=== PATIENT | female | born 1950 | race Caucasian/White ===

== ENCOUNTER 2017-11-10 19:17 | Emergency (ER) | payer MEDICARE, SELFPAY ==
[2017-11-10 19:19] VITALS: BP 214/107; PULSE 72; RESP 20; TEMP 36.5; O2SAT 98
--- NOTE | 2017-11-10 20:05 | CT_ITS ---
STUDY: CT ABDOMEN AND PELVIS WITHOUT CONTRAST REASON FOR EXAM: Female, 67 years old. Abdominal pain, nausea and elevated blood pressure. History of GERD, hypertension, kidney stones, bladder cancer, hernia surgery, cholecystectomy, hysterectomy, bladder resection with urostomy. RADIATION DOSAGE (If Supplied By Facility): CTDIvol = ( 10.58 ) mGy, DLP = ( 705.58 ) mGycm TECHNIQUE: Transaxial images were obtained from the dome of the diaphragm to the symphysis pubis without oral contrast, and without intravenous contrast. Sagittal and coronal images were reconstructed. Individualized dose optimization techniques were used for this CT. COMPARISON: Prior abdomen and pelvic CT exam of March 29, 2017 FINDINGS: The visualized lung bases are unremarkable. The visualized portions of the heart are within normal limits. Normal liver. Absence of the gallbladder. Nondistended common bile duct with no visualized filling defects. Normal spleen. Normal pancreas. Stable 2.2 cm nodule of the left adrenal gland. Normal right adrenal gland. 2 mm nonobstructing stone in the lower pole of the right kidney without hydronephrosis or ureteral stones. The right ureter can be followed to the urinary conduit. Normal size of the left kidney. Negative for hydronephrosis, renal or ureteral stones. The left ureter can be followed to the anterior urinary conduit. Partly food filled stomach. Distended food filled small bowel to the level of herniation of small bowel at the site of the catheter placement into the right abdominal wall. This catheter extends inferiorly and drains a urinary conduit. There is also a small hernia closer to the midline that contains only a small portion of one wall of a dilated loop of small bowel. The transition point of the obstruction appears to be the entrance into the hernia of the right abdominal wall. Minimal diverticulosis of the colon. Unremarkable ileal colic anastomosis. Mild plaque of the aorta. Normal inferior vena cava. Normal retroperitoneum. Status post hysterectomy with no pelvic mass or free fluid of the pelvis. Degenerative changes of the lumbar spine. Demineralized osseous structures. CT/Abdomen/Pelvis without Cont IMPRESSION: High-grade small bowel obstruction secondary to a herniation of small bowel at the site of the urostomy, right mid abdominal wall. Also, there is a second smaller herniation near the midline at approximately the same level which contains only a small portion of the anterior wall of a dilated loop of small bowel. This does not appear to be the point of obstruction but might be acting as a tether point contributing to the obstruction at the urostomy. There is some general wall thickening and stranding in the adjacent soft tissues associated with the most distal obstructed bowel loops. No additional acute findings or changes. Negative for hydronephrosis. The ureters are nonobstructed to the urinary conduit which has been created from the right colon. The conduit appears to be adequately drained by the urostomy. Status post cholecystectomy. Status post hysterectomy. Diverticulosis. Atherosclerosis. Stable nodule of the left adrenal gland. N.B. : The above information has been verbally conveyed by Lor Fernandez MD to Dr. Jigna Coronado, Referring Physician, on 11/10/2017 21:13:02 (ET). Electronically Signed: Lor Fernandez MD at 21:12 EST , Service support , N.B. : The above information has been verbally conveyed by Lor Fernandez MD to Dr. Jigna Coronado, Referring Physician, on 11/10/2017 21:13:02 (ET).
[2017-11-10] MEDS: 0.9% Normal Saline 1,000 ML 150 ML IV (20:14)
[2017-11-10 20:15] LABS: Absolute Lymphocyte Count 2.67 X10^3/ul (0.83-4.51); Absolute Neutrophil Count 4.7 X10^3/uL (2.0-7.7); Basophil# 0.02 X10^3/uL; Basophil% 0.2 % (0-1); Eosinophil# 0.12 X10^3/uL; Eosinophils% 1.5 % (0-5); Hematocrit 41.9 % (37-47); Hemoglobin 13.7 g/dl (12.0-15.0); Lymphocyte # 2.67 X10^3/ul (4.0); Lymphocyte % 32.8 % (19-41); Mean Corp Hgb Conc 32.7 g/gl (32-36); Mean Corpuscular Volume 88.8 fL (81-99); Mean Platelet Vol. 9.3 fl (6.2-12.0); Monocyte# 0.59 X10^3/uL; Monocyte% 7.2 % (0-10); Neutrophil # 4.73 X10^3/uL (2.7-7.7); Neutrophil % 58.2 % (47-70); Platelet Count 228 K/mm3 (150-450); RBC Distribution Width CV 13.6 % (11.6-14.6); RBC Distribution Width SD 44.4 fl (35.1-43.9); Red Blood Count 4.72 M/mm3 (4.2-5.4); White Blood Count 8.1 K/mm3 (4.4-11.0)
[2017-11-10] MEDS: Ondansetron 4 MG/2 ML Vial IV ×2 (20:15→21:36)
[2017-11-10 20:16] LABS: POSITIVE COUNT NO; POSITIVE DIFFERENTIAL NO; POSITIVE MORPHOLOGY NO
[2017-11-10 20:25] LABS: AST(SGOT) 16 U/L (15-37); Alanine Aminotransfer ALT/SGPT 18 U/L (13-56); Albumin, Serum 3.9 g/dL (3.2-5.0); Alkaline Phosphatase 102 U/L (45-117); Anion Gap 9 (5-15); BUN 16 mg/dL (7-18); BUN/Creat Ratio 17.2 RATIO (10-20); Bilirubin, Direct 0.11 mg/dL (0.00-0.30); Calcium,Total 9.3 mg/dL (8.5-10.1); Chloride 111 mmol/L (98-107); Creatinine, Serum 0.93 mg/dL (0.55-1.02); EST Glomerular Filtration Rate 64 mL/min (>60); Est Glom Filt Rate - Afr Amer 78 mL/min (>60); Estimated Creatinine Clearance 49.22 ml/min; Globulin 3.6 g/dL (2.2-4.2); Glucose 96 mg/dL (70-110); Lactic Acid 0.7 mmol/L (0.4-2.0); Lipase 108 U/L (73-393); Protein, Total 7.5 g/dL (6.4-8.2); Sodium Level 144 mmol/L (136-145)
[2017-11-10 21:17] VITALS: BP 184/92; PULSE 77; RESP 22; O2SAT 97
--- NOTE | 2017-11-10 21:59 | ED.VISSUMM ---
- ER Visit Summary Date of Service: 11/10/17 Chief Complaint: Abdominal pain and nausea History of Present Illness: The patient is a 67 F who reports onset of abdominal pain and nausea earlier this evening. She points to the epigastric region. Past history is significant for bladder cancer. She has had a urostomy, hysterectomy, multiple hernia repair surgeries. Patient states she has a known abdominal hernia that they have been watching. She was told he would not open her back up for surgery unless it was an emergency. Physical Examination: Blood pressure on arrival is 214/107, temperature 97.7, heart rate 72, respiratory rate 20, pulse ox 98% on room air. Patient's lying in bed appears uncomfortable. Heart is regular rate and rhythm. Lung sounds are clear. Abdomen is soft with tenderness in the epigastric region. She has hypoactive bowel sounds. Urostomy is in place in the right lower abdomen. This area is nontender to palpation. Test Results: CBC and chemistry studies are normal. LFTs and lipase are normal. Lactate is normal at 0.7. CT the flank reveals high-grade small bowel obstruction secondary to herniation of small bowel at the site of the urostomy. This is located in the right mid abdominal wall. There is a secondary hernia just medial to this that may be a tether point. Emergency Department Course and Treatment: Patient was medically with morphine, Zofran, and IV fluids. On repeat evaluation patient was significantly improved. When I went back in to talk about test results, patient reports her pain is starting to return. Blood pressure is significantly improved with pain control. I spoke with Dr. Mcfarland, on-call for surgery. He advises that parastomal hernias need to be repaired with moving the stoma and repair of the hernia. We do not have a specialist here to do that. I spoke with the transfer line at [facility] with the patient had her previous surgeries. Patient has been accepted by Dr. Jones and will be seen in the emergency room. Treatment Plan: [] Disposition: Transfer Impression: Parastomal hernia causing small bowel obstruction This note was generated with [employer] dictation software. It may contain incorrect words, spelling, and punctuation that were not noted in review of the chart prior to signing ED Disposition - Plan for ED Patient: Chief Complaint: Abd Pain Referrals: Antonio Mackey MD [Primary Care Provider] -
--- NOTE | 2017-11-10 22:04 | ED.DCSUM_ITS ---
- ER Visit Summary Date of Service: 11/10/17 Chief Complaint: Abdominal pain and nausea History of Present Illness: The patient is a 67 F who reports onset of abdominal pain and nausea earlier this evening. She points to the epigastric region. Past history is significant for bladder cancer. She has had a urostomy , hysterectomy, multiple hernia repair surgeries. Patient states she has a known abdominal hernia that they have been watching. She was told he would not open her back up for surgery unless it was an emergency. Physical Examination: Blood pressure on arrival is 214/107, temperature 97.7, heart rate 72, respiratory rate 20, pulse ox 98% on room air. Patient's lying in bed appears uncomfortable. Heart is regular rate and rhythm. Lung sounds are clear. Abdomen is soft with tenderness in the epigastric region. She has hypoactive bowel sounds. Urostomy is in place in the right lower abdomen. This area is nontender to palpation. Test Results: CBC and chemistry studies are normal. LFTs and lipase are normal. Lactate is normal at 0.7. CT the flank reveals high-grade small bowel obstruction secondary to herniation of small bowel at the site of the urostomy. This is located in the right mid abdominal wall. There is a secondary hernia just medial to this that may be a tether point. Emergency Department Course and Treatment: Patient was medically with morphine, Zofran, and IV fluids. On repeat evaluation patient was significantly improved. When I went back in to talk about test results, patient reports her pain is starting to return. Blood pressure is significantly improved with pain control. I spoke with Dr. Mcfarland, on-call for surgery. He advises that parastomal hernias need to be repaired with moving the stoma and repair of the hernia. We do not have a specialist here to do that. I spoke with the transfer line at [facility] with the patient had her previous surgeries. Patient has been accepted by Dr. Jones and will be seen in the emergency room. Treatment Plan: [] Disposition: Transfer Impression: Parastomal hernia causing small bowel obstruction This note was generated with [employer] dictation software. It may contain incorrect words, spelling, and punctuation that were not noted in review of the chart prior to signing ED Disposition - Plan for ED Patient: Chief Complaint: Abd Pain Referrals: Antonio Mackey MD [Primary Care Provider] -
[2017-11-10 22:05] VITALS: BP 149/104; PULSE 80; RESP 13; O2SAT 95
--- NOTE | 2017-11-10 22:35 | ED.RN ---
REPORT TO [facility]. PT SKIN P/W/D, RESP EVEN AND UNLABORED, PT A&O X 3, NO DISTRESS NOTED. PT OUT OF ED WITH [facility] FOR TRANSPORT TO [facility].
== END 2017-11-10 22:37 | disposition short-term general hospital (02) ==
PROVIDERS: Emergency Provider Emergency Medicine; Family Provider Family Medicine; PCP Family Medicine
DX: K43.3 Parastomal hernia with obstruction, without gangrene (principal); Z85.51 Personal history of malignant neoplasm of bladder; Z90.710 Acquired absence of both cervix and uterus; Z90.49 Acquired absence of other specified parts of digestive tract; Z87.19 Personal history of other diseases of the digestive system; Z93.6 Other artificial openings of urinary tract status; K21.9 Gastro-esophageal reflux disease without esophagitis; I10 Essential (primary) hypertension; E78.00 Pure hypercholesterolemia, unspecified; Z87.442 Personal history of urinary calculi; Z72.0 Tobacco use
CPT/HCPCS: 74176; 80048; 80076; 83605; 83690; 85025; 96361; 96374; 96375; 96376; 99285; J7030; A4216; J2405

== ENCOUNTER → 2017-12-06 14:33 | Outpatient (CLI) | payer MEDICARE, SELFPAY ==
--- NOTE | 2017-12-06 14:36 | RAD_ITS ---
STUDY: X-RAY - RIGHT KNEE REASON FOR EXAM: Female, 67 years old. Right-sided knee pain after injury one week ago. TECHNIQUE: 3 view(s) of the knee. COMPARISON: None. FINDINGS: Normal visualized distal femur. Normal visualized proximal tibia and fibula. Normal proximal tibiofibular articulation. There is no demonstrated fracture. Normal medial femorotibial compartment. Normal lateral femorotibial compartment. There is mild degenerative arthrosis of the patellofemoral articulation. There is a soft tissue prominence in the suprapatellar region suggesting a small volume joint effusion. The soft tissue structures are unremarkable. RAD/Knee 3 Views IMPRESSION: 1. No radiographic evidence for acute or healing fracture. 2. Small joint effusion. Electronically Signed: Caitlyn Cobian MD at 17:13 EST , Service support ,
== END ==
PROVIDERS: Family Provider Family Medicine; PCP Family Medicine; Visit Provider Family Medicine
DX: S89.91XA Unspecified injury of right lower leg, initial encounter (principal); X58.XXXA Exposure to other specified factors, initial encounter
CPT/HCPCS: 73562

== ENCOUNTER 2018-01-11 09:41 | Outpatient (RCR) | payer MEDICARE, SELFPAY ==
[2018-01-11 10:01] VITALS: BP 149/89; PULSE 61; RESP 16; TEMP 36.2; BMI 28.0
--- NOTE | 2018-01-11 23:01 | HP.PCM_ITS ---
(1) Abdominal wall ulcer Status: Chronic Current Visit: Yes Code(s): L98.499 - Non-pressure chronic ulcer of skin of other sites with unspecified severity (2) History of bladder cancer Status: Chronic Current Visit: No Code(s): Z85.51 - Personal history of malignant neoplasm of bladder (3) Suprapubic catheter Status: Chronic Current Visit: Yes Code(s): Z93.59 - Other cystostomy status History of Present Illness Date of Service: 01/11/18 Chief Complaint: Betsy (Abdominal ) Stoma Ulcer History of Wound: Ms. Crawford is a 67yo with a Chronic history of Abdominal wall /Stoma site ulcer. She also has a history of Bladder Ca (20 years ago )s/p Surgery and a permanent Suprapubic Catheter. She ahd been seen here in the past for her chronic Stoma site ulcer. Shee has had no significant change in stoma ulcer over the years however, patient states that twice daily dressing with Aquacel has kept it stable. She is here for her biannual check up and refill on supplies. She ahs no concerns at this time. Past Medical History Past Medical History: Chronic Problems Suprapubic catheter (Chronic) Abdominal wall ulcer (Chronic) History of tobacco use (Chronic) History of bladder cancer (Chronic) History of kidney stones (Chronic) GERD (gastroesophageal reflux disease) (Chronic) Chronic low back pain (Chronic) Surgical History: cholecystectomy, herniorrhaphy, - - Removal of bladder with reconstruction. The surgery was 20 years ago. Allergies/Adverse Reactions: Allergies Iodinated Contrast- Oral and IV Dye [Iodinated Contrast Media - IV Dye] Allergy (Verified 01/11/18 10:10) Other Penicillins Allergy (Verified 01/11/18 10:10) Rash Sulfa (Sulfonamide Antibiotics) Allergy (Verified 01/11/18 10:10) Rash amlodipine Adverse Reaction (Verified 01/11/18 10:19) Other ciprofloxacin [From Cipro] Adverse Reaction (Verified 01/11/18 10:10) Other ciprofloxacin HCl [From Cipro] Adverse Reaction (Verified 01/11/18 10:10) Other hydromorphone HCl [From Dilaudid] Adverse Reaction (Verified 01/11/18 10:10) Other nitrofurantoin [From Macrobid] Adverse Reaction (Verified 01/11/18 10:10) Other nitrofurantoin macrocrystalline [From Macrobid] Adverse Reaction (Verified 01/11 10:10) Other pramipexole Adverse Reaction (Verified 01/11/18 10:19) Other sucralfate Adverse Reaction (Verified 01/11/18 10:19) Other Home Medications: Ambulatory Orders Medication Instructions Recorded Gabapentin [Neurontin] 300 mg PO BID 07/19/13 Omeprazole [Prilosec] 40 mg PO DAILY 07/19/13 Cholecalciferol (Vitamin D3) 100,000 unit PO QWEEK 02/09/17 [Vitamin D] Cyclobenzaprine [Flexeril] 10 mg PO QHS 02/09/17 Lisinopril [Zestril] 10 mg PO DAILY 02/09/17 Potassium Citrate [Urocit-K] 10 meq PO TID 02/09/17 Calcium Carbonate/Vitamin D3 1 each PO DAILY 01/11/18 [Calcium 600-Vit D3 200 Tablet] Hydrocodone/Acetaminophen [[facility] 1 each PO BID 01/11/18 5-325 Tablet] Smoking Status: Current every day smoker Review of Systems Constitutional: Denies: Anorexia, Malaise, Weakness Eyes: Denies: Blurred vision, Eyelid Inflammation HEENT: Denies: Difficulty Hearing, Difficulty Swallowing, Head Aches Cardiovascular: Denies: Chest Pain, Chest Tightness, Syncope Respiratory: Denies: Cough, Hemoptysis, Shortness of breath at rest Gastrointestinal: Denies: Abdominal Pain, Hematemesis, Vomiting Skin: Denies: Dryness, Jaundice Neurological: Denies: Difficulty swallowing, Seizures - Physical Exam Vital Signs Temp Pulse Resp BP 97.1 F L 61 16 149/89 H 01/11/18 10:01 01/11/18 10:01 01/11/18 10:01 01/11/18 10:01 General: Alert, Oriented x3, Cooperative, No apparent distress HEENT: Atraumatic, Normocephalic Oral: Moist Mucosa Neck: Supple Lungs: Normal air movement Cardiovascular: Regular rate, Regular Rhythm Abdomen: Soft, Non Tender Extremities: No cyanosis Skin: Ulcer/ Wound Wound Measurements and Assessment WC - Nurse 1 - General Ulcer Measurement Start: 01/11/18 10:01 Freq: Status: Active Protocol: Activity Type Activity Date Activity User E-Sign Co-Sign Detail Recorded Client Recorded Date Recorded By Document 01/11/18 10:01 [facility] [id number] 01/11/18 10:07 [facility] 01/11/18 10:01 W[facility] Nurse 1 [Ulcer Assessment] #2- SUPRAPUBIC CATH SITE -Combined with other wound No -Current Size (cm) - Length 1.5 -Current Size (cm) - Width 1.6 -Current Size (cm) - Depth 0.1 -Total Square Cm 2.40 -Date of Last Picture (Recall this 01/11/18 field) -Photo Taken Yes -Epithelialization None Present -Tunneling No -Undermining/Tunneling No -Circular Undermining No -Exudate Amt None Present (0 %) -Wound Margin Distinct, Outline Attached -Granulation Amt Large (67-100%) -Granulation Quality Red -Slough/Fibrin No -Necrosis Amt None Present (0 %) -Structure Exposed None/Limited to Skin Breakdown -Texture (Betsy-wound Skin Appearance) Scarring -Moisture (Betsy-wound Skin Appearance Assessed ) -Color (Betsy-wound Skin Appearance) Assessed -Temperature (Betsy-wound Skin No Abnormality Appearance) (Pt Warm) -Tenderness on Palpation (Betsy-wound No Skin Appearance) -Ulcer Cleansing Rinsed/ Irrigated with Saline -Foul Odor after Cleansing No -Anesthetic Used 4% Lidocaine Solution Musculoskeletal: No Muscle Wasting Neurological: Cranial nerves II-XII grossly intact Psych/Mental Status: Normal Affect Debridement Note No debridement was completed today Assessment/Plan Active Problems Suprapubic catheter (Chronic) Abdominal wall ulcer (Chronic) Assessment: Chronic ulcer of stoma. Remote history of bladder cancer. Nicotine dependence. Plan: Ms. Crawford is here for follow up of her chronic however stable betsy Stoma Ulcer. She hs been dressing twice daily with Aquacel and denies any concerns at this time. She deneis increased foul smell or discharge. Continue Aquacel twice daily to the area. Maintain good hygeine and continue increased protein intake. Follow up in 6 months.
== END 2018-02-06 23:59 ==
LOC: WC 09:41
PROVIDERS: Family Provider Family Medicine; PCP Family Medicine; Visit Provider Internal Medicine
DX: K28.7 Chronic gastrojejunal ulcer without hemorrhage or perforation (principal); Z93.59 Other cystostomy status; Z85.51 Personal history of malignant neoplasm of bladder; K21.9 Gastro-esophageal reflux disease without esophagitis; G89.29 Other chronic pain; M54.9 Dorsalgia, unspecified; Z79.899 Other long term (current) drug therapy; F17.200 Nicotine dependence, unspecified, uncomplicated
CPT/HCPCS: 99213; G0463

== ENCOUNTER → 2018-03-02 09:39 | Outpatient (CLI) | payer MEDICARE, SELFPAY ==
[2018-03-02 09:45] LABS: Mucous, Urine 0 SEEN /hpf (<or=2+); Squamous Epithelial Cells - UA 0 SEEN /hpf (5-10)
[2018-03-02 12:35] LABS: ALB/GLOB Ratio 0.9 RATIO (0.9-2.4); AST(SGOT) 18 U/L (15-37); Alanine Aminotransfer ALT/SGPT 18 U/L (13-56); Albumin, Serum 3.7 g/dL (3.2-5.0); Alkaline Phosphatase 106 U/L (45-117); Anion Gap 6 (5-15); BUN 24 mg/dL (7-18); BUN/Creat Ratio 23.8 RATIO (10-20); Calcium,Total 8.9 mg/dL (8.5-10.1); Chloride 107 mmol/L (98-107); Cholesterol 230 mg/dL (200); Creatinine, Serum 1.01 mg/dL (0.55-1.02); EST Glomerular Filtration Rate 58 mL/min (>60); Est Glom Filt Rate - Afr Amer 70 mL/min (>60); Globulin 3.9 g/dL (2.2-4.2); Glucose 94 mg/dL (74-106); High Density Lipoprotein 55 mg/dL; Potassium 4.6 mmol/L (3.5-5.1); Protein, Total 7.6 g/dL (6.4-8.2); Sodium Level 138 mmol/L (136-145); Triglycerides 124 mg/dL; Very Low Density Lipoprotein 25 mg/dL (5-40)
[2018-03-02 12:41] LABS: Color, Urine Yellow (Yellow); Glucose, Dipstick Normal (Normal); Ketone-Dipstick Negative (Negative); Leukocyte Esterase-Dipstick 100 /ul (Negative); Nitrite-Dipstick Positive (Negative); Occult Blood-Urine 25 /ul (Negative); Protein-Dipstick 30 mg/dl (Negative); Urine Bilirubin Dipstick Negative (Negative); Urine Clarity Cloudy (Clear); Urine Urobilinogen Normal (Normal)
[2018-03-02 12:51] LABS: Bacteria 2+ /hpf (None Seen); Red Blood Cells-Urine 0-5 SEEN /hpf (0-5); White Blood Cells 0-5 SEEN /hpf (0-5)
[2018-03-02 13:02] LABS: Absolute Lymphocyte Count 1.76 X10^3/ul (0.83-4.51); Absolute Neutrophil Count 5.8 X10^3/uL (2.0-7.7); Basophil# 0.02 X10^3/uL; Basophil% 0.2 % (0-1); Eosinophil# 0.13 X10^3/uL; Eosinophils% 1.6 % (0-5); Hematocrit 42.8 % (37-47); Hemoglobin 13.8 g/dl (12.0-15.0); Lymphocyte # 1.76 X10^3/ul (4.0); Lymphocyte % 21.2 % (19-41); Mean Corp Hgb Conc 32.2 g/gl (32-36); Mean Corpuscular Hgb 29.5 pg (27.0-32.0); Mean Corpuscular Volume 91.5 fL (81-99); Mean Platelet Vol. 9.7 fl (6.2-12.0); Monocyte# 0.61 X10^3/uL; Monocyte% 7.4 % (0-10); Neutrophil # 5.76 X10^3/uL (2.7-7.7); Neutrophil % 69.5 % (47-70); Platelet Count 258 K/mm3 (150-450); RBC Distribution Width CV 14.5 % (11.6-14.6); RBC Distribution Width SD 47.5 fl (35.1-43.9); Red Blood Count 4.68 M/mm3 (4.2-5.4); White Blood Count 8.3 K/mm3 (4.4-11.0)
[2018-03-02 13:05] LABS: POSITIVE COUNT NO; POSITIVE DIFFERENTIAL NO; POSITIVE MORPHOLOGY NO
[2018-03-03 11:17] LABS: Vitamin D,25 Hydroxy 15.6 ng/mL (29.95-100.01)
[2018-03-03 14:38] LABS: PTHIN 72.7 pg/mL (18.4-80.1)
== END ==
PROVIDERS: Family Provider Family Medicine; PCP Family Medicine; Visit Provider Family Medicine
DX: I10 Essential (primary) hypertension (principal); E78.5 Hyperlipidemia, unspecified; E55.9 Vitamin D deficiency, unspecified; M62.81 Muscle weakness (generalized)
CPT/HCPCS: 36415; 80053; 80061; 81001; 82306; 83970; 84100; 85025

== ENCOUNTER 2018-03-04 08:33 | Emergency (ER) | payer MEDICARE, SELFPAY ==
[2018-03-04 08:33] VITALS: BP 152/82; PULSE 60; RESP 24; TEMP 37; O2SAT 97; BMI 28.8
--- NOTE | 2018-03-04 08:47 | RAD_ITS ---
STUDY: X-RAY - RIGHT ELBOW REASON FOR EXAM: Female, 68 years old. Pain for several days. No known injury. TECHNIQUE: 5 view(s) of the elbow with flexion and extension. COMPARISON: None. FINDINGS: Normal visualized humerus, radius and ulna. Normal radiocapitellar and ulnotrochlear articulations. The soft tissue structures are unremarkable. RAD/Elbow min 3 Views IMPRESSION: Normal x-ray examination of the elbow. Electronically Signed: Alex Lui MD at 9:40 EDT Tel , Service support ,
[2018-03-04] MEDS: morphine 8 MG/ML Syringe 6 MG IM (08:59)
[2018-03-04] MEDS: predniSONE 20 MG Tablet 40 MG PO (09:19)
--- NOTE | 2018-03-04 09:56 | ED.VISSUMM ---
- ER Visit Summary Date of Service: 03/04/18 Chief Complaint: [Right elbow pain] History of Present Illness: The patient is a 68 F [presents the emergency department with pain in her right elbow that started 3 days ago. Patient denies any trauma. Patient is right-hand dominant. Patient denies any fever or recent illness. Patient states that she was sick in January with upper respiratory infection. Patient does not have a history of gout or pseudogout. Patient denies weakness in the extremity. The pain is very positional patient has pain with extension at the elbow. Patient noticed some swelling to the area of the elbow. But no erythema.] Physical Examination: [HEENT-PERRLA, EOMI. Cranial nerves II through XII grossly intact. TMs clear. Mucous membranes moist. No adenopathy. Cardiovascular-regular rate and rhythm without murmur or ectopy Lungs-clear to auscultation, chest wall stable without crepitus or subcu emphysema Abdomen-normoactive bowel sounds, soft, nontender, no rebound or rigidity, no peritoneal signs. Extremities-intact ?4, normal range of motion, normal pulses, atraumatic]. Right elbow-patient has a small joint effusion at the right elbow posteriorly noted there is no evidence for bursitis. Patient has pain with extension of the elbow. No significant edema of the forearm or upper arm. No ropes or cords palpated. Patient has normal pulses. There is no cellulitis or erythema noted. Test Results: [X-rays of the right elbow were normal] Emergency Department Course and Treatment: [Patient was medicated with morphine and prednisone.] Treatment Plan: [I suspect etiology of her symptoms likely gout therefore will start on prednisone and patient has Waldo at home for pain. I will place patient in a sling. Patient has follow-up appointment with her primary care physician in 4 days.] Disposition: [Discharged home in stable condition. Patient advised to return if worsening pain, fever, redness, increased swelling, or condition should worsen in any way.] Impression: [Right elbow pain-suspect gout] This note was generated with [employer] software. It may contain incorrect words, spelling, and punctuation that were not noted in review of the chart prior to signing ED Disposition - Plan for ED Patient: Chief Complaint: Upper Extremity Injury Referrals: Antonio Mackey MD [Primary Care Provider] -
--- NOTE | 2018-03-04 10:01 | ED.DEP ---
ED Disposition - Plan for ED Patient: Chief Complaint: Upper Extremity Injury Instructions: ED Arthritis Gout Prescriptions: Prednisone [Deltasone] 20 mg PO BID #10 tab Referrals: Antonio Mackey MD [Primary Care Provider] - 3-5 Days
[2018-03-04 10:07] VITALS: BP 129/74; PULSE 81; RESP 20; O2SAT 97
--- NOTE | 2018-03-04 10:07 | ED.RN ---
THIS NURSE REVIEWED D/C INSTRUCTIONS WITH PT. PT VERBALIZED UNDERSTANDING OF INSTRUCTIONS. PT DENIES FURTHER NEEDS OR QUESTIONS AT THIS TIME. PT HAS RIDE COMING TO GET HER.
== END 2018-03-04 10:09 | disposition home or self-care (01) ==
LOC: ED 08:57
PROVIDERS: Emergency Provider Emergency Medicine; Family Provider Family Medicine; PCP Family Medicine
DX: M25.521 Pain in right elbow (principal); I10 Essential (primary) hypertension; Z79.899 Other long term (current) drug therapy; Z72.0 Tobacco use
CPT/HCPCS: 73080; 96372; 99285

== ENCOUNTER → 2018-03-10 13:56 | Outpatient (CLI) | payer MEDICARE, SELFPAY ==
[2018-03-10 15:54] LABS: Uric Acid 4.8 mg/dL (2.6-6.0)
== END ==
PROVIDERS: Family Provider Family Medicine; PCP Family Medicine; Visit Provider Family Medicine
DX: M10.9 Gout, unspecified (principal)
CPT/HCPCS: 36415; 84550

== ENCOUNTER 2018-04-02 22:28 | Inpatient (IN) | payer MEDICARE, SELFPAY ==
[2018-04-02 22:29] VITALS: BP 172/74; PULSE 67; RESP 18; TEMP 36.7; BMI 29.9
--- NOTE | 2018-04-02 22:41 | CT_ITS ---
STUDY: CT ABDOMEN AND PELVIS WITHOUT CONTRAST REASON FOR EXAM: Female, 68 years old. Right flank pain RADIATION DOSAGE (If Supplied By Facility): CTDIvol = ( 9.04 ) mGy, DLP = ( 501.29 ) mGycm TECHNIQUE: Transaxial images were obtained from the dome of the diaphragm to the symphysis pubis without oral contrast, and without intravenous contrast. Sagittal and coronal images were reconstructed. Individualized dose optimization techniques were used for this CT. COMPARISON: November 10, 2017 FINDINGS: The lung bases are clear. There is evidence of cystectomy with a right lower quadrant urostomy. A Sol's catheter is within a segment of small bowel in the right inguinal hernia with a catheter placed through the right lower quadrant urostomy. There is extensive right-sided perirenal fluid collection in a nonobstructing 3.4 mm in right calyceal calculus The left kidney is normal. A right lower quadrant parastomal herniation of small bowel is noted. The liver is normal with no dilated intrahepatic biliary radicles. Previous cholecystectomy. The spleen, pancreas and right adrenal are normal. There is a 2.5 cm left adrenal mass with a Hounsfield unit of -7. It is probably a benign adenoma. The stomach is normal. There is no bowel distention, acute appendicitis or diverticulitis. No abnormally constricting large bowel lesions. There is no ascites, free intraperitoneal air or any evidence of epiploic appendagitis. The vascular structures in the retroperitoneum are normal The bones and joints seen are normal with no osteolytic or osteoblastic changes There is no retrocrural, retroperitoneal or mesenteric adenopathy. There is no mesenteric mistiness There is a large right inguinal hernia with loops of bowel in the hernial sac. . CT/Abdomen/Pelvis without Cont IMPRESSION: Previous cystectomy with a right lower quadrant urostomy for drainage. A right-sided hydroureteronephrosis with no evidence of an obstructing ureteric calculus. There is extensive perirenal streakiness and fluid collection. A tiny 3.4 mm nonobstructing right calyceal calculus. A 2.5 cm left adrenal adenoma. A large right-sided inguinal hernia with loops of small bowel in the hernial sac. The balloon portion of a Sol's catheter is within small bowel in the hernial sac. A right lower quadrant parastomal hernia with loops of small bowel within the hernial sac but no subsequent intestinal obstruction. No acute appendicitis or diverticulitis Electronically Signed: Kristopher Shaw, at 0:14 EDT Tel , Service support ,
[2018-04-02 23:15] VITALS: BP 178/80; PULSE 66; RESP 18; O2SAT 94
[2018-04-02] MEDS: 0.9% Normal Saline 1,000 ML 125 ML IV (23:24)
[2018-04-02] MEDS: Ondansetron 4 MG/2 ML Vial IV (23:24)
[2018-04-02] MEDS: Morphine 4 MG/ML Syringe IV (23:24)
[2018-04-02 23:46] LABS: Absolute Lymphocyte Count 1.64 X10^3/ul (0.83-4.51); Absolute Neutrophil Count 13.5 X10^3/uL (2.0-7.7); Basophil# 0.02 X10^3/uL; Basophil% 0.1 % (0-1); Eosinophils% 0.6 % (0-5); Hematocrit 39.4 % (37-47); Hemoglobin 12.7 g/dl (12.0-15.0); Lymphocyte # 1.64 X10^3/ul (4.0); Lymphocyte % 10.1 % (19-41); Mean Corp Hgb Conc 32.2 g/gl (32-36); Mean Corpuscular Hgb 29.2 pg (27.0-32.0); Mean Corpuscular Volume 90.6 fL (81-99); Mean Platelet Vol. 9.4 fl (6.2-12.0); Monocyte# 0.92 X10^3/uL; Monocyte% 5.7 % (0-10); Neutrophil # 13.54 X10^3/uL (2.7-7.7); Neutrophil % 83.4 % (47-70); Platelet Count 240 K/mm3 (150-450); RBC Distribution Width SD 46.7 fl (35.1-43.9); Red Blood Count 4.35 M/mm3 (4.2-5.4); White Blood Count 16.2 K/mm3 (4.4-11.0)
[2018-04-02 23:52] LABS: POSITIVE COUNT NO; POSITIVE DIFFERENTIAL NO; POSITIVE MORPHOLOGY NO
[2018-04-03] VITALS (22 sets, daily range): BP systolic 126–180; BP diastolic 60–103; PULSE 64–84; RESP 15–25; TEMP 36.4–39.2; O2SAT 88–99; BMI 28.7
[2018-04-03] LABS: Anion Gap 5 (5-15); BUN 34 mg/dL (7-18); BUN/Creat Ratio 28.3 RATIO (10-20); Calcium,Total 8.8 mg/dL (8.5-10.1); Chloride 110 mmol/L (98-107); EST Glomerular Filtration Rate 48 mL/min (>60); Est Glom Filt Rate - Afr Amer 58 mL/min (>60); Estimated Creatinine Clearance 37.63 ml/min; Glucose 126 mg/dL (74-106); Potassium 4.4 mmol/L (3.5-5.1); Sodium Level 139 mmol/L (136-145)
[2018-04-03 00:07] LABS: Lactic Acid 0.4 mmol/L (0.4-2.0)
[2018-04-03 00:14] LABS: Mucous, Urine 0 SEEN /hpf (<or=2+); Squamous Epithelial Cells - UA 0 SEEN /hpf (5-10)
[2018-04-03] MEDS: Morphine 4 MG/ML Syringe IV ×2 (00:15→02:43)
[2018-04-03 00:24] LABS: Color, Urine Yellow (Yellow); Glucose, Dipstick Normal (Normal); Ketone-Dipstick 15 mg/dl (Negative); Leukocyte Esterase-Dipstick 25 /ul (Negative); Nitrite-Dipstick Positive (Negative); Occult Blood-Urine 25 /ul (Negative); Protein-Dipstick 30 mg/dl (Negative); Specific Gravity, Urine 1.015 (1.002-1.030); Urine Bilirubin Dipstick Negative (Negative); Urine Clarity Sl. Cloudy (Clear); Urine Urobilinogen Normal (Normal)
[2018-04-03 00:37] LABS: Bacteria 1+ /hpf (None Seen); Red Blood Cells-Urine 0-5 SEEN /hpf (0-5); White Blood Cells 25-50 SEEN /hpf (0-5)
[2018-04-03] MEDS: Ceftriaxone 1 GM/50 ML BAG IV ×2 (00:55→23:19)
--- NOTE | 2018-04-03 00:55 | ED.DCSUM_ITS ---
- ER Visit Summary Date of Service: 04/03/18 Chief Complaint: [Abdominal pain] History of Present Illness: The patient is a 68 F [presents to the emergency department with complaint of abdominal discomfort that started 2 hours ago rather suddenly. Currently rates her pain a 9 out of 10. Patient called EMS who medicated her with fentanyl. Patient complains of nausea but no vomiting. Patient has had some sweats. She denies any fever. Patient does have a history of bladder cancer with resection of her bladder. Patient also has a history of hypertension. Patient has had prior urinary tract infections which she states of come on quickly in the past.] Physical Examination: [HEENT-PERRLA, EOMI. Cranial nerves II through XII grossly intact. TMs clear. Mucous membranes moist. No adenopathy. Cardiovascular-regular rate and rhythm without murmur or ectopy Lungs-clear to auscultation, chest wall stable without crepitus or subcu emphysema Abdomen-normoactive bowel sounds, soft. Patient has tenderness over the right lower quadrant and lower abdomen diffusely. Patient has a suprapubic catheter in place. Patient has some CVA tenderness on the right. Extremities-intact ?4, normal range of motion, normal pulses, atraumatic] Test Results: [CBC with differential obtained showed a white count of 16.2, hemoglobin 12.7, hematocrit 39, placed 240. Chemistries unremarkable. Urinalysis was positive for nitrites and 25 leukocyte esterase, 25-50 WBCs, and +[address] flank obtained showed previous cystectomy and a 2.5 cm left adrenal adenoma. Patient also had right hydro-ureter and hydronephrosis with perirenal stranding and fluid collection. Emergency Department Course and Treatment: [Urine culture was sent and patient was started on Rocephin 1 g IV. Patient was medicated with morphine and Zofran ?2] Treatment Plan: [Patient continues to complain of significant pain and case was discussed with Dr. Hermelindo Perrin who is the patient's urologist. I was asked to admit to hospitalist with consult to him.] Disposition: [Admit] Impression: [Right flank pain-intractable UTI] This note was generated with [employer] dictation software. It may contain incorrect words, spelling, and punctuation that were not noted in review of the chart prior to signing ED Disposition - Plan for ED Patient: Chief Complaint: Flank Pain Referrals: Antonio Mackey MD [Primary Care Provider] -
--- NOTE | 2018-04-03 02:26 | PCM.HP.STD ---
Problem List (1) Pyelonephritis Status: Acute (2) Abdominal wall ulcer Status: Chronic (3) Chronic low back pain Status: Chronic (4) GERD (gastroesophageal reflux disease) Status: Chronic (5) History of bladder cancer Status: Chronic (6) History of kidney stones Status: Chronic (7) History of tobacco use Status: Chronic (8) Suprapubic catheter Status: Chronic History of Present Illness Date of Admission: 04/03/18 Chief Complaint: Pyelonephritis The patient is a 68 year old female w/ h/o bladder cancer s/o surgery and permanent suprapubic cath, abdominal stoma, and HTN admitted for pyelonephritis. She developed sudden right sided flank pain around 8PM. Pain was dull aching and severe. Pain was constant. Nothing appeared to make it better or worse. Pain was not associated with any other symptoms. No radiation of pain. She is nausea but no vomiting. No fever. No chill. Past Medical History Past Medical History (Chronic Problems): Chronic Problems Suprapubic catheter (Chronic) Abdominal wall ulcer (Chronic) History of tobacco use (Chronic) History of bladder cancer (Chronic) History of kidney stones (Chronic) GERD (gastroesophageal reflux disease) (Chronic) Chronic low back pain (Chronic) Allergies Iodinated Contrast- Oral and IV Dye [Iodinated Contrast Media - IV Dye] Allergy (Verified 04/03/18 01:28) started having [place] Penicillins Allergy (Verified 04/02/18 22:39) Rash Sulfa (Sulfonamide Antibiotics) Allergy (Verified 04/02/18 22:39) Rash amlodipine Adverse Reaction (Verified 04/03/18 01:28) nausea, htn, headaches ciprofloxacin [From Cipro] Adverse Reaction (Verified 04/03/18 01:28) stomach problems ciprofloxacin HCl [From Cipro] Adverse Reaction (Verified 04/03/18 01:28) stomach problems hydromorphone HCl [From Dilaudid] Adverse Reaction (Verified 04/03/18 01:28) headache nitrofurantoin [From Macrobid] Adverse Reaction (Verified 04/03/18 01:28) doesn't work nitrofurantoin macrocrystalline [From Macrobid] Adverse Reaction (Verified 04/03/18 01:28) doesn't work pramipexole Adverse Reaction (Verified 04/03/18 01:28) stomach problems sucralfate Adverse Reaction (Verified 04/03/18 01:28) can't swallow Home Medications: Ambulatory Orders Medication Instructions Recorded Calcium Carbonate/Vitamin D3 1 each PO DAILY 04/02/18 [Calcium 600-Vit D3 200 Tablet] Cholecalciferol (Vitamin D3) 100,000 unit PO FR 04/02/18 [Vitamin D] Cyclobenzaprine [Flexeril] 10 mg PO QHS 04/02/18 Gabapentin [Neurontin] 300 mg PO BID 04/02/18 Hydrocodone/Acetaminophen [[place] 1 each PO BID 04/02/18 5-325 Tablet] Lisinopril [Prinivil] 10 mg PO QHS 04/02/18 Omeprazole [Prilosec] 40 mg PO DAILY 04/02/18 Potassium Citrate [Potassium 10 mg PO BID 04/02/18 Citrate ER] Surgical History: cholecystectomy, herniorrhaphy, - - Removal of bladder with reconstruction. The surgery was 20 years ago. 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 Denies: Abdominal Pain, Vomiting Genitourinary: Denies: Dysuria Musculoskeletal: Reports: - - Flank pain. Denies: Joint Pain, Joint Tenderness Skin: Denies: Rash, Wounds Neurological: Denies: Numbness, Tingling, Focal weakness Psychiatric: Denies: Anxiety, Depression, Homicidal Ideations, Suicidal Ideations Hematologic/ Lymphatic: Denies: Easy Bruising, Easy Bleeding VTE Information - Inpt Only VTE Present on Admission: No VTE Mechan Device Prophylaxis: SCD's VTE Pharm Prophylaxis ordered?: Yes Patient Problems: Active and Suspected Problems Pyelonephritis (Acute) - Physical Exam General: Alert, Oriented x3, Cooperative HEENT: Atraumatic, PERRLA, EOMI, Normocephalic Neck: Supple, No JVD, Negative Carotid Bruits Lungs: Clear to auscultation, Normal air movement Cardiovascular: Regular rate, No murmurs Abdomen: Bowel Sounds Present, Soft, Non Tender Extremities: No edema, Capillary Refill Less than 3 Seconds Skin: No rashes, No breakdown Musculoskeletal: No Tenderness to Palpation of Joints or Extremities Neurological: Cranial nerves II-XII grossly intact Psych/Mental Status: Normal Affect, Appropriate Vital Signs Temp Pulse Resp BP Pulse Ox 97.5 F L 64 20 H 170/78 H 93 04/03/18 01:44 04/03/18 01:44 04/03/18 01:44 04/03/18 01:44 04/03/18 01:44 Oxygen Delivery Method Room Air Weight: 73.6 kg Body Mass Index (BMI) 28.7 Assessment/Plan All Active Problems Pyelonephritis (Acute) 68 year old female w/ h/o bladder cancer s/o surgery and permanent suprapubic cath, abdominal stoma, and HTN admitted for pyelonephritis. 1) Pyelonephritis: CT disclosed a right-sided hydroureteronephrosis with no evidence of an obstructing ureteric calculus. There is extensive perirenal streakiness and fluid collection. Will start ceftriaxone and tobramycin. Consulted urology. May need nephrostomy tube. Cultures pending. 2) Right sided hydroureteronephrosis: CT disclosed a tiny 3.4 mm nonobstructing right calyceal calculus. Consulted urology. May need nephrostomy tube. Monitor. 3) Abdominal pain: Probably secondary to extensive perirenal streakiness and fluid collection. Morphine for pain control. Monitor. 4) Prophylaxis: SCD / heparin.
--- NOTE | 2018-04-03 02:33 | NURSING ---
PT REPORTED SHE DID NOT WANT STUCK SEVERAL TIMES TO GIVE BLOOD. RISK MGR OBTAINED 1 CULTURE WITH AM LABS. EMOTIONAL SUPPORT GIVEN TO PATIENT.
--- NOTE | 2018-04-03 02:37 | HP.PCM_ITS ---
Problem List (1) Pyelonephritis Status: Acute (2) Abdominal wall ulcer Status: Chronic (3) Chronic low back pain Status: Chronic (4) GERD (gastroesophageal reflux disease) Status: Chronic (5) History of bladder cancer Status: Chronic (6) History of kidney stones Status: Chronic (7) History of tobacco use Status: Chronic (8) Suprapubic catheter Status: Chronic History of Present Illness Date of Admission: 04/03/18 Chief Complaint: Pyelonephritis The patient is a 68 year old female w/ h/o bladder cancer s/o surgery and permanent suprapubic cath, abdominal stoma, and HTN admitted for pyelonephritis. She developed sudden right sided flank pain around 8PM. Pain was dull aching and severe. Pain was constant. Nothing appeared to make it better or worse. Pain was not associated with any other symptoms. No radiation of pain. She is nausea but no vomiting. No fever. No chill. Past Medical History Past Medical History (Chronic Problems): Chronic Problems Suprapubic catheter (Chronic) Abdominal wall ulcer (Chronic) History of tobacco use (Chronic) History of bladder cancer (Chronic) History of kidney stones (Chronic) GERD (gastroesophageal reflux disease) (Chronic) Chronic low back pain (Chronic) Allergies Iodinated Contrast- Oral and IV Dye [Iodinated Contrast Media - IV Dye] Allergy (Verified 04/03/18 01:28) started having [place] Penicillins Allergy (Verified 04/02/18 22:39) Rash Sulfa (Sulfonamide Antibiotics) Allergy (Verified 04/02/18 22:39) Rash amlodipine Adverse Reaction (Verified 04/03/18 01:28) nausea, htn, headaches ciprofloxacin [From Cipro] Adverse Reaction (Verified 04/03/18 01:28) stomach problems ciprofloxacin HCl [From Cipro] Adverse Reaction (Verified 04/03/18 01:28) stomach problems hydromorphone HCl [From Dilaudid] Adverse Reaction (Verified 04/03/18 01:28) headache nitrofurantoin [From Macrobid] Adverse Reaction (Verified 04/03/18 01:28) doesn't work nitrofurantoin macrocrystalline [From Macrobid] Adverse Reaction (Verified 04/03 01:28) doesn't work pramipexole Adverse Reaction (Verified 04/03/18 01:28) stomach problems sucralfate Adverse Reaction (Verified 04/03/18 01:28) can't swallow Home Medications: Ambulatory Orders Medication Instructions Recorded Calcium Carbonate/Vitamin D3 1 each PO DAILY 04/02/18 [Calcium 600-Vit D3 200 Tablet] Cholecalciferol (Vitamin D3) 100,000 unit PO FR 04/02/18 [Vitamin D] Cyclobenzaprine [Flexeril] 10 mg PO QHS 04/02/18 Gabapentin [Neurontin] 300 mg PO BID 04/02/18 Hydrocodone/Acetaminophen [[place] 1 each PO BID 04/02/18 5-325 Tablet] Lisinopril [Prinivil] 10 mg PO QHS 04/02/18 Omeprazole [Prilosec] 40 mg PO DAILY 04/02/18 Potassium Citrate [Potassium 10 mg PO BID 04/02/18 Citrate ER] Surgical History: cholecystectomy, herniorrhaphy, - - Removal of bladder with reconstruction. The surgery was 20 years ago. 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 Denies: Abdominal Pain, Vomiting Genitourinary: Denies: Dysuria Musculoskeletal: Reports: - - Flank pain. Denies: Joint Pain, Joint Tenderness Skin: Denies: Rash, Wounds Neurological: Denies: Numbness, Tingling, Focal weakness Psychiatric: Denies: Anxiety, Depression, Homicidal Ideations, Suicidal Ideations Hematologic/ Lymphatic: Denies: Easy Bruising, Easy Bleeding VTE Information - Inpt Only VTE Present on Admission: No VTE Mechan Device Prophylaxis: SCD's VTE Pharm Prophylaxis ordered?: Yes Patient Problems: Active and Suspected Problems Pyelonephritis (Acute) - Physical Exam General: Alert, Oriented x3, Cooperative HEENT: Atraumatic, PERRLA, EOMI, Normocephalic Neck: Supple, No JVD, Negative Carotid Bruits Lungs: Clear to auscultation, Normal air movement Cardiovascular: Regular rate, No murmurs Abdomen: Bowel Sounds Present, Soft, Non Tender Extremities: No edema, Capillary Refill Less than 3 Seconds Skin: No rashes, No breakdown Musculoskeletal: No Tenderness to Palpation of Joints or Extremities Neurological: Cranial nerves II-XII grossly intact Psych/Mental Status: Normal Affect, Appropriate Vital Signs Temp Pulse Resp BP Pulse Ox 97.5 F L 64 20 H 170/78 H 93 04/03/18 01:44 04/03/18 01:44 04/03/18 01:44 04/03/18 01:44 04/03/18 01:44 Oxygen Delivery Method Room Air Weight: 73.6 kg Body Mass Index (BMI) 28.7 Assessment/Plan All Active Problems Pyelonephritis (Acute) 68 year old female w/ h/o bladder cancer s/o surgery and permanent suprapubic cath, abdominal stoma, and HTN admitted for pyelonephritis. 1) Pyelonephritis: CT disclosed a right-sided hydroureteronephrosis with no evidence of an obstructing ureteric calculus. There is extensive perirenal streakiness and fluid collection. Will start ceftriaxone and tobramycin. Consulted urology. May need nephrostomy tube. Cultures pending. 2) Right sided hydroureteronephrosis: CT disclosed a tiny 3.4 mm nonobstructing right calyceal calculus. Consulted urology. May need nephrostomy tube. Monitor. 3) Abdominal pain: Probably secondary to extensive perirenal streakiness and fluid collection. Morphine for pain control. Monitor. 4) Prophylaxis: SCD / heparin.
[2018-04-03] MEDS: Ondansetron 4 MG/2 ML Vial IV ×3 (02:41→19:34)
[2018-04-03 03:13] LABS: Anion Gap 7 (5-15); BUN 32 mg/dL (7-18); BUN/Creat Ratio 26.4 RATIO (10-20); Calcium,Total 8.5 mg/dL (8.5-10.1); Chloride 111 mmol/L (98-107); Creatinine, Serum 1.21 mg/dL (0.55-1.02); EST Glomerular Filtration Rate 47 mL/min (>60); Est Glom Filt Rate - Afr Amer 57 mL/min (>60); Estimated Creatinine Clearance 37.32 ml/min; Glucose 133 mg/dL (74-106); Potassium 3.9 mmol/L (3.5-5.1); Sodium Level 138 mmol/L (136-145)
[2018-04-03 03:18] LABS: Hematocrit 45.6 % (37-47); Hemoglobin 14.4 g/dl (12.0-15.0); Mean Corp Hgb Conc 31.6 g/gl (32-36); Mean Corpuscular Hgb 29.4 pg (27.0-32.0); Mean Corpuscular Volume 93.1 fL (81-99); Mean Platelet Vol. 9.3 fl (6.2-12.0); Platelet Count 160 K/mm3 (150-450); RBC Distribution Width SD 47.5 fl (35.1-43.9); White Blood Count 13.6 K/mm3 (4.4-11.0)
[2018-04-03 03:20] LABS: Scan Indicated on CBC? Y/N NO
[2018-04-03] MEDS: Morphine 2 MG/ML Syringe IV ×3 (05:45→13:14)
--- NOTE | 2018-04-03 07:05 | NURSING ---
DR KATE NOTIFIED OF CONSULT. NEW ORDER [facility] TO HAVE A CT GUIDED RIGHT NEPHROSTOMY TUBE PLACED BY RADIOLOGY. PAGED CT AND SPOKE WITH JOSE. INFORMED THEY WILL HAVE TO CHECK DR CABRAL'S SCHEDULE FOR TODAY & GET BACK TO [place].
--- NOTE | 2018-04-03 07:31 | PCM.CONS.U ---
Reason for Consult Date of Consultation: 04/03/18 Reason for Consultation: RIGHT HYDRONEPHROSIS History of Present Illness: The patient is a 68 year old female h/o bladder cancer has a neobladder, back in nov had small bowel back in nov and now hydro managed with NG tube decompression, h.o stones in the past. sudden onset of right flank pain, ct scan with hydronephrosis with R hydronephrosis. plan for right nephrostomy tube. Past Medical History Past Medical History (Chronic Problems): Chronic Problems Suprapubic catheter (Chronic) Abdominal wall ulcer (Chronic) History of tobacco use (Chronic) History of bladder cancer (Chronic) History of kidney stones (Chronic) GERD (gastroesophageal reflux disease) (Chronic) Chronic low back pain (Chronic) Allergies Iodinated Contrast- Oral and IV Dye [Iodinated Contrast Media - IV Dye] Allergy (Verified 04/03/18 01:28) started having [place] Penicillins Allergy (Verified 04/02/18 22:39) Rash Sulfa (Sulfonamide Antibiotics) Allergy (Verified 04/02/18 22:39) Rash amlodipine Adverse Reaction (Verified 04/03/18 01:28) nausea, htn, headaches ciprofloxacin [From Cipro] Adverse Reaction (Verified 04/03/18 01:28) stomach problems ciprofloxacin HCl [From Cipro] Adverse Reaction (Verified 04/03/18 01:28) stomach problems hydromorphone HCl [From Dilaudid] Adverse Reaction (Verified 04/03/18 01:28) headache nitrofurantoin [From Macrobid] Adverse Reaction (Verified 04/03/18 01:28) doesn't work nitrofurantoin macrocrystalline [From Macrobid] Adverse Reaction (Verified 04/03/18 01:28) doesn't work pramipexole Adverse Reaction (Verified 04/03/18 01:28) stomach problems sucralfate Adverse Reaction (Verified 04/03/18 01:28) can't swallow Home Medications: Ambulatory Orders Medication Instructions Recorded Calcium Carbonate/Vitamin D3 1 each PO DAILY 04/02/18 [Calcium 600-Vit D3 200 Tablet] Cholecalciferol (Vitamin D3) 100,000 unit PO FR 04/02/18 [Vitamin D] Cyclobenzaprine [Flexeril] 10 mg PO QHS 04/02/18 Gabapentin [Neurontin] 300 mg PO BID 04/02/18 Hydrocodone/Acetaminophen [[place] 1 each PO BID 04/02/18 5-325 Tablet] Lisinopril [Prinivil] 10 mg PO QHS 04/02/18 Omeprazole [Prilosec] 40 mg PO DAILY 04/02/18 Potassium Citrate [Potassium 10 mg PO BID 04/02/18 Citrate ER] Surgical History: cholecystectomy, herniorrhaphy, - - Removal of bladder with reconstruction. The surgery was 20 years ago. 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 Denies: Fever, Weight Change HEENT: Denies: Head Aches, Sinus Congestion, Sinus Drainage Cardiovascular: Denies: Chest Pain, Palpitations Respiratory: Denies: Cough, Shortness of breath at rest, Sputum production Gastrointestinal: Reports: Abdominal Pain. Denies: Nausea, Vomiting Musculoskeletal: Denies: Joint Pain, Joint Tenderness Skin: Denies: Rash, Wounds Neurological: Denies: Numbness, Tingling, Focal weakness Psychiatric: Denies: Anxiety, Depression, Homicidal Ideations, Suicidal Ideations Hematologic/ Lymphatic: Denies: Easy Bruising, Easy Bleeding Physical Exam - Physical Exam Vital Signs Temp 98.2 F 04/03/18 05:32 Pulse 71 04/03/18 06:28 Resp 15 04/03/18 05:32 BP 143/69 H 04/03/18 05:32 Pulse Ox 97 04/03/18 05:32 Intake & Output 04/01/18 04/02/18 04/03/18 23:59 23:59 23:59 Intake Total 1062 / 1062 Output Total 1000 / 1000 Balance 62 / 62 Weight: 73.6 kg Intake: Oral 500 / 500 IV fluid/meds 562 / 562 Output: Urine 1000 / 1000 General: Alert, Oriented x3 HEENT: Atraumatic Oral: Moist Mucosa Neck: Supple Lungs: Normal air movement Abdomen: Soft, Obese Rectal: Exam deferred Groin: No hernia Skin: No rashes Neurological: Cranial nerves II-XII grossly intact Psych/Mental Status: Appropriate Laboratory Tests Past 24 Hrs 04/03/18 04/03/18 02:16 02:16 WBC 13.6 H RBC 4.90 Hgb 14.4 Hct 45.6 MCV 93.1 MCH 29.4 MCHC 31.6 L RDW 14.0 RDW Differential 47.5 H Plt Count 160 MPV 9.3 Sodium 138 Potassium 3.9 Chloride 111 H Carbon Dioxide 20.0 L Anion Gap 7 BUN 32 H Creatinine 1.21 H Estim Creat Clear Calc 37.32 Est GFR (MDRD) Af Amer 57 L Est GFR (MDRD) Non-Af 47 L BUN/Creatinine Ratio 26.4 H Glucose 133 H Calcium 8.5 Assessment/Plan All Active Problems Pyelonephritis (Acute) presents with Right hydronephrosis sudden on set, really unclear why, no stone maybe scar, reflux. plan decompress with R nephrostomy tube and then study maybe antenephrostogram or ureteroscopy.
--- NOTE | 2018-04-03 07:37 | CON.PCM_ITS ---
Reason for Consult Date of Consultation: 04/03/18 Reason for Consultation: RIGHT HYDRONEPHROSIS History of Present Illness: The patient is a 68 year old female h/o bladder cancer has a neobladder, back in nov had small bowel back in nov and now hydro managed with NG tube decompression, h.o stones in the past. sudden onset of right flank pain, ct scan with hydronephrosis with R hydronephrosis. plan for right nephrostomy tube. Past Medical History Past Medical History (Chronic Problems): Chronic Problems Suprapubic catheter (Chronic) Abdominal wall ulcer (Chronic) History of tobacco use (Chronic) History of bladder cancer (Chronic) History of kidney stones (Chronic) GERD (gastroesophageal reflux disease) (Chronic) Chronic low back pain (Chronic) Allergies Iodinated Contrast- Oral and IV Dye [Iodinated Contrast Media - IV Dye] Allergy (Verified 04/03/18 01:28) started having [place] Penicillins Allergy (Verified 04/02/18 22:39) Rash Sulfa (Sulfonamide Antibiotics) Allergy (Verified 04/02/18 22:39) Rash amlodipine Adverse Reaction (Verified 04/03/18 01:28) nausea, htn, headaches ciprofloxacin [From Cipro] Adverse Reaction (Verified 04/03/18 01:28) stomach problems ciprofloxacin HCl [From Cipro] Adverse Reaction (Verified 04/03/18 01:28) stomach problems hydromorphone HCl [From Dilaudid] Adverse Reaction (Verified 04/03/18 01:28) headache nitrofurantoin [From Macrobid] Adverse Reaction (Verified 04/03/18 01:28) doesn't work nitrofurantoin macrocrystalline [From Macrobid] Adverse Reaction (Verified 04/03 01:28) doesn't work pramipexole Adverse Reaction (Verified 04/03/18 01:28) stomach problems sucralfate Adverse Reaction (Verified 04/03/18 01:28) can't swallow Home Medications: Ambulatory Orders Medication Instructions Recorded Calcium Carbonate/Vitamin D3 1 each PO DAILY 04/02/18 [Calcium 600-Vit D3 200 Tablet] Cholecalciferol (Vitamin D3) 100,000 unit PO FR 04/02/18 [Vitamin D] Cyclobenzaprine [Flexeril] 10 mg PO QHS 04/02/18 Gabapentin [Neurontin] 300 mg PO BID 04/02/18 Hydrocodone/Acetaminophen [[place] 1 each PO BID 04/02/18 5-325 Tablet] Lisinopril [Prinivil] 10 mg PO QHS 04/02/18 Omeprazole [Prilosec] 40 mg PO DAILY 04/02/18 Potassium Citrate [Potassium 10 mg PO BID 04/02/18 Citrate ER] Surgical History: cholecystectomy, herniorrhaphy, - - Removal of bladder with reconstruction. The surgery was 20 years ago. 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 Denies: Fever, Weight Change HEENT: Denies: Head Aches, Sinus Congestion, Sinus Drainage Cardiovascular: Denies: Chest Pain, Palpitations Respiratory: Denies: Cough, Shortness of breath at rest, Sputum production Gastrointestinal: Reports: Abdominal Pain. Denies: Nausea, Vomiting Musculoskeletal: Denies: Joint Pain, Joint Tenderness Skin: Denies: Rash, Wounds Neurological: Denies: Numbness, Tingling, Focal weakness Psychiatric: Denies: Anxiety, Depression, Homicidal Ideations, Suicidal Ideations Hematologic/ Lymphatic: Denies: Easy Bruising, Easy Bleeding Physical Exam - Physical Exam Vital Signs Temp 98.2 F 04/03/18 05:32 Pulse 71 04/03/18 06:28 Resp 15 04/03/18 05:32 BP 143/69 H 04/03/18 05:32 Pulse Ox 97 04/03/18 05:32 Intake & Output 04/01/18 04/02/18 04/03/18 23:59 23:59 23:59 Intake Total 1062 / 1062 Output Total 1000 / 1000 Balance 62 / 62 Weight: 73.6 kg Intake: Oral 500 / 500 IV fluid/meds 562 / 562 Output: Urine 1000 / 1000 General: Alert, Oriented x3 HEENT: Atraumatic Oral: Moist Mucosa Neck: Supple Lungs: Normal air movement Abdomen: Soft, Obese Rectal: Exam deferred Groin: No hernia Skin: No rashes Neurological: Cranial nerves II-XII grossly intact Psych/Mental Status: Appropriate Laboratory Tests Past 24 Hrs 04/03/18 04/03/18 02:16 02:16 WBC 13.6 H RBC 4.90 Hgb 14.4 Hct 45.6 MCV 93.1 MCH 29.4 MCHC 31.6 L RDW 14.0 RDW Differential 47.5 H Plt Count 160 MPV 9.3 Sodium 138 Potassium 3.9 Chloride 111 H Carbon Dioxide 20.0 L Anion Gap 7 BUN 32 H Creatinine 1.21 H Estim Creat Clear Calc 37.32 Est GFR (MDRD) Af Amer 57 L Est GFR (MDRD) Non-Af 47 L BUN/Creatinine Ratio 26.4 H Glucose 133 H Calcium 8.5 Assessment/Plan All Active Problems Pyelonephritis (Acute) presents with Right hydronephrosis sudden on set, really unclear why, no stone maybe scar, reflux. plan decompress with R nephrostomy tube and then study maybe antenephrostogram or ureteroscopy.
[2018-04-03] MEDS: 0.9% Normal Saline 1,000 ML 125 ML IV ×3 (08:30→22:17)
--- NOTE | 2018-04-03 08:52 | CT_ITS ---
PROCEDURE: COMPUTERIZED TOMOGRAPHIC GUIDANCE DURING RIGHT PERCUTANEOUS NEPHROSTOMY PROCEDURE. DATE OF EXAMINATION: April 03, 2018. INDICATION: Female, 68 years old. Right hydronephrosis. PHYSICIAN: Adrian Evans M.D. CONSENT: The patient's history and physical findings were reviewed. Prior to the procedure the percutaneous nephrostomy was described to the patient who then signed a consent. SEDATION: Conscious sedation protocol was followed. The patient received 2 mg of Versed and 50 mcg fentanyl intravenously. The conscious sedation protocol was started 11:30 AM and terminated 11:45 AM. The patient was monitored independently by the department nurse. Individualized dose optimization techniques were utilized. CT D: 14.9. DLP: 400.77 TECHNIQUE: A 8.5 [place] percutaneous right nephrostomy catheter was inserted under CT guidance. . Contrast was injected through the right nephrostomy catheter which opacified the right upper collecting system and right ureter. A loop of the pigtail catheter was formed within the right renal pelvis and locked in this position. There is dilatation of the upper collecting system. The catheter was secured to the skin surface and covered with a sterile dressing. The catheter was attached to a drainage bag attached to the patient's leg. CT/Abscess/Fistula/Sinus Tract IMPRESSION: 1. The percutaneous right nephrostomy catheter is in good position with the pigtail portion located in the right renal pelvis. 2. Conscious sedation protocol was followed. 3. The patient tolerated the procedure well. Electronically Signed: Adrian Evans MD at 12:39 EDT Tel [phone], Service support ,
[2018-04-03 08:55] LABS: International Normalized Ratio 0.9; Prothrombin Time (Protime)PT. 12.4 SECONDS (11.7-14.9)
[2018-04-03 08:56] LABS: Partial Thromboplast Time 22.1 Seconds (24.1-36.2)
[2018-04-03] MEDS: Ceftriaxone 1 GM/50 mL Premix x1 IV (09:46)
--- NOTE | 2018-04-03 12:22 | NURSING ---
REPORT CALLED TO АЛЕКСАНДР HARDING. PACO ZAIDI.
[2018-04-03] MEDS: Pantoprazole Sodium 40 MG Tablet PO (13:10)
[2018-04-03] MEDS: HYDROcodone Bitartrate/Apap 5/325 Tablet PO ×2 (13:10→22:17)
[2018-04-03] MEDS: Gabapentin 300 MG Capsule PO (13:11)
[2018-04-03] MEDS: Calcium Carb/Vitamin D 1 TABLET Tablet PO (13:11)
--- NOTE | 2018-04-03 14:11 | CASEMGMT ---
SEE АЛЕКСАНДР ROSE LINK. D/C PLAN: HOME No needs identified. Pt currently uses [facility] for suprapubic catheter supplies. Nephrostomy tube placed. Will need Script for supplies if discharged w/tube in place. [facility] notified of consult for Advanced Directives. Julia BSN АЛЕКСАНДР CM
[2018-04-03] MEDS: 0.9% NaCl Peripheral Flush Adult/Peds IV ×2 (19:34→22:16)
[2018-04-03] MEDS: proCHLORPERazine 10 MG/2 ML Vial IV (22:16)
[2018-04-04] VITALS (9 sets, daily range): BP systolic 107–181; BP diastolic 68–86; PULSE 72–84; RESP 16–18; TEMP 37.1–38.8; O2SAT 95–99
[2018-04-04] MEDS: 0.9% Normal Saline 1,000 ML 125 ML IV ×2 (06:35→15:16)
[2018-04-04 09:29] LABS: Absolute Lymphocyte Count 0.58 X10^3/ul (0.83-4.51); Absolute Neutrophil Count 10.7 X10^3/uL (2.0-7.7); Basophil# 0.02 X10^3/uL; Basophil% 0.2 % (0-1); Eosinophil# 0.05 X10^3/uL; Eosinophils% 0.4 % (0-5); Hematocrit 41.5 % (37-47); Hemoglobin 13.5 g/dl (12.0-15.0); Lymphocyte # 0.58 X10^3/ul (4.0); Lymphocyte % 4.8 % (19-41); Mean Corp Hgb Conc 32.5 g/gl (32-36); Mean Corpuscular Hgb 29.8 pg (27.0-32.0); Mean Corpuscular Volume 91.6 fL (81-99); Monocyte# 0.79 X10^3/uL; Monocyte% 6.5 % (0-10); Neutrophil # 10.67 X10^3/uL (2.7-7.7); Neutrophil % 87.8 % (47-70); Platelet Count 197 K/mm3 (150-450); RBC Distribution Width SD 45.9 fl (35.1-43.9); Red Blood Count 4.53 M/mm3 (4.2-5.4); White Blood Count 12.2 K/mm3 (4.4-11.0)
[2018-04-04 09:36] LABS: Anion Gap 5 (5-15); BUN 12 mg/dL (7-18); BUN/Creat Ratio 11.7 RATIO (10-20); Calcium,Total 8.5 mg/dL (8.5-10.1); Chloride 108 mmol/L (98-107); Creatinine, Serum 1.03 mg/dL (0.55-1.02); Differential Indicated SCAN CRITERIA MET; EST Glomerular Filtration Rate 57 mL/min (>60); Est Glom Filt Rate - Afr Amer 69 mL/min (>60); Estimated Creatinine Clearance 43.84 ml/min; Glucose 106 mg/dL (74-106); POSITIVE COUNT NO; POSITIVE DIFFERENTIAL YES; POSITIVE MORPHOLOGY NO; Potassium 3.8 mmol/L (3.5-5.1); Sodium Level 138 mmol/L (136-145)
--- NOTE | 2018-04-04 09:44 | PCM.PROGNOTE ---
Patient Problems: Active and Suspected Problems Pyelonephritis (Acute) Subjective: Chief complaint: Follow-up after admission for acute pyelonephritis, right side hydroureteronephrosis. Patient seen and examined. No acute events overnight. Today, she has no more abdominal pain or flank pain. Denies any more nausea vomiting. She is still having spikes of fever. Blood pressure is elevated, had a spike of low-grade fever this morning, other vital signs are stable. - Physical Exam General: Alert, Oriented x3, Cooperative, No apparent distress HEENT: Atraumatic, PERRLA, EOMI, Normocephalic Oral: Moist Mucosa, No Gingival or Mucosal Lesions/ Ulcerations Neck: Supple, No JVD, Negative Carotid Bruits, Trachea Midline, Thyroid Normal Size and Texture Lungs: Clear to auscultation, No rhonchi, No wheeze, No rales, Diminished Cardiovascular: Regular rate, Regular Rhythm, Normal S1, Normal S2, PMI Normal Abdomen: Bowel Sounds Present, Soft, Non Tender, Non-Distended, No Hepato-splenomegaly Extremities: No clubbing, No cyanosis, No edema Skin: No rashes, No breakdown Lymphatic: No Cervical, Supraclavicular, or Inguinal Adenopathy Neurological: Cranial nerves II-XII grossly intact, Motor Exam 5/5 strength throughout Psych/Mental Status: Normal Affect, Appropriate, Alert and oriented to time, place, person, mood and affect Vital Signs Temp Pulse Resp BP Pulse Ox 100.1 F H 81 16 181/86 H 97 04/04/18 06:32 04/04/18 06:32 04/04/18 06:32 04/04/18 06:32 04/04/18 06:32 Oxygen Flow Rate (L/min) [5] 2 Oxygen Flow Rate (L/min) [4] 2 Oxygen Flow Rate (L/min) [3] 4 Oxygen Flow Rate (L/min) 2 Oxygen Delivery Method [5] Nasal Cannula Oxygen Delivery Method [4] Nasal Cannula Oxygen Delivery Method [3] Room Air Oxygen Delivery Method [2] Room Air Oxygen Delivery Method [1 ( Room Air Initial Baseline)] Oxygen Delivery Method Nasal Cannula Weight: 162 lb 4.163 oz Body Mass Index (BMI) 28.7 Intake and Output for Last 24 Hours 04/02/18 04/03/18 04/04/18 23:59 23:59 23:59 Intake Total 3769 / 3769 1286 / 1286 Output Total 3150 / 3150 775 / 775 Balance 619 / 619 511 / 511 Laboratory Tests Past 24 Hrs 04/04/18 04/04/18 09:14 09:14 WBC 12.2 H RBC 4.53 Hgb 13.5 Hct 41.5 MCV 91.6 MCH 29.8 MCHC 32.5 RDW 14.0 RDW Differential 45.9 H Plt Count 197 MPV 9.0 Immature Gran % (Auto) 0.300 Neut % (Auto) 87.8 H Lymph % (Auto) 4.8 L [place] % (Auto) 6.5 Eos % (Auto) 0.4 Baso % (Auto) 0.2 Absolute Neuts (auto) 10.7 H Absolute Lymphs (auto) 0.58 L Total Counted Pending Sodium 138 Potassium 3.8 Chloride 108 H Carbon Dioxide 25.0 Anion Gap 5 BUN 12 Creatinine 1.03 H Estim Creat Clear Calc 43.84 Est GFR (MDRD) Af Amer 69 Est GFR (MDRD) Non-Af 57 L BUN/Creatinine Ratio 11.7 Glucose 106 Calcium 8.5 Clinical Impression(s) from Imaging Studies Abdomen/Pelvis CT 04/02/18 22:41 IMPRESSION: Previous cystectomy with a right lower quadrant urostomy for drainage. A right-sided hydroureteronephrosis with no evidence of an obstructing ureteric calculus. There is extensive perirenal streakiness and fluid collection. A tiny 3.4 mm nonobstructing right calyceal calculus. A 2.5 cm left adrenal adenoma. A large right-sided inguinal hernia with loops of small bowel in the hernial sac. The balloon portion of a Sol's catheter is within small bowel in the hernial sac. A right lower quadrant parastomal hernia with loops of small bowel within the hernial sac but no subsequent intestinal obstruction. No acute appendicitis or diverticulitis Electronically Signed: Kristopher Shaw, at 0:14 EDT Tel , Service support , Abscess Drainage 04/03/18 08:52 IMPRESSION: 1. The percutaneous right nephrostomy catheter is in good position with the pigtail portion located in the right renal pelvis. 2. Conscious sedation protocol was followed. 3. The patient tolerated the procedure well. Electronically Signed: Adrian Evans MD at 12:39 EDT Tel [phone], Service support , Medical Necessity - Tobacco Use Smoking Status: Current every day smoker Tobacco Use: Cigarettes Assessment/Plan All Active Problems Pyelonephritis (Acute) This is a 68 years old female patient presented to the medicine because of abdominal and flank pain, found to have acute pyelonephritis, right side hydroureteronephrosis and nonobstructing right calyceal calculus. #1 acute pyelonephritis: She is on IV Rocephin. She still having spikes of low-grade fever, white blood cell count is trending down. Blood and urine cultures are pending. Plan to continue same treatment. #2 right hydroureteronephrosis/nonobstructing right kidney stone: Status post percutaneous right nephrostomy catheter insertion. Urology on the case. Kidney function is improving. Patient has no more pain. #3 dehydration: Secondary to above. She is on IV fluids, BUN and creatinine improving. #4 hypertension: Blood pressure is elevated. Lisinopril held. Plan to start IV hydralazine as needed. #5 GERD: Continue Protonix. #6 DVT prophylaxis: Subcu Lovenox. This note was generated with [employer] dictation software. It may contain incorrect words, spelling, and punctuation that were not noted in checking the note before signing. Code Visit Inpatient E&M: 99222 Subs Hosp L2
--- NOTE | 2018-04-04 09:51 | PN_ITS ---
Patient Problems: Active and Suspected Problems Pyelonephritis (Acute) Subjective: Chief complaint: Follow-up after admission for acute pyelonephritis, right side hydroureteronephrosis. Patient seen and examined. No acute events overnight. Today, she has no more abdominal pain or flank pain. Denies any more nausea vomiting. She is still having spikes of fever. Blood pressure is elevated, had a spike of low-grade fever this morning, other vital signs are stable. - Physical Exam General: Alert, Oriented x3, Cooperative, No apparent distress HEENT: Atraumatic, PERRLA, EOMI, Normocephalic Oral: Moist Mucosa, No Gingival or Mucosal Lesions/ Ulcerations Neck: Supple, No JVD, Negative Carotid Bruits, Trachea Midline, Thyroid Normal Size and Texture Lungs: Clear to auscultation, No rhonchi, No wheeze, No rales, Diminished Cardiovascular: Regular rate, Regular Rhythm, Normal S1, Normal S2, PMI Normal Abdomen: Bowel Sounds Present, Soft, Non Tender, Non-Distended, No Hepato- splenomegaly Extremities: No clubbing, No cyanosis, No edema Skin: No rashes, No breakdown Lymphatic: No Cervical, Supraclavicular, or Inguinal Adenopathy Neurological: Cranial nerves II-XII grossly intact, Motor Exam 5/5 strength throughout Psych/Mental Status: Normal Affect, Appropriate, Alert and oriented to time, place, person, mood and affect Vital Signs Temp Pulse Resp BP Pulse Ox 100.1 F H 81 16 181/86 H 97 04/04/18 06:32 04/04/18 06:32 04/04/18 06:32 04/04/18 06:32 04/04/18 06:32 Oxygen Flow Rate (L/min) [5] 2 Oxygen Flow Rate (L/min) [4] 2 Oxygen Flow Rate (L/min) [3] 4 Oxygen Flow Rate (L/min) 2 Oxygen Delivery Method [5] Nasal Cannula Oxygen Delivery Method [4] Nasal Cannula Oxygen Delivery Method [3] Room Air Oxygen Delivery Method [2] Room Air Oxygen Delivery Method [1 ( Room Air Initial Baseline)] Oxygen Delivery Method Nasal Cannula Weight: 162 lb 4.163 oz Body Mass Index (BMI) 28.7 Intake and Output for Last 24 Hours 04/02/18 04/03/18 04/04/18 23:59 23:59 23:59 Intake Total 3769 / 3769 1286 / 1286 Output Total 3150 / 3150 775 / 775 Balance 619 / 619 511 / 511 Laboratory Tests Past 24 Hrs 04/04/18 04/04/18 09:14 09:14 WBC 12.2 H RBC 4.53 Hgb 13.5 Hct 41.5 MCV 91.6 MCH 29.8 MCHC 32.5 RDW 14.0 RDW Differential 45.9 H Plt Count 197 MPV 9.0 Immature Gran % (Auto) 0.300 Neut % (Auto) 87.8 H Lymph % (Auto) 4.8 L [place] % (Auto) 6.5 Eos % (Auto) 0.4 Baso % (Auto) 0.2 Absolute Neuts (auto) 10.7 H Absolute Lymphs (auto) 0.58 L Total Counted Pending Sodium 138 Potassium 3.8 Chloride 108 H Carbon Dioxide 25.0 Anion Gap 5 BUN 12 Creatinine 1.03 H Estim Creat Clear Calc 43.84 Est GFR (MDRD) Af Amer 69 Est GFR (MDRD) Non-Af 57 L BUN/Creatinine Ratio 11.7 Glucose 106 Calcium 8.5 Clinical Impression(s) from Imaging Studies Abdomen/Pelvis CT 04/02/18 22:41 IMPRESSION: Previous cystectomy with a right lower quadrant urostomy for drainage. A right-sided hydroureteronephrosis with no evidence of an obstructing ureteric calculus. There is extensive perirenal streakiness and fluid collection. A tiny 3.4 mm nonobstructing right calyceal calculus. A 2.5 cm left adrenal adenoma. A large right-sided inguinal hernia with loops of small bowel in the hernial sac. The balloon portion of a Sol's catheter is within small bowel in the hernial sac. A right lower quadrant parastomal hernia with loops of small bowel within the hernial sac but no subsequent intestinal obstruction. No acute appendicitis or diverticulitis Electronically Signed: Kristopher Shaw, at 0:14 EDT Tel , Service support , Abscess Drainage 04/03/18 08:52 IMPRESSION: 1. The percutaneous right nephrostomy catheter is in good position with the pigtail portion located in the right renal pelvis. 2. Conscious sedation protocol was followed. 3. The patient tolerated the procedure well. Electronically Signed: Adrian Evans MD at 12:39 EDT Tel [phone], Service support , Medical Necessity - Tobacco Use Smoking Status: Current every day smoker Tobacco Use: Cigarettes Assessment/Plan All Active Problems Pyelonephritis (Acute) This is a 68 years old female patient presented to the medicine because of abdominal and flank pain, found to have acute pyelonephritis, right side hydroureteronephrosis and nonobstructing right calyceal calculus. #1 acute pyelonephritis: She is on IV Rocephin. She still having spikes of low- grade fever, white blood cell count is trending down. Blood and urine cultures are pending. Plan to continue same treatment. #2 right hydroureteronephrosis/nonobstructing right kidney stone: Status post percutaneous right nephrostomy catheter insertion. Urology on the case. Kidney function is improving. Patient has no more pain. #3 dehydration: Secondary to above. She is on IV fluids, BUN and creatinine improving. #4 hypertension: Blood pressure is elevated. Lisinopril held. Plan to start IV hydralazine as needed. #5 GERD: Continue Protonix. #6 DVT prophylaxis: Subcu Lovenox. This note was generated with [employer] dictation software. It may contain incorrect words, spelling, and punctuation that were not noted in checking the note before signing. Code Visit Inpatient E&M: 38390 Subs Hosp L2
[2018-04-04] MEDS: HYDROcodone Bitartrate/Apap 5/325 Tablet PO ×2 (10:46→21:09)
[2018-04-04] MEDS: Pantoprazole Sodium 40 MG Tablet PO (10:46)
[2018-04-04] MEDS: Gabapentin 300 MG Capsule PO ×2 (10:46→21:09)
[2018-04-04] MEDS: Calcium Carb/Vitamin D 1 TABLET Tablet PO (10:46)
--- NOTE | 2018-04-04 15:20 | CASEMGMT ---
Social Work Note SW received referral that pt would like to complete Advanced Directives. SW in to completed Advanced Directives with pt. Pt is alert and orientated x4. Pt completed Advanced Directives and this SUPRIYA and RN MILTON Canales witnessed pt's signature. SUPRIYA provided original to pt and copy placed on pt's chart. Leonora Rosas H[employer]AMALE WORKER, SE[employer] STAY STITCHER
[2018-04-04] MEDS: Acetaminophen 325 MG Tablet 650 MG PO (21:09)
[2018-04-05] VITALS (7 sets, daily range): BP systolic 97–136; BP diastolic 48–71; PULSE 56–77; RESP 16–18; TEMP 36.6–36.9; O2SAT 95–100
[2018-04-05] MEDS: 0.9% Normal Saline 1,000 ML 125 ML IV (02:05)
[2018-04-05 05:42] LABS: Absolute Lymphocyte Count 0.94 X10^3/ul (0.83-4.51); Absolute Neutrophil Count 5.6 X10^3/uL (2.0-7.7); Basophil# 0.02 X10^3/uL; Basophil% 0.3 % (0-1); Eosinophil# 0.13 X10^3/uL; Eosinophils% 1.8 % (0-5); Hematocrit 34.7 % (37-47); Hemoglobin 11.1 g/dl (12.0-15.0); Lymphocyte # 0.94 X10^3/ul (4.0); Lymphocyte % 12.8 % (19-41); Mean Corpuscular Hgb 29.5 pg (27.0-32.0); Mean Corpuscular Volume 92.3 fL (81-99); Mean Platelet Vol. 9.5 fl (6.2-12.0); Monocyte# 0.67 X10^3/uL; Monocyte% 9.1 % (0-10); Neutrophil # 5.58 X10^3/uL (2.7-7.7); Neutrophil % 75.7 % (47-70); Platelet Count 165 K/mm3 (150-450); RBC Distribution Width SD 45.9 fl (35.1-43.9); Red Blood Count 3.76 M/mm3 (4.2-5.4); White Blood Count 7.4 K/mm3 (4.4-11.0)
[2018-04-05] MEDS: Morphine 2 MG/ML Syringe IV (05:47)
[2018-04-05 05:50] LABS: POSITIVE COUNT NO; POSITIVE DIFFERENTIAL NO; POSITIVE MORPHOLOGY NO
--- NOTE | 2018-04-05 10:20 | PCM.DC ---
- Discharge Diagnoses Current Active Problems: Current Active and Chronic Problems Pyelonephritis (Acute) You will use the following diet at home:: Regular Your food should be the consistency of: Regular Discharge Activity: Return to Normal Activity Weight Bearing Status: Weight bearing as tolerated Call your doctor if you observe: Fever of 101 or Higher, Shortness of breath, Dizziness, Fainting spells, Chest pain, Increased palpitations (irregular heartbeat), Uncontrolled pain Allergies/Adverse Reactions: Allergies Iodinated Contrast- Oral and IV Dye [Iodinated Contrast Media - IV Dye] Allergy (Verified 04/03/18 01:28) started having [place] Penicillins Allergy (Verified 04/02/18 22:39) Rash Sulfa (Sulfonamide Antibiotics) Allergy (Verified 04/02/18 22:39) Rash amlodipine Adverse Reaction (Verified 04/03/18:28) nausea, htn, headaches ciprofloxacin [From Cipro] Adverse Reaction (Verified 04/03/18:28) stomach problems ciprofloxacin HCl [From Cipro] Adverse Reaction (Verified 04/03/18:28) stomach problems hydromorphone HCl [From Dilaudid] Adverse Reaction (Verified 04/03/18:28) headache nitrofurantoin [From Macrobid] Adverse Reaction (Verified 04/03/18:28) doesn't work nitrofurantoin macrocrystalline [From Macrobid] Adverse Reaction (Verified 04/03/18:28) doesn't work pramipexole Adverse Reaction (Verified 04/03/18:28) stomach problems sucralfate Adverse Reaction (Verified 04/03/18:28) can't swallow Medications to take at Discharge Calcium Carbonate/Vitamin D3 [Calcium 600-Vit D3 200 Tablet] 1 each PO DAILY 04/02/18 Cholecalciferol (Vitamin D3) [Vitamin D3] 100,000 unit PO FR 04/02/18 Cyclobenzaprine [Flexeril] 10 mg PO QHS 04/02/18 Gabapentin [Neurontin] 300 mg PO BID 04/02/18 Hydrocodone/Acetaminophen [[place] 5-325 Tablet] 1 each PO BID 04/02/18 Lisinopril [Prinivil] 10 mg PO QHS 04/02/18 Omeprazole [Prilosec] 40 mg PO DAILY 04/02/18 Potassium Citrate [Potassium Citrate ER] 10 mg PO BID 04/02/18 Levofloxacin [Levaquin] 750 mg PO DAILY #7 tab 04/05/18 The following prescriptions were given: Levofloxacin [Levaquin] 750 mg PO DAILY #7 tab Primary Care Physician: Antonio Mackey MD [Primary Care Provider] - Please follow up with your Primary Care Physician in: 1 week. Please Follow Up With: Naeem Perrin MD When: please call his office.
[2018-04-05] MEDS: levoFLOXacin 750 MG Tablet PO (10:43)
[2018-04-05] MEDS: Calcium Carb/Vitamin D 1 TABLET Tablet PO (10:43)
[2018-04-05] MEDS: Gabapentin 300 MG Capsule PO (10:43)
--- NOTE | 2018-04-05 10:43 | PCM.DC.SUM ---
Discharge Date and Diagnosis Date of Admission: 04/03/18 Date of Discharge: 04/05/18 - Primary Discharge Diagnosis Active and Suspected Problems #1 Proteus mirabilis acute pyelonephritis. #2 right hydroureteronephrosis/nonobstructing right kidney stone. #3 dehydration. - Secondary Discharge Diagnosis Chronic Problems Suprapubic catheter (Chronic) Abdominal wall ulcer (Chronic) History of tobacco use (Chronic) History of bladder cancer (Chronic) History of kidney stones (Chronic) GERD (gastroesophageal reflux disease) (Chronic) Chronic low back pain (Chronic) Hospital Course and Treatment Imaging Results: Clinical Impression(s) from Imaging Studies Abdomen/Pelvis CT 04/02/18 22:41 IMPRESSION: Previous cystectomy with a right lower quadrant urostomy for drainage. A right-sided hydroureteronephrosis with no evidence of an obstructing ureteric calculus. There is extensive perirenal streakiness and fluid collection. A tiny 3.4 mm nonobstructing right calyceal calculus. A 2.5 cm left adrenal adenoma. A large right-sided inguinal hernia with loops of small bowel in the hernial sac. The balloon portion of a Sol's catheter is within small bowel in the hernial sac. A right lower quadrant parastomal hernia with loops of small bowel within the hernial sac but no subsequent intestinal obstruction. No acute appendicitis or diverticulitis Electronically Signed: Kristopher Shaw, at 0:14 EDT Tel , Service support , Abscess Drainage 04/03/18 08:52 IMPRESSION: 1. The percutaneous right nephrostomy catheter is in good position with the pigtail portion located in the right renal pelvis. 2. Conscious sedation protocol was followed. 3. The patient tolerated the procedure well. Electronically Signed: Adrian Evans MD at 12:39 EDT Tel [phone], Service support , Dr. perrni, urology. Operations: None Procedures: - - Percutaneous right nephrostomy catheter insertion. Summary of Care Provided: Patient seen and examined on the day of discharge and appeared to be stable to be discharged home. She has no more right flank pain, no more nausea vomiting. Her vital signs are stable. - Physical Exam General: Alert, Oriented x3, Cooperative, No apparent distress. HEENT: Atraumatic, PERRLA, EOMI. Neck: Supple, No JVD, Negative Carotid Bruits, Trachea Midline, Thyroid Normal. Lungs: Clear to auscultation, Normal air movement, No rhonchi, No wheeze, No rales. Cardiovascular: Regular rate, Regular Rhythm, Normal S1, Normal S2, PMI Normal. Abdomen: Bowel Sounds Present, Soft, Non Tender, Non-Distended, No Hepato-splenomegaly. Extremities: No clubbing, No cyanosis, No edema Skin: No rashes, No breakdown Neurological: Neuro grossly intact Vital Signs are stable. Hospital course: The patient is a 68 year old F admitted because of abdominal and right flank pain and she was found to have acute right pyelonephritis with right hydroureteronephrosis and right nonobstructing calyceal calculus. She has a history of bladder cancer status post resection of the bladder and and has NEOBLADDER. she was treated with IV fluids, IV pain medications and IV antibiotics with Rocephin. Urology consulted and she underwent percutaneous nephrostomy catheter insertion. She was found to have mild dehydration and her BUN and creatinine was slightly elevated. This was treated with IV fluids and her BUN and creatinine returned back to normal. She was treated with IV Rocephin for acute pyonephritis she remained afebrile for around 24 hours. Urine culture revealed Proteus mirabilis. Blood culture showed no growth in 48 hours. Patient discharged home in a stable medical condition, discharged on Levaquin 750 mg p.o. daily for 7 days, continued on her home medication without any changes, plan to follow-up with urology this coming week, follow-up with PCP in 1 week. Discharge Activity: Return to Normal Activity Weight Bearing Status: Weight bearing as tolerated Call your doctor if you observe: Fever of 101 or Higher, Shortness of breath, Dizziness, Fainting spells, Chest pain, Increased palpitations (irregular heartbeat), Uncontrolled pain Home Medications: Medications to take at Discharge Calcium Carbonate/Vitamin D3 [Calcium 600-Vit D3 200 Tablet] 1 each PO DAILY 04/02/18 Cholecalciferol (Vitamin D3) [Vitamin D3] 100,000 unit PO FR 04/02/18 Cyclobenzaprine [Flexeril] 10 mg PO QHS 04/02/18 Gabapentin [Neurontin] 300 mg PO BID 04/02/18 Hydrocodone/Acetaminophen [[place] 5-325 Tablet] 1 each PO BID 04/02/18 Lisinopril [Prinivil] 10 mg PO QHS 04/02/18 Omeprazole [Prilosec] 40 mg PO DAILY 04/02/18 Potassium Citrate [Potassium Citrate ER] 10 mg PO BID 04/02/18 Levofloxacin [Levaquin] 750 mg PO DAILY #7 tab 04/05/18 Following Prescrptions Were Given to Patient: Levofloxacin [Levaquin] 750 mg PO DAILY #7 tab Primary Care Physician: Antonio Mackey MD [Primary Care Provider] - Please follow up with your Primary Care Physician in: 1 week. Please Follow Up With: Naeem Perrin MD When: please call his office. Disposition: Home Minutes spent on discharge:: 32 Patient Condition:: Stable Medical Necessity - Tobacco Use Smoking Status: Current every day smoker Tobacco Use: Cigarettes Meaningful Use Info Meaningful Use Diagnoses (Choose all that apply): None applicable Code Visit Inpatient E&M: 09876 Disch Hosp
[2018-04-05] MEDS: Pantoprazole Sodium 40 MG Tablet PO (10:44)
[2018-04-05] MEDS: HYDROcodone Bitartrate/Apap 5/325 Tablet PO (10:47)
--- NOTE | 2018-04-05 13:06 | PCM.PN.BLA ---
Progress Note patient seen today R nephrostomy tube in place and urine clear follow up with my office after discharge
--- NOTE | 2018-04-07 15:28 | CASEMGMT ---
АЛЕКСАНДР ROSE Discharge Follow-up Phone Call: ARONLexii: Kevin Strata: 4 Call Date: 04/07/18 Discharge Date: 04/05/18 Time of Call: 1525 Duration: 3 min Admitting Diagnosis: UTI, intractable right flank pain АЛЕКСАНДР ROSE completed follow-up phone call after recent hospitalization. Patient states that she his doing so so. She was able to fill prescriptions without any problem. Patient had no questions regarding discharge instructions or medications. Patient states that she has a follow-up appt with Dr. Perrin next . Patient stated that she has the best care on [facility].
== END 2018-04-05 16:48 | disposition home or self-care (01) | DRG 690 ==
LOC: ED 22:44 → MS3 04-03 01:03
PROVIDERS: Radiology Diagnostic Radiology; Admitting Provider Internal Medicine; Emergency Provider Emergency Medicine; Family Provider Family Medicine; PCP Family Medicine; Visit Provider Hospitalist
DX: N10 Acute pyelonephritis (principal); F17.210 Nicotine dependence, cigarettes, uncomplicated; N13.6 Pyonephrosis; Z85.51 Personal history of malignant neoplasm of bladder; N20.0 Calculus of kidney; K21.9 Gastro-esophageal reflux disease without esophagitis; M54.5 Low back pain; G89.29 Other chronic pain; Z93.6 Other artificial openings of urinary tract status
CPT/HCPCS: 20501; 36415; 74176; 77012; 80048; 81001; 83605; 85025; 85027; 85610; 85730; 87040; 87077; 87086; 87088; 87186; 99156; 99284; 99406; J7030; A4216; J0696; J2405

== ENCOUNTER 2018-06-02 05:48 | Day surgery (SDC) | payer MEDICARE, SELFPAY ==
[2018-06-02] VITALS (7 sets, daily range): BP systolic 123–154; BP diastolic 72–80; PULSE 63–73; RESP 16–18; TEMP 36.2–36.6; O2SAT 97–100; BMI 27.6
[2018-06-02] MEDS: Cefazolin 2 GM in 0.9% Normal Saline 100 ML IV (07:49)
[2018-06-02] MEDS: Lubricating Jelly 60 GM Tube 30 GM TOPICAL (07:57)
--- NOTE | 2018-06-02 08:01 | PCM.OPRPT ---
Report of Operation Date of Procedure: 06/02/18 Pre-Operative Diagnosis: Status post placement of antegrade stent patient has a neobladder Post-Operative Diagnosis: Same Surgery/Procedure Performed:: Cystoscopy through an established ileal conduit and extraction of the stent. 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 She presents today for extraction of the stent. 68-year-old female taken back to the operating room after induction of MAC local we took dressings off the conduit remove the catheter prepped it with soapy water and then went into the conduit with a 21 M[place]ese rigid cystourethroscope was able to navigate through the conduit down to the neobladder and then found the coiled existing stent grabbed the coil with a grasper and gently extracted it from the neobladder. We then put a 20 Maltese catheter back into the neobladder put it to gravity drainage patient's anesthetic was reversed taken back to PACU good condition plan to see her back in 6 weeks for checkup and ultrasound of her kidney. Type of Anesthesia:: General Drains: 20 fr - Admit VTE Documentation VTE Present on Admission: No VTE Mechan Device Prophylaxis: SCD's
--- NOTE | 2018-06-02 08:04 | PCM.DC.URO ---
Discharge Diet: Light diet - advance as tolerated Discharge Activity: Return to Normal Activity, May Not Drive - for 2 days. Additional Activity Instructions:: f you have a catheter, remove on ___. If you have any problems after catheter is removed, call [phone] and ask for your doctor to be paged. Please be aware that pain medications may cause nausea. You should typically eat light foods as you take your pain medication. Pain medication may cause constipation, if this is a problem for you, please discuss with your doctor. Allergies/Adverse Reactions: Allergies Iodinated Contrast- Oral and IV Dye [Iodinated Contrast Media - IV Dye] Allergy (Verified 05/26/18 09:30) started having [place] Penicillins Allergy (Verified 05/26/18 09:30) Rash Sulfa (Sulfonamide Antibiotics) Allergy (Verified 05/26/18 09:30) Rash amlodipine Adverse Reaction (Verified 05/26/18 09:30) nausea, htn, headaches ciprofloxacin [From Cipro] Adverse Reaction (Verified 05/26/18 09:30) stomach problems ciprofloxacin HCl [From Cipro] Adverse Reaction (Verified 05/26/18 09:30) stomach problems hydromorphone HCl [From Dilaudid] Adverse Reaction (Verified 05/26/18 09:30) headache nitrofurantoin [From Macrobid] Adverse Reaction (Verified 05/26/18 09:30) doesn't work nitrofurantoin macrocrystalline [From Macrobid] Adverse Reaction (Verified 05/26/18 09:30) doesn't work pramipexole Adverse Reaction (Verified 05/26/18 09:30) stomach problems sucralfate Adverse Reaction (Verified 05/26/18 09:30) can't swallow Medications to take at Discharge Calcium Carbonate/Vitamin D3 [Calcium 600-Vit D3 200 Tablet] 1 each PO DAILY 04/02/18 Cholecalciferol (Vitamin D3) [Vitamin D3] 100,000 unit PO FR 04/02/18 Cyclobenzaprine [Flexeril] 10 mg PO QHS 04/02/18 Gabapentin [Neurontin] 300 mg PO BID 04/02/18 Hydrocodone/Acetaminophen [[place] 5-325 Tablet] 1 each PO BID 04/02/18 Lisinopril [Prinivil] 10 mg PO QHS 04/02/18 Omeprazole [Prilosec] 40 mg PO DAILY 04/02/18 Potassium Citrate [Potassium Citrate ER] 10 mg PO BID 04/02/18 Primary Care Physician: Antonio Mackey MD [Primary Care Provider] - Test Results: Test results from this visit will be discussed in further detail at your follow-up appointment, if applicable. Please Follow Up With: Naeem Perrin MD When: in 6 weeks, please call to make an appointment.
== END 2018-06-02 09:04 | disposition home or self-care (01) ==
LOC: SDC 05:48 → AC 05:49
PROVIDERS: Family Provider Family Medicine; PCP Family Medicine; Visit Provider Urology
PROC: (CPT 52310; principal; 2018-06-02 07:20)
DX: N13.1 Hydronephrosis with ureteral stricture, not elsewhere classified (principal); Z96.0 Presence of urogenital implants; Z85.51 Personal history of malignant neoplasm of bladder; Z93.6 Other artificial openings of urinary tract status; Z87.442 Personal history of urinary calculi; Z90.6 Acquired absence of other parts of urinary tract; K21.9 Gastro-esophageal reflux disease without esophagitis; I10 Essential (primary) hypertension; M19.90 Unspecified osteoarthritis, unspecified site; F17.200 Nicotine dependence, unspecified, uncomplicated; Z79.899 Other long term (current) drug therapy
CPT/HCPCS: 00862; 50961; J7120; J2405

== ENCOUNTER → 2018-06-13 14:35 | Outpatient (CLI) | payer MEDICARE, SELFPAY ==
[2018-06-13 15:15] LABS: Amphetamine Urine VISTA NEGATIVE (<1000 ng/mL); Barbiturate Urine VISTA NEGATIVE (< 200 ng/mL); Benzodiazepine Urine VISTA NEGATIVE (< 200 ng/mL); Cocaine Urine VISTA NEGATIVE (< 300 ng/mL); Ecstacy Urine VISTA NEGATIVE (< 500 ng/mL); Methadone Urine VISTA NEGATIVE (< 300 ng/mL); PCP Urine VISTA NEGATIVE (< 25 ng/mL); THC Urine VISTA NEGATIVE (< 50 ng/mL); Vista UDS pH Range 7
== END ==
PROVIDERS: Family Provider Family Medicine; PCP Family Medicine; Visit Provider Anesthesiology Pain Medicine
DX: F11.20 Opioid dependence, uncomplicated (principal)
CPT/HCPCS: 80307

== ENCOUNTER 2018-07-05 10:29 | Outpatient (RCR) | payer MEDICARE, SELFPAY ==
[2018-07-05 11:05] VITALS: BP 141/74; PULSE 69; RESP 18; TEMP 36.6
--- NOTE | 2018-07-05 12:21 | PCM.WC.HP ---
(1) Abdominal wall ulcer Status: Chronic Current Visit: Yes Code(s): L98.499 - Non-pressure chronic ulcer of skin of other sites with unspecified severity (2) Suprapubic catheter Status: Chronic Current Visit: No Code(s): Z93.59 - Other cystostomy status History of Present Illness Chief Complaint: Verna (Abdominal ) Stoma Ulcer History of Wound: Ms. 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 She also has a history of Bladder Ca (20 years ago )s/p Surgery and a permanent Suprapubic Catheter. She has been seen here in the past for her chronic Stoma site ulcer. She has had no significant change in stoma ulcer over the years and continues to do a twice daily dressing with Aquacel. She is here for her biannual check up and refill on supplies. She has no concerns at this time. Past Medical History Past Medical History: Chronic Problems Suprapubic catheter (Chronic) Abdominal wall ulcer (Chronic) History of tobacco use (Chronic) History of bladder cancer (Chronic) History of kidney stones (Chronic) GERD (gastroesophageal reflux disease) (Chronic) Chronic low back pain (Chronic) Surgical History: cholecystectomy, herniorrhaphy, - - Removal of bladder with reconstruction. The surgery was 20 years ago. Allergies/Adverse Reactions: Allergies Iodinated Contrast- Oral and IV Dye [Iodinated Contrast Media - IV Dye] Allergy (Verified 05/26/18 09:30) started having [place] Penicillins Allergy (Verified 05/26/18 09:30) Rash Sulfa (Sulfonamide Antibiotics) Allergy (Verified 05/26/18 09:30) Rash amlodipine Adverse Reaction (Verified 05/26/18 09:30) nausea, htn, headaches ciprofloxacin [From Cipro] Adverse Reaction (Verified 05/26/18 09:30) stomach problems ciprofloxacin HCl [From Cipro] Adverse Reaction (Verified 05/26/18 09:30) stomach problems hydromorphone HCl [From Dilaudid] Adverse Reaction (Verified 05/26/18 09:30) headache nitrofurantoin [From Macrobid] Adverse Reaction (Verified 05/26/18 09:30) doesn't work nitrofurantoin macrocrystalline [From Macrobid] Adverse Reaction (Verified 05/26/18 09:30) doesn't work pramipexole Adverse Reaction (Verified 05/26/18 09:30) stomach problems sucralfate Adverse Reaction (Verified 05/26/18 09:30) can't swallow Home Medications: Ambulatory Orders Medication Instructions Recorded Calcium Carbonate/Vitamin D3 1 each PO DAILY 04/02/18 [Calcium 600-Vit D3 200 Tablet] Cholecalciferol (Vitamin D3) 100,000 unit PO FR 04/02/18 [Vitamin D3] Cyclobenzaprine [Flexeril] 10 mg PO QHS 04/02/18 Gabapentin [Neurontin] 300 mg PO BID 04/02/18 Hydrocodone/Acetaminophen [[place] 1 each PO BID 04/02/18 5-325 Tablet] Lisinopril [Prinivil] 10 mg PO QHS 04/02/18 Omeprazole [Prilosec] 40 mg PO DAILY 04/02/18 Potassium Citrate [Potassium 10 mg PO BID 04/02/18 Citrate ER] - Family History Maternal No pertinent history Smoking Status: Current every day smoker Review of Systems Constitutional: Denies: Anorexia, Chills, Fever Eyes: Denies: Blurred vision, Pain, Redness HEENT: Denies: Difficulty Hearing, Difficulty Swallowing Cardiovascular: Denies: Chest Pain, Chest Tightness Respiratory: Denies: Hemoptysis Gastrointestinal: Denies: Abdominal Pain, Hematemesis, Vomiting Skin: Denies: Jaundice - Physical Exam Vital Signs Temp Pulse Resp BP 98 F 69 18 141/74 H 07/05/18 11:05 07/05/18 11:05 07/05/18 11:05 07/05/18 11:05 General: Alert, Oriented x3, Cooperative, No apparent distress HEENT: Atraumatic Oral: Moist Mucosa Neck: Supple Lungs: Normal air movement Abdomen: Soft, Non Tender Extremities: No cyanosis Skin: Ulcer/ Wound Wound Measurements and Assessment WC - Nurse 1 - General Ulcer Measurement Start: 07/05/18 11:05 Freq: Status: Active Protocol: Activity Type Activity Date Activity User E-Sign Co-Sign Detail Recorded Client Recorded Date Recorded By Document 07/05/18 11:05 DL [id number] 07/05/18 11:12 DL 07/05/18 11:05 Wound Center Nurse 1 [Ulcer Assessment] #2- SUPRAPUBIC CATH SITE -Current Size (cm) - Length 1.6 -Current Size (cm) - Width 1.6 -Current Size (cm) - Depth 0.1 -Total Square Cm 2.56 -Photo Taken Yes -Exudate Amt Small (1-33%) -Exudate Type Serosanguineous -Wound Margin Distinct, Outline Attached -Granulation Amt Large (67-100%) -Granulation Quality Red -Necrosis Amt None Present (0 %) -Structure Exposed N/A -Texture (Verna-wound Skin Appearance) No Abnormality Scarring -Moisture (Verna-wound Skin Appearance No Abnormality ) -Color (Verna-wound Skin Appearance) No Abnormality -Temperature (Verna-wound Skin No Abnormality Appearance) (Pt Warm) -Ulcer Cleansing Rinsed/ Irrigated with Saline -Foul Odor after Cleansing No -Anesthetic Used 4% Lidocaine Solution - Nurse 2 - General Ulcer CM Notes Start: 07/05/18 11:05 Freq: Status: Active Protocol: Activity Type Activity Date Activity User E-Sign Co-Sign Detail Recorded Client Recorded Date Recorded By Document 07/05/18 11:26 MW [id number] 07/05/18 11:28 MW 07/05/18 11:26 Wound Center Nurse 2 [Procedure/Treatment] -Time 11:26 -Correct Patient Yes -Correct Side, Site, Position Yes -Correct Procedure No -Procedure Performed No -Post Debridement Size (cm) - Length 1.6 -Post Debridement Size (cm) - Width 1.6 -Post Debridement Size (cm) - Depth 0.1 -Total Square Cm 2.56 -Wound/Ulcer Outcome Not Healed -Ulcer Cleansing Rinsed/ Irrigated with Saline -Foul Odor after Cleansing No -Bioengineered Tissue No -Bleeding Controlled with NA -Treatment Response Procedure Tolerated Well [See Physician Procedure note for Specifics] Pain Scale: 0-10 Numeric [Pain] -Is Patient Pain Free? Yes Musculoskeletal: No Muscle Wasting Neurological: Cranial nerves II-XII grossly intact Psych/Mental Status: Normal Affect Debridement Note Post-Debridement Measurements/Treatment - Nurse 2 - General Ulcer CM Notes Start: 07/05/18 11:05 Freq: Status: Active Protocol: Activity Type Activity Date Activity User E-Sign Co-Sign Detail Recorded Client Recorded Date Recorded By Document 07/05/18 11:26 MW [id number] 07/05/18 11:28 MW 07/05/18 11:26 Wound Center Nurse 2 #2- SUPRAPUBIC CATH SITE -Time 11:26 -Correct Patient Yes -Correct Side, Site, Position Yes -Correct Procedure No -Procedure Performed No -Post Debridement Size (cm) - Length 1.6 -Post Debridement Size (cm) - Width 1.6 -Post Debridement Size (cm) - Depth 0.1 -Total Square Cm 2.56 -Wound/Ulcer Outcome Not Healed -Ulcer Cleansing Rinsed/ Irrigated with Saline -Foul Odor after Cleansing No -Bioengineered Tissue No -Bleeding Controlled with NA -Treatment Response Procedure Tolerated Well Pain Scale: 0-10 Numeric Is Patient Pain Free? Yes No debridement was completed today Assessment/Plan Active Problems Abdominal wall ulcer (Chronic) Assessment: Chronic ulcer of stoma. Remote history of bladder cancer. Nicotine dependence. Plan: Ms. Crawford is here for biannual follow-up. There has been no new changes. Ulcer has remained stable. Continue Aquacel twice daily to the area. Maintain good hygeine and continue increased protein intake. Also has remained stable over the years and so I believe she can continue follow-up with her primary care physician for her supplies. She was advised to call with any further questions or concerns but at this time, I believe it is okay to discharge her from the wound clinic. This note was generated with [employer] dictation software. It may contain incorrect words, spelling, and punctuation that were not noted in checking the note before signing.
--- NOTE | 2018-07-05 12:25 | HP.PCM_ITS ---
(1) Abdominal wall ulcer Status: Chronic Current Visit: Yes Code(s): L98.499 - Non-pressure chronic ulcer of skin of other sites with unspecified severity (2) Suprapubic catheter Status: Chronic Current Visit: No Code(s): Z93.59 - Other cystostomy status History of Present Illness Chief Complaint: Verna (Abdominal ) Stoma Ulcer History of Wound: Ms. 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 She also has a history of Bladder Ca (20 years ago )s/p Surgery and a permanent Suprapubic Catheter. She has been seen here in the past for her chronic Stoma site ulcer. She has had no significant change in stoma ulcer over the years and continues to do a twice daily dressing with Aquacel. She is here for her biannual check up and refill on supplies. She has no concerns at this time. Past Medical History Past Medical History: Chronic Problems Suprapubic catheter (Chronic) Abdominal wall ulcer (Chronic) History of tobacco use (Chronic) History of bladder cancer (Chronic) History of kidney stones (Chronic) GERD (gastroesophageal reflux disease) (Chronic) Chronic low back pain (Chronic) Surgical History: cholecystectomy, herniorrhaphy, - - Removal of bladder with reconstruction. The surgery was 20 years ago. Allergies/Adverse Reactions: Allergies Iodinated Contrast- Oral and IV Dye [Iodinated Contrast Media - IV Dye] Allergy (Verified 05/26/18 09:30) started having [place] Penicillins Allergy (Verified 05/26/18 09:30) Rash Sulfa (Sulfonamide Antibiotics) Allergy (Verified 05/26/18 09:30) Rash amlodipine Adverse Reaction (Verified 05/26/18 09:30) nausea, htn, headaches ciprofloxacin [From Cipro] Adverse Reaction (Verified 05/26/18 09:30) stomach problems ciprofloxacin HCl [From Cipro] Adverse Reaction (Verified 05/26/18 09:30) stomach problems hydromorphone HCl [From Dilaudid] Adverse Reaction (Verified 05/26/18 09:30) headache nitrofurantoin [From Macrobid] Adverse Reaction (Verified 05/26/18 09:30) doesn't work nitrofurantoin macrocrystalline [From Macrobid] Adverse Reaction (Verified 05/26/18 09:30) doesn't work pramipexole Adverse Reaction (Verified 05/26/18 09:30) stomach problems sucralfate Adverse Reaction (Verified 05/26/18 09:30) can't swallow Home Medications: Ambulatory Orders Medication Instructions Recorded Calcium Carbonate/Vitamin D3 1 each PO DAILY 04/02/18 [Calcium 600-Vit D3 200 Tablet] Cholecalciferol (Vitamin D3) 100,000 unit PO FR 04/02/18 [Vitamin D3] Cyclobenzaprine [Flexeril] 10 mg PO QHS 04/02/18 Gabapentin [Neurontin] 300 mg PO BID 04/02/18 Hydrocodone/Acetaminophen [[place] 1 each PO BID 04/02/18 5-325 Tablet] Lisinopril [Prinivil] 10 mg PO QHS 04/02/18 Omeprazole [Prilosec] 40 mg PO DAILY 04/02/18 Potassium Citrate [Potassium 10 mg PO BID 04/02/18 Citrate ER] - Family History Maternal No pertinent history Smoking Status: Current every day smoker Review of Systems Constitutional: Denies: Anorexia, Chills, Fever Eyes: Denies: Blurred vision, Pain, Redness HEENT: Denies: Difficulty Hearing, Difficulty Swallowing Cardiovascular: Denies: Chest Pain, Chest Tightness Respiratory: Denies: Hemoptysis Gastrointestinal: Denies: Abdominal Pain, Hematemesis, Vomiting Skin: Denies: Jaundice - Physical Exam Vital Signs Temp Pulse Resp BP 98 F 69 18 141/74 H 07/05/18 11:05 07/05/18 11:05 07/05/18 11:05 07/05/18 11:05 General: Alert, Oriented x3, Cooperative, No apparent distress HEENT: Atraumatic Oral: Moist Mucosa Neck: Supple Lungs: Normal air movement Abdomen: Soft, Non Tender Extremities: No cyanosis Skin: Ulcer/ Wound Wound Measurements and Assessment WC - Nurse 1 - General Ulcer Measurement Start: 07/05/18 11:05 Freq: Status: Active Protocol: Activity Type Activity Date Activity User E-Sign Co-Sign Detail Recorded Client Recorded Date Recorded By Document 07/05/18 11:05 DL [id number] 07/05/18 11:12 DL 07/05/18 11:05 Wound Center Nurse 1 [Ulcer Assessment] #2- SUPRAPUBIC CATH SITE -Current Size (cm) - Length 1.6 -Current Size (cm) - Width 1.6 -Current Size (cm) - Depth 0.1 -Total Square Cm 2.56 -Photo Taken Yes -Exudate Amt Small (1-33%) -Exudate Type Serosanguineous -Wound Margin Distinct, Outline Attached -Granulation Amt Large (67-100%) -Granulation Quality Red -Necrosis Amt None Present (0 %) -Structure Exposed N/A -Texture (Verna-wound Skin Appearance) No Abnormality Scarring -Moisture (Verna-wound Skin Appearance No Abnormality ) -Color (Verna-wound Skin Appearance) No Abnormality -Temperature (Verna-wound Skin No Abnormality Appearance) (Pt Warm) -Ulcer Cleansing Rinsed/ Irrigated with Saline -Foul Odor after Cleansing No -Anesthetic Used 4% Lidocaine Solution - Nurse 2 - General Ulcer CM Notes Start: 07/05/18 11:05 Freq: Status: Active Protocol: Activity Type Activity Date Activity User E-Sign Co-Sign Detail Recorded Client Recorded Date Recorded By Document 07/05/18 11:26 MW [id number] 07/05/18 11:28 MW 07/05/18 11:26 Wound Center Nurse 2 [Procedure/Treatment] -Time 11:26 -Correct Patient Yes -Correct Side, Site, Position Yes -Correct Procedure No -Procedure Performed No -Post Debridement Size (cm) - Length 1.6 -Post Debridement Size (cm) - Width 1.6 -Post Debridement Size (cm) - Depth 0.1 -Total Square Cm 2.56 -Wound/Ulcer Outcome Not Healed -Ulcer Cleansing Rinsed/ Irrigated with Saline -Foul Odor after Cleansing No -Bioengineered Tissue No -Bleeding Controlled with NA -Treatment Response Procedure Tolerated Well [See Physician Procedure note for Specifics] Pain Scale: 0-10 Numeric [Pain] -Is Patient Pain Free? Yes Musculoskeletal: No Muscle Wasting Neurological: Cranial nerves II-XII grossly intact Psych/Mental Status: Normal Affect Debridement Note Post-Debridement Measurements/Treatment - Nurse 2 - General Ulcer CM Notes Start: 07/05/18 11:05 Freq: Status: Active Protocol: Activity Type Activity Date Activity User E-Sign Co-Sign Detail Recorded Client Recorded Date Recorded By Document 07/05/18 11:26 MW [id number] 07/05/18 11:28 MW 07/05/18 11:26 Wound Center Nurse 2 #2- SUPRAPUBIC CATH SITE -Time 11:26 -Correct Patient Yes -Correct Side, Site, Position Yes -Correct Procedure No -Procedure Performed No -Post Debridement Size (cm) - Length 1.6 -Post Debridement Size (cm) - Width 1.6 -Post Debridement Size (cm) - Depth 0.1 -Total Square Cm 2.56 -Wound/Ulcer Outcome Not Healed -Ulcer Cleansing Rinsed/ Irrigated with Saline -Foul Odor after Cleansing No -Bioengineered Tissue No -Bleeding Controlled with NA -Treatment Response Procedure Tolerated Well Pain Scale: 0-10 Numeric Is Patient Pain Free? Yes No debridement was completed today Assessment/Plan Active Problems Abdominal wall ulcer (Chronic) Assessment: Chronic ulcer of stoma. Remote history of bladder cancer. Nicotine dependence. Plan: Ms. Crawford is here for biannual follow-up. There has been no new changes. Ulcer has remained stable. Continue Aquacel twice daily to the area. Maintain good hygeine and continue increased protein intake. Also has remained stable over the years and so I believe she can continue follow-up with her primary care physician for her supplies. She was advised to call with any further questions or concerns but at this time, I believe it is okay to discharge her from the wound clinic. This note was generated with [employer] dictation software. It may contain incorrect words, spelling, and punctuation that were not noted in checking the note before signing.
== END 2018-07-09 23:59 ==
LOC: WC 10:29
PROVIDERS: Family Provider Family Medicine; PCP Family Medicine; Visit Provider Internal Medicine
DX: L98.499 Non-pressure chronic ulcer of skin of other sites with unspecified severity (principal); Z85.51 Personal history of malignant neoplasm of bladder; Z93.59 Other cystostomy status; K21.9 Gastro-esophageal reflux disease without esophagitis; Z79.899 Other long term (current) drug therapy; G89.29 Other chronic pain; M54.5 Low back pain; F17.200 Nicotine dependence, unspecified, uncomplicated
CPT/HCPCS: 99213; G0463

== ENCOUNTER → 2018-07-10 13:28 | Outpatient (CLI) | payer MEDICARE, SELFPAY ==
[2018-07-10 15:21] LABS: Anion Gap 6 (5-15); BUN 18 mg/dL (7-18); BUN/Creat Ratio 16.8 RATIO (10-20); Calcium,Total 9.1 mg/dL (8.5-10.1); Chloride 109 mmol/L (98-107); Creatinine, Serum 1.07 mg/dL (0.55-1.02); EST Glomerular Filtration Rate 54 mL/min (>60); Est Glom Filt Rate - Afr Amer 66 mL/min (>60); Glucose 84 mg/dL (74-106); Potassium 4.1 mmol/L (3.5-5.1); Sodium Level 141 mmol/L (136-145)
== END ==
PROVIDERS: Family Provider Family Medicine; PCP Family Medicine; Referring Provider Urology; Visit Provider Urology
DX: N28.9 Disorder of kidney and ureter, unspecified (principal)
CPT/HCPCS: 36415; 80048

== ENCOUNTER → 2018-07-11 13:35 | Outpatient (CLI) | payer MEDICARE, SELFPAY ==
[2018-07-11 15:57] LABS: Absolute Lymphocyte Count 1.93 X10^3/ul (0.83-4.51); Absolute Neutrophil Count 4.7 X10^3/uL (2.0-7.7); Basophil# 0.02 X10^3/uL; Basophil% 0.3 % (0-1); Eosinophil# 0.13 X10^3/uL; Eosinophils% 1.8 % (0-5); Hematocrit 41.7 % (37-47); Hemoglobin 13.2 g/dl (12.0-15.0); Lymphocyte # 1.93 X10^3/ul (4.0); Lymphocyte % 27.1 % (19-41); Mean Corp Hgb Conc 31.7 g/gl (32-36); Mean Corpuscular Hgb 28.3 pg (27.0-32.0); Mean Corpuscular Volume 89.5 fL (81-99); Mean Platelet Vol. 9.5 fl (6.2-12.0); Monocyte# 0.37 X10^3/uL; Monocyte% 5.2 % (0-10); Neutrophil # 4.68 X10^3/uL (2.7-7.7); Neutrophil % 65.6 % (47-70); Platelet Count 252 K/mm3 (150-450); RBC Distribution Width CV 14.1 % (11.6-14.6); RBC Distribution Width SD 45.9 fl (35.1-43.9); Red Blood Count 4.66 M/mm3 (4.2-5.4); White Blood Count 7.1 K/mm3 (4.4-11.0)
[2018-07-11 16:01] LABS: POSITIVE COUNT NO; POSITIVE DIFFERENTIAL NO; POSITIVE MORPHOLOGY NO
[2018-07-11 16:23] LABS: AST(SGOT) 15 U/L (15-37); Alanine Aminotransfer ALT/SGPT 19 U/L (13-56); Albumin, Serum 3.6 g/dL (3.2-5.0); Alkaline Phosphatase 94 U/L (45-117); Anion Gap 9 (5-15); BUN 16 mg/dL (7-18); BUN/Creat Ratio 16.5 RATIO (10-20); Calcium,Total 8.9 mg/dL (8.5-10.1); Chloride 109 mmol/L (98-107); Cholesterol 194 mg/dL (200); Creatinine, Serum 0.97 mg/dL (0.55-1.02); EST Glomerular Filtration Rate 61 mL/min (>60); Est Glom Filt Rate - Afr Amer 73 mL/min (>60); Globulin 3.7 g/dL (2.2-4.2); Glucose 86 mg/dL (74-106); High Density Lipoprotein 59 mg/dL; Potassium 4.1 mmol/L (3.5-5.1); Protein, Total 7.3 g/dL (6.4-8.2); Sodium Level 143 mmol/L (136-145); Thyroid Stim Hormone (TSH) 0.81 uIU/mL (0.358-3.74); Triglycerides 79 mg/dL; Very Low Density Lipoprotein 16 mg/dL (5-40)
[2018-07-12 09:16] LABS: Vitamin B12 284 pg/mL (211-911); Vitamin D,25 Hydroxy 17.8 ng/mL (29.95-100.01)
== END ==
PROVIDERS: Family Provider Family Medicine; PCP Family Medicine; Visit Provider Family Medicine
DX: I10 Essential (primary) hypertension (principal); E78.5 Hyperlipidemia, unspecified; E55.9 Vitamin D deficiency, unspecified; R53.83 Other fatigue
CPT/HCPCS: 36415; 80053; 80061; 82306; 82607; 84443; 85025

== ENCOUNTER 2018-10-13 18:28 | Emergency (ER) | payer MEDICARE, SELFPAY ==
[2018-10-13 18:28] VITALS: BP 170/71; PULSE 71; RESP 21; O2SAT 97
[2018-10-13 18:29] VITALS: BP 137/95; PULSE 72; RESP 18; TEMP 36.9; O2SAT 97; BMI 26.5
[2018-10-13 20:10] LABS: Absolute Lymphocyte Count 1.09 X10^3/ul (0.83-4.51); Absolute Neutrophil Count 9.6 X10^3/uL (2.0-7.7); Basophil# 0.03 X10^3/uL; Basophil% 0.3 % (0-1); Eosinophil# 0.09 X10^3/uL; Eosinophils% 0.8 % (0-5); Hematocrit 41.8 % (37-47); Hemoglobin 13.6 g/dl (12.0-15.0); Lymphocyte # 1.09 X10^3/ul (4.0); Lymphocyte % 9.6 % (19-41); Mean Corp Hgb Conc 32.5 g/gl (32-36); Mean Corpuscular Hgb 28.8 pg (27.0-32.0); Mean Corpuscular Volume 88.6 fL (81-99); Mean Platelet Vol. 8.8 fl (6.2-12.0); Monocyte# 0.57 X10^3/uL; Neutrophil # 9.59 X10^3/uL (2.7-7.7); Neutrophil % 84.1 % (47-70); Platelet Count 292 K/mm3 (150-450); RBC Distribution Width CV 13.9 % (11.6-14.6); RBC Distribution Width SD 44.9 fl (35.1-43.9); Red Blood Count 4.72 M/mm3 (4.2-5.4); White Blood Count 11.4 K/mm3 (4.4-11.0)
[2018-10-13 20:14] LABS: Anion Gap 10 (5-15); BUN 23 mg/dL (7-18); BUN/Creat Ratio 21.3 RATIO (10-20); Calcium,Total 9.3 mg/dL (8.5-10.1); Chloride 105 mmol/L (98-107); Creatinine, Serum 1.08 mg/dL (0.55-1.02); EST Glomerular Filtration Rate 54 mL/min (>60); Est Glom Filt Rate - Afr Amer 65 mL/min (>60); Estimated Creatinine Clearance 41.81 ml/min; Glucose 106 mg/dL (74-106); POSITIVE COUNT NO; POSITIVE DIFFERENTIAL NO; POSITIVE MORPHOLOGY NO; Potassium 4.3 mmol/L (3.5-5.1); Sodium Level 139 mmol/L (136-145)
--- NOTE | 2018-10-13 20:21 | CT_ITS ---
STUDY: CT ABDOMEN AND PELVIS WITHOUT CONTRAST REASON FOR EXAM: Female, 68 years old. Abdominal pain. Dysuria bladder cancer kidney stones angle hernia. RADIATION DOSAGE (If Supplied By Facility): CTDIvol = ( 11.23 ) mGy, DLP = ( 597.94 ) mGycm TECHNIQUE: Transaxial images were obtained from the dome of the diaphragm to the symphysis pubis without oral contrast, and without intravenous contrast. Sagittal and coronal images were reconstructed. Individualized dose optimization techniques were used for this CT. COMPARISON: 04/02/2018. FINDINGS: There is a 7 mm subpleural nodule in the right lower lobe on series 2 image 10. There is a 6 mm nodule in the lingula on image 18. Visualized heart is normal. The liver is unremarkable. The gallbladder is unremarkable. The spleen and pancreas are unremarkable. There is a 2.3 x 2.3 cm left adrenal nodule. CT density measures -7 Hounsfield units. This is consistent with a benign adenoma. There is no change compared to the prior study. The right adrenal gland is normal. The kidneys are unremarkable. No stones or hydronephrosis. The ureters are normal in caliber. No evidence of ureteral stone. The patient is status post cystectomy. Ileal conduit is identified, which extends into a ventral abdominal wall hernia. The ileal conduit is drained via a percutaneous catheter entering the right anterior pelvic abdominal wall. No significant change compared to the prior study. Multiple bowel loops herniate through the right anterior pelvic wall defect. There is no evidence of obstruction at this site. There are several loops of small bowel at the upper limit of normal in the midline anterior pelvis seen on series 2 images 96 through 105. There is mild wall thickening and stranding. There is question of focal ileitis or low-grade partial obstruction, possibly related to adhesions. The aorta is normal in caliber. There is no free fluid, free air, or organized collection. Normal osseous structures. CT/Abdomen/Pelvis without Cont IMPRESSION: 1. Mild wall thickening and stranding about midline pelvic small bowel loops. Question focal ileitis or adhesions with low-grade partial obstruction. 2. Ileal conduit extending into anterior pelvic wall hernia with percutaneous drainage catheter, unchanged from the prior study. 3. Herniation of multiple small bowel loops into the right pelvic wall defect, unchanged. 4. Stable left adrenal adenoma. Electronically Signed: Rosangela Hensley MD at 21:51 EST Tel , Service support ,
[2018-10-13 20:24] LABS: Mucous, Urine 0 SEEN /hpf (<or=2+)
[2018-10-13 20:28] VITALS: BP 166/76; PULSE 74; RESP 19; O2SAT 97
[2018-10-13 20:28] LABS: Color, Urine Yellow (Yellow); Glucose, Dipstick Normal (Normal); Ketone-Dipstick Negative (Negative); Leukocyte Esterase-Dipstick 500 /ul (Negative); Nitrite-Dipstick Positive (Negative); Occult Blood-Urine 25 /ul (Negative); Protein-Dipstick 30 mg/dl (Negative); Urine Bilirubin Dipstick Negative (Negative); Urine Clarity Sl Cloudy (Clear); Urine Urobilinogen Normal (Normal)
[2018-10-13 20:33] LABS: Amorphous Sediment 1+ PHOS; Bacteria 1+ /hpf (None Seen); Red Blood Cells-Urine 0-5 SEEN /hpf (0-5); Squamous Epithelial Cells - UA 0-5 SEEN /hpf (5-10); White Blood Cells 25-50 SEEN /hpf (0-5)
[2018-10-13 20:52] LABS: AST(SGOT) 14 U/L (15-37); Alanine Aminotransfer ALT/SGPT 16 U/L (13-56); Albumin, Serum 3.8 g/dL (3.2-5.0); Alkaline Phosphatase 133 U/L (45-117); Bilirubin, Direct 0.11 mg/dL (0.00-0.30); Lipase 74 U/L (73-393); Protein, Total 7.8 g/dL (6.4-8.2)
[2018-10-13] MEDS: Ondansetron 4 MG/2 ML Vial IV ×2 (21:12→23:54)
[2018-10-13] MEDS: Morphine 4 MG/ML Syringe IV ×2 (21:12→23:55)
[2018-10-13] MEDS: 0.9% Normal Saline 1,000 ML 150 ML IV (21:13)
[2018-10-13 22:00] VITALS: BP 160/70; PULSE 72; RESP 16; O2SAT 93
--- NOTE | 2018-10-13 23:55 | ED.DCSUM_ITS ---
- ER Visit Summary Date of Service: 10/13/18 Chief Complaint: Abdominal pain History of Present Illness: The patient is a 68 F who reports sudden onset of epigastric pain tonight. She did have some nausea and slight vomiting. She states she has had a history of similar attacks in the past but never got an official diagnosis. Patient has had a prior cholecystotomy, hysterotomy, and urostomy secondary to bladder cancer. She did have at least one hernia repair but knows of at least 2 other hernias that she has. It is felt well recently. Physical Examination: Vital signs unremarkable. Patient is lying in bed. She appears uncomfortable but she is in no acute distress. Heart is regular rate and rhythm. Lung sounds are clear. Abdomen is soft with epigastric tenderness. No palpable hernias noted. Urostomy bag is noted in the lower abdomen. Test Results: CBC was a white count 11.4 with 84% neutrophils. Chemistry studies unremarkable. LFTs normal. Urinalysis is positive for nitrites with 25-50 white cells and 1+ bacteria. CT flank shows mild wall thickening and stranding around the midline pelvic small bowel loops. This could represent focal ileitis or adhesions with small bowel low-grade partial obstruction. Ileal conduit is noted. Emergency Department Course and Treatment: Patient was given morphine, Zofran, and IV fluids. On repeat exam test results are discussed. She has no tenderness in the lower abdomen and is been having normal bowel movements. Pain was significantly improved, but is now starting to return. She will be given an additional dose of pain medication. I spoke with Dr. Smith, on-call for surgery. He reviewed her CT scan. He clinically sees no sign of obstruction. If she has symptomatic signs of obstruction he recommended CT with contrast, however patient has allergies to both oral and IV contrast and has no sign of obstruction. Patient states that her urine does not normally test positive for infection in spite of her ileal conduit. She will be covered with antibiotics for this and given pain medication along with nausea meds. Treatment Plan: [] Disposition: Discharge Impression: 1. Cystitis 2. Epigastric pain This note was generated with [employer] software. It may contain incorrect words, spelling, and punctuation that were not noted in review of the chart prior to signing ED Disposition - Plan for ED Patient: Chief Complaint: Abd Pain Referrals: Antonio Mackey MD [Primary Care Provider] -
--- NOTE | 2018-10-13 23:56 | ED.DEP ---
ED Disposition - Plan for ED Patient: Disposition: Home or Assisted Living Chief Complaint: Abd Pain Instructions: ED UTI Cystitis Female, ED Epigastric Pain [facility] Prescriptions: Hydrocodone Bitart/Apap 5-325 [[place] 5MG-325MG] 1 tablet PO Q6H PRN PRN 3 Days #10 tablet PRN Reason: Pain Ondansetron [Zofran Odt] 4 mg PO Q8H PRN PRN #10 tablet PRN Reason: Nausea Cephalexin [Keflex] 500 mg PO Q6 #20 capsule Referrals: Antonio Mackey MD [Primary Care Provider] - 3-5 Days if not improving
--- NOTE | 2018-10-13 23:59 | DCINST.ED_ITS ---
ED Disposition - Plan for ED Patient: Disposition: Home or Assisted Living Chief Complaint: Abd Pain Instructions: ED UTI Cystitis Female, ED Epigastric Pain [facility] Prescriptions: Hydrocodone Bitart/Apap 5-325 [[place] 5MG-325MG] 1 tablet PO Q6H PRN PRN 3 Days #10 tablet PRN Reason: Pain Ondansetron [Zofran Odt] 4 mg PO Q8H PRN PRN #10 tablet PRN Reason: Nausea Cephalexin [Keflex] 500 mg PO Q6 #20 capsule Referrals: Antonio Mackey MD [Primary Care Provider] - 3-5 Days if not improving
[2018-10-14] MEDS: Ondansetron ODT 4 MG Tablet PO (00:14)
[2018-10-14] MEDS: HYDROcodone Bitartrate/Apap 5/325 Tablet PO (00:14)
[2018-10-14] MEDS: Cephalexin 250 MG Capsule 500 MG PO (00:15)
[2018-10-14 00:16] VITALS: BP 172/84; PULSE 78; RESP 16; TEMP 36.6
== END 2018-10-14 00:17 | disposition home or self-care (01) ==
PROVIDERS: Emergency Provider Emergency Medicine; Family Provider Family Medicine; PCP Family Medicine
DX: N30.90 Cystitis, unspecified without hematuria (principal); R10.13 Epigastric pain; I10 Essential (primary) hypertension; K21.9 Gastro-esophageal reflux disease without esophagitis; Z90.49 Acquired absence of other specified parts of digestive tract; Z90.710 Acquired absence of both cervix and uterus; Z87.442 Personal history of urinary calculi; Z85.51 Personal history of malignant neoplasm of bladder; Z79.899 Other long term (current) drug therapy; Z72.0 Tobacco use
CPT/HCPCS: 74176; 80048; 80076; 81001; 83690; 85025; 96361; 96374; 96375; 96376; 99285; J7030; A4216; J2405

== ENCOUNTER → 2018-10-20 13:44 | Outpatient (CLI) | payer MEDICARE, SELFPAY ==
[2018-10-13 18:29] VITALS: BMI 26.5
--- NOTE | 2018-10-20 13:56 | CT_ITS ---
STUDY: CT CHEST WITHOUT CONTRAST REASON FOR EXAM: Female, 68 years old. Lung nodules RADIATION DOSAGE (If Supplied By Facility): CTDIvol = ( 9.24 ) mGy, DLP = ( 314.01 ) mGycm TECHNIQUE: Transaxial imaging was performed without the administration of intravenous contrast material. Multiplanar coronal and sagittal images were reformatted. Individualized dose optimization techniques were used for this CT. COMPARISON: 01/07/2015 CT scan lung bases 4 CT scan abdomen and pelvis. FINDINGS: Within the right lower lobe there is a stable nodule that measures 6.6 mm. There is a stable left lower lobe nodule measuring 7 mm. There is peripheral fibrotic change. There is subtle well-circumscribed nodular densities in the left upper lobe periphery measuring up to 4 mm. There is no demonstrated pleural abnormality. There is coronary calcification within the left anterior descending coronary artery. There is borderline cardiac enlargement. Normal mediastinum. Normal hilar regions. Normal unenhanced pulmonary arteries. There is atherosclerotic calcification of the aortic arch with tortuosity and elongation of the aortic arch and descending thoracic aorta. There are multi-level degenerative changes of the thoracic spine. There is a left adrenal mass measuring 1.4 x 1.3 cm with well-circumscribed borders and Hounsfield units in the range of low or low attenuating this is stable when compared to prior study. CT/Chest without Contrast IMPRESSION: Stable left adrenal adenoma Stable lower lobe nodules compared to a prior CT scan abdomen with lung bases, likely sequelae of old granulomatous disease. Small left upper lobe nodules as detailed above. Recommend continued follow-up in 6-12 months to ensure stability Coronary artery disease. Electronically Signed: Belén Strickland MD at 16:09 EST Tel , Service support ,
== END ==
PROVIDERS: Family Provider Family Medicine; PCP Family Medicine; Referring Provider Family Medicine; Visit Provider Family Medicine
DX: R91.8 Other nonspecific abnormal finding of lung field (principal)
CPT/HCPCS: 71250

== ENCOUNTER → 2018-11-17 13:55 | Outpatient (CLI) | payer MEDICARE, SELFPAY ==
[2018-11-17 14:05] LABS: Bacteria 0 SEEN /hpf (None Seen); Mucous, Urine 0 SEEN /hpf (<or=2+)
[2018-11-17 15:42] LABS: Color, Urine Yellow (Yellow); Glucose, Dipstick Normal (Normal); Ketone-Dipstick Negative (Negative); Leukocyte Esterase-Dipstick 100 /ul (Negative); Nitrite-Dipstick Negative (Negative); Occult Blood-Urine 25 /ul (Negative); Protein-Dipstick 15 mg/dl (Negative); Urine Bilirubin Dipstick Negative (Negative); Urine Clarity Clear (Clear); Urine Urobilinogen Normal (Normal)
[2018-11-17 15:43] LABS: Absolute Lymphocyte Count 1.94 X10^3/ul (0.83-4.51); Absolute Neutrophil Count 6.6 X10^3/uL (2.0-7.7); Basophil# 0.02 X10^3/uL; Basophil% 0.2 % (0-1); Eosinophil# 0.16 X10^3/uL; Eosinophils% 1.7 % (0-5); Lymphocyte # 1.94 X10^3/ul (4.0); Lymphocyte % 20.3 % (19-41); Mean Corp Hgb Conc 31.6 g/gl (32-36); Mean Corpuscular Hgb 28.2 pg (27.0-32.0); Mean Corpuscular Volume 89.2 fL (81-99); Mean Platelet Vol. 9.2 fl (6.2-12.0); Monocyte# 0.79 X10^3/uL; Monocyte% 8.3 % (0-10); Neutrophil % 69.2 % (47-70); Platelet Count 278 K/mm3 (150-450); RBC Distribution Width CV 14.5 % (11.6-14.6); Red Blood Count 4.26 M/mm3 (4.2-5.4); White Blood Count 9.5 K/mm3 (4.4-11.0)
[2018-11-17 15:44] LABS: POSITIVE COUNT NO; POSITIVE DIFFERENTIAL NO; POSITIVE MORPHOLOGY NO
[2018-11-17 15:50] LABS: Red Blood Cells-Urine 0-5 SEEN /hpf (0-5); Squamous Epithelial Cells - UA 0-5 SEEN /hpf (5-10); White Blood Cells 10-25 SEEN /hpf (0-5)
[2018-11-17 16:09] LABS: ALB/GLOB Ratio 0.8 RATIO (0.9-2.4); AST(SGOT) 11 U/L (15-37); Alanine Aminotransfer ALT/SGPT 16 U/L (13-56); Albumin, Serum 3.2 g/dL (3.2-5.0); Alkaline Phosphatase 109 U/L (45-117); Anion Gap 11 (5-15); BUN 20 mg/dL (7-18); BUN/Creat Ratio 19.6 RATIO (10-20); Calcium,Total 8.7 mg/dL (8.5-10.1); Chloride 108 mmol/L (98-107); Cholesterol 188 mg/dL (200); Creatinine, Serum 1.02 mg/dL (0.55-1.02); EST Glomerular Filtration Rate 57 mL/min (>60); Est Glom Filt Rate - Afr Amer 69 mL/min (>60); Globulin 3.8 g/dL (2.2-4.2); Glucose 88 mg/dL (74-106); High Density Lipoprotein 43 mg/dL; Phosphorus 3.9 mg/dL (2.5-4.9); Potassium 4.2 mmol/L (3.5-5.1); Sodium Level 142 mmol/L (136-145); Triglycerides 243 mg/dL; Uric Acid 4.1 mg/dL (2.6-6.0); Very Low Density Lipoprotein 49 mg/dL (5-40)
[2018-11-17 16:22] LABS: Vitamin D,25 Hydroxy 27.8 ng/mL (29.95-100.01)
[2018-11-17 17:21] LABS: PTHIN 88.5 pg/mL (18.4-80.1)
== END ==
PROVIDERS: Family Provider Family Medicine; PCP Family Medicine; Visit Provider Family Medicine
DX: I12.9 Hypertensive chronic kidney disease with stage 1 through stage 4 chronic kidney disease, or unspecified chronic kidney disease (principal); N18.2 Chronic kidney disease, stage 2 (mild); E78.5 Hyperlipidemia, unspecified; E55.9 Vitamin D deficiency, unspecified; M10.9 Gout, unspecified
CPT/HCPCS: 80053; 80061; 81001; 82306; 83970; 84100; 84550; 85025

== ENCOUNTER 2018-12-02 10:54 | Emergency (ER) | payer MEDICARE, SELFPAY ==
[2018-12-02 10:57] VITALS: BP 163/87; PULSE 70; RESP 18; TEMP 36.9; O2SAT 99; BMI 28.2
--- NOTE | 2018-12-02 11:05 | RAD_ITS ---
STUDY: X-RAY - RIGHT HAND REASON FOR EXAM: Female, 68 years old. Right hand pain following injury TECHNIQUE: 3 view(s) of the hand. COMPARISON: None. FINDINGS: Normal radiocarpal articulation. Normal distal radioulnar joint. There is chondrocalcinosis of the TFCC. There is diffuse demineralization of the carpal bones. Normal carpal articulations Normal carpometacarpal articulation of the thumb. Normal second through fifth carpometacarpal joints. There is diffuse osteopenia. Normal metacarpophalangeal joint of the thumb. Normal interphalangeal joint of the thumb. Normal proximal and distal phalanges of the thumb. Normal metacarpophalangeal joints of the second through fifth fingers. Normal proximal and distal interphalangeal joints of the second through fifth fingers. Normal phalanges of the second through fifth fingers. Dorsal hand soft tissue swelling noted. RAD/Hand Min 3 Views IMPRESSION: No fracture demonstrated. Dorsal wrist soft tissue swelling. Electronically Signed: Yamil Felix MD at 11:27 EST , Service support ,
--- NOTE | 2018-12-02 11:06 | ED.VISSUMM ---
- ER Visit Summary Date of Service: 12/02/18 Chief Complaint: Right hand injury History of Present Illness: The patient is a 68 F presents to the emergency department right hand injury patient states that she is noticed some bruising on the dorsum of right hand. She states that it got more painful over the past 2 days. She cannot recall any specific injury. She states that she may have struck it when she was sleeping at night. She is right-hand dominant. She states it hurts to make a fist. She is tried ice and analgesics with little improvement. She does have history of prior wrist fracture in the same extremity. Physical Examination: Exam is relatively unremarkable. Patient does have a large contusion on the dorsum of the left hand. There is no pain with palpation along the tendon sheath. There is no cellulitis. There is no erythema. She does have some pain with making a fist but there is no rotational deformity. Her pulses are normal. The skin is intact. Test Results: [] Emergency Department Course and Treatment: The patient has contusion on the dorsum of the wrist with some soft tissue swelling. Is not erythematous. There is no warmth. It does not appear to be cellulitic. I did obtain plain films which show arthritic changes of the hand and wrist, but no acute fracture. After discussing with the patient, she thinks that she may have hit it 2 nights ago against her bed frame. I do not suspect soft tissue infection. I am going to treat the patient symptomatically with a Velcro wrist splint. I did staff genetic counselor her that if it becomes red, increasingly painful, or hot she needs to return immediately. She is comfortable with this plan of care. Treatment Plan: [] Disposition: Discharge Impression: Right wrist contusion This note was generated with [employer] software. It may contain incorrect words, spelling, and punctuation that were not noted in review of the chart prior to signing ED Disposition - Plan for ED Patient: Instructions: ED Contusion Upper Ext Referrals: Antonio Mackey MD [Primary Care Provider] -
--- NOTE | 2018-12-02 11:09 | ED.DCSUM_ITS ---
- ER Visit Summary Date of Service: 12/02/18 Chief Complaint: Right hand injury History of Present Illness: The patient is a 68 F presents to the emergency department right hand injury patient states that she is noticed some bruising on the dorsum of right hand. She states that it got more painful over the past 2 days. She cannot recall any specific injury. She states that she may have struck it when she was sleeping at night. She is right-hand dominant. She states it hurts to make a fist. She is tried ice and analgesics with little improvement. She does have history of prior wrist fracture in the same extremity. Physical Examination: Exam is relatively unremarkable. Patient does have a large contusion on the dorsum of the left hand. There is no pain with palpation along the tendon sheath. There is no cellulitis. There is no erythema. She does have some pain with making a fist but there is no rotational deformity. Her pulses are normal. The skin is intact. Test Results: [] Emergency Department Course and Treatment: The patient has contusion on the dorsum of the wrist with some soft tissue swelling. Is not erythematous. There is no warmth. It does not appear to be cellulitic. I did obtain plain films which show arthritic changes of the hand and wrist, but no acute fracture. After discussing with the patient, she thinks that she may have hit it 2 nights ago against her bed frame. I do not suspect soft tissue infection. I am going to treat the patient symptomatically with a Velcro wrist splint. I did counseling services director her that if it becomes red, increasingly painful, or hot she needs to return immediately. She is comfortable with this plan of care. Treatment Plan: [] Disposition: Discharge Impression: Right wrist contusion This note was generated with [employer] software. It may contain incorrect words, spelling, and punctuation that were not noted in review of the chart prior to signing ED Disposition - Plan for ED Patient: Instructions: ED Contusion Upper Ext Referrals: Antonio Mackey MD [Primary Care Provider] -
[2018-12-02 11:49] VITALS: BP 145/80; PULSE 75; RESP 14; O2SAT 98
== END 2018-12-02 11:56 | disposition home or self-care (01) ==
LOC: ED 11:27
PROVIDERS: Emergency Provider Emergency Medicine; Family Provider Family Medicine; PCP Family Medicine
DX: S60.221A Contusion of right hand, initial encounter (principal); X58.XXXA Exposure to other specified factors, initial encounter; Y93.9 Activity, unspecified; Y92.9 Unspecified place or not applicable; K21.9 Gastro-esophageal reflux disease without esophagitis; Z72.0 Tobacco use
CPT/HCPCS: 73130; 99283

== ENCOUNTER → 2018-12-07 11:57 | Outpatient (CLI) | payer MEDICARE, SELFPAY ==
[2018-12-02 10:57] VITALS: BMI 28.2
[2018-12-07 14:15] LABS: Uric Acid 3.3 mg/dL (2.6-6.0)
== END ==
PROVIDERS: Family Provider Family Medicine; PCP Family Medicine; Referring Provider Family Medicine; Visit Provider Family Medicine
DX: M10.9 Gout, unspecified (principal)
CPT/HCPCS: 36415; 84550

== ENCOUNTER 2019-01-22 11:24 | Emergency (ER) | payer MEDICARE, SELFPAY ==
[2019-01-22 11:24] VITALS: BP 196/82; PULSE 67; RESP 14; TEMP 37.1; O2SAT 94; BMI 29.9
--- NOTE | 2019-01-22 11:46 | RAD_ITS ---
STUDY: X-RAY CHEST REASON FOR EXAM: Female, 68 years old. Cough. TECHNIQUE: PA and lateral views of the chest. COMPARISON: Comparison is made with prior study dated June 04, 2010. FINDINGS: EKG electrodes are seen. Hyperinflation. The lungs are clear. There is no demonstrated pleural abnormality. Normal size heart. Normal mediastinum and abdirahman. Normal visualized pulmonary arteries. There is atherosclerotic calcification of the aortic arch with tortuosity. There is demineralization of the osseous structures. Normal visualized ribs, clavicles, and shoulders. There is no demonstrated abnormality of the visualized soft tissue structures of the upper abdomen. RAD/Chest PA and Lateral IMPRESSION: Hyperinflation. The lungs are clear. Electronically Signed: Adrian Evans, at 12:44 EDT , Service support ,
[2019-01-22 11:47] VITALS: O2SAT 92
[2019-01-22 12:10] VITALS: PULSE 64; RESP 18
[2019-01-22] MEDS: Ipratropium/Albuterol Sulfate 3 ML AMPUL.NEB INHALATION (12:10)
--- NOTE | 2019-01-22 13:14 | ED.DCSUM_ITS ---
- ER Visit Summary Date of Service: 01/22/19 Chief Complaint: Shortness of breath History of Present Illness: The patient is a 68 F who states that last week she had a upper respiratory infection. States it got better but over the weekend moved to her chest. She states that she was having a difficult time breathing. She has not been making any sputum. She states that she is a smoker but has no diagnosis of COPD or chronic bronchitis. She states she is never used an inhaler before. EMS noted wheezing and gave her a breathing treatment which she states significantly helped her. No reported fevers Physical Examination: Afebrile vital signs are stable Gen: Well-nourished well-developed Head: Normocephalic atraumatic Eyes: Perrl EOMI ENT: TMs clear no rhinorrhea moist mucous membranes Neck: Supple no lymphadenopathy no JVD nontender CVS: Regular rate rhythm no murmurs normal S1-S2 Respiratory: No distress clear to auscultation bilaterally diminished bilaterally chest nontender Abdomen: Soft nontender nondistended normal bowel sounds no masses Back: Nontender Extremity: Nontender no edema Skin: Normal color no rash Neuro: alert orientated ?3 CN II-XII intact normal strength sensation reflexes gait cerebellar Psych: Normal affect normal mood Test Results: Chest x-ray negative for pneumonia Emergency Department Course and Treatment: Patient received a DuoNeb. Her lung sounds show improved aeration. Patient was started on azithromycin as well as prednisone. We will teach her how to use albuterol MDI. Follow with primary care. Looking cessation encouraged Impression: 1. Acute bronchitis 2. Bronchospasm This note was generated with [employer] dictation software. It may contain incorrect words, spelling, and punctuation that were not noted in review of the chart prior to signing ED Disposition - Plan for ED Patient: Disposition: Home or Assisted Living Instructions: Acute Bronchitis Prescriptions: Azithromycin [Zithromax Z-Ayush] 250 mg PO UD #1 box Prednisone [Deltasone] 40 mg PO DAILY #10 tab Referrals: Antonio Mackey MD [Primary Care Provider] - 1 Week if not improving
[2019-01-22 13:18] VITALS: BP 150/88; PULSE 67; RESP 16; O2SAT 95
== END 2019-01-22 13:23 | disposition home or self-care (01) ==
PROVIDERS: Emergency Provider Emergency Medicine; Family Provider Family Medicine; PCP Family Medicine
DX: J20.9 Acute bronchitis, unspecified (principal); K21.9 Gastro-esophageal reflux disease without esophagitis; F17.200 Nicotine dependence, unspecified, uncomplicated
CPT/HCPCS: 71046; 94640; 99284

== ENCOUNTER 2019-02-14 14:07 | Emergency (ER) | payer MEDICARE, SELFPAY ==
[2019-02-14 14:09] VITALS: BP 188/86; PULSE 75; RESP 16; TEMP 36.8; O2SAT 97; BMI 29.4
--- NOTE | 2019-02-14 14:38 | RAD_ITS ---
STUDY: X-RAY - LEFT HAND REASON FOR EXAM: Slight pain and swelling, no specific injury. TECHNIQUE: 3 view(s) of the hand. COMPARISON: None. FINDINGS: There is osteopenia. Normal radiocarpal articulation. Normal distal radioulnar joint. Normal visualized carpal bones. Normal carpal articulations Normal carpometacarpal articulation of the thumb. Normal second through fifth carpometacarpal joints. Normal metacarpi. Normal metacarpophalangeal joint of the thumb. Normal interphalangeal joint of the thumb. Normal proximal and distal phalanges of the thumb. Normal metacarpophalangeal joints of the second through fifth fingers. Normal proximal and distal interphalangeal joints of the second through fifth fingers. Normal phalanges of the second through fifth fingers. There is mild chondrocalcinosis in the triangular fibrocartilage and lunotriquetral ligament. RAD/Hand Min 3 Views IMPRESSION: Mild chondrocalcinosis. Osteopenia. Electronically Signed: Gerson Kraus MD at 15:09 EDT Tel , Service support ,
--- NOTE | 2019-02-14 15:53 | ED.VISSUMM ---
- ER Visit Summary Date of Service: 02/14/19 Chief Complaint: Left hand pain and swelling History of Present Illness: The patient is a 69 F who states she woke this morning with pain to her left hand with localized swelling. She denies any known injury. She is right-hand dominant. She did take Vicodin prior to arrival. Physical Examination: Vital signs significant for blood pressure of 188/86. Patient sitting upright in bed no acute distress. Left upper extremity examination was tenderness palpation and mild edema on the radial aspect of the carpal bones and the proximal metacarpals. No overlying skin changes noted. She has no tenderness of the forearm or humerus. There is no arm edema. Test Results: Left hand x-rays reveal mild chondrocalcinosis. Osteopenia is present. Emergency Department Course and Treatment: Test results were discussed with the patient. Patient has mild erythema over this area on repeat evaluation. She may have an early gout flare. She will continue taking [place]. She will be given a prescription for prednisone burst and will be given a Velcro wrist splint. Treatment Plan: [] Disposition: Discharge Impression: Left wrist pain This note was generated with [employer] dictation software. It may contain incorrect words, spelling, and punctuation that were not noted in review of the chart prior to signing ED Disposition - Plan for ED Patient: Disposition: Home or Assisted Living Instructions: ED Sprain Wrist Prescriptions: Prednisone [Deltasone] 40 mg PO DAILY #10 tablet Referrals: Antonio Mackey MD [Primary Care Provider] - 1 Week if not improving
[2019-02-14 16:12] VITALS: RESP 18
[2019-02-14] MEDS: predniSONE 20 MG Tablet 40 MG PO (16:14)
== END 2019-02-14 16:14 | disposition home or self-care (01) ==
PROVIDERS: Emergency Provider Emergency Medicine; Family Provider Family Medicine; PCP Family Medicine
DX: M25.532 Pain in left wrist (principal); K21.9 Gastro-esophageal reflux disease without esophagitis; Z72.0 Tobacco use
CPT/HCPCS: 73130; 99283

== ENCOUNTER 2019-03-01 17:28 | Emergency (ER) | payer MEDICARE, SELFPAY ==
[2019-03-01 17:32] VITALS: BP 162/102; PULSE 67; RESP 14; TEMP 36.4; O2SAT 94; BMI 27.4
--- NOTE | 2019-03-01 17:49 | EKG12_ITS ---
Test Reason : DEPRESSION Blood Pressure : / mmHG Vent. Rate : 062 BPM Atrial Rate : 062 BPM P-R Int : 164 ms QRS Dur : 066 ms QT Int : 422 ms P-R-T Axes : 070 042 060 degrees QTc Int : 428 ms Normal sinus rhythm Minimal voltage criteria for LVH, may be normal variant Borderline ECG Confirmed by ANGELICA TRIVEDI ([id number]), editor managing newspaper MARIOLA GERARD ([id number]) on 03/08/2019 8:53:26 AM Referred By: Huseyin Palomares Confirmed By:ANGELICA TRIVEDI
--- NOTE | 2019-03-01 17:50 | RAD_ITS ---
STUDY: X-RAY CHEST REASON FOR EXAM: Female, 69 years old. Hypertension TECHNIQUE: Single AP portable view of the chest. COMPARISON: 01/22/2019 FINDINGS: EKG leads overlie the chest The lungs are clear and expanded. There is no demonstrated pleural abnormality. Normal size heart. Normal mediastinum and abdirahman. Normal visualized pulmonary arteries. Normal visualized aortic arch and descending thoracic aorta. Normal visualized thoracic spine. Normal visualized ribs, clavicles, and shoulders. There is no demonstrated abnormality of the visualized soft tissue structures of the upper abdomen. RAD/Chest 1 View (Portable) IMPRESSION: Normal x-ray examination of the chest. Electronically Signed: José Miguel Senior MD at 18:21 EDT , Service support ,
--- NOTE | 2019-03-01 17:50 | ED.VISSUMM ---
- ER Visit Summary Date of Service: 03/01/19 Chief Complaint: Headache, elevated blood pressure, leg swelling History of Present Illness: The patient is a 69 F who presents with the above symptoms. Is been ongoing for the past 2 days. The patient states she recently lost her and she has been dealing with a lot of stress related to that. She has noticed that her blood pressures been increasing at home. She takes lisinopril at night. She has been compliant with her medications. She denies having any chest pain or shortness of breath. She does admit to a headache. She also feels like her legs are swollen. She has no history of this either. She does take potassium supplements every day. Physical Examination: Vital signs reviewed. HEENT exam unremarkable. Heart is regular rate and rhythm without murmurs. Lungs are clear to auscultation. Abdomen is soft and nontender. Extremities reveal no edema. Peripheral pulses are equal. Skin exam normal. Neurologic exam normal. Test Results: EKG is normal sinus rhythm with a rate of 62. No ST changes. Laboratory studies are normal except for potassium of 3.4. Chest x-ray normal. Emergency Department Course and Treatment: Patient was given Tylenol for her headache. Otherwise I do not see any reason for her elevated blood pressure or leg swelling. Her repeat blood pressure is 155/81. She will not be medicated for this. She will continue her home medications. She has a follow-up with her primary care physician tomorrow. Treatment Plan: [] Disposition: Discharge Impression: Headache, hypertension, acute stress/grief reaction This note was generated with [employer] dictation software. It may contain incorrect words, spelling, and punctuation that were not noted in review of the chart prior to signing ED Disposition - Plan for ED Patient: Referrals: Antonio Mackey MD [Primary Care Provider] -
[2019-03-01 18:09] VITALS: O2SAT 95
[2019-03-01 18:13] LABS: Absolute Lymphocyte Count 2.55 X10^3/ul (0.83-4.51); Absolute Neutrophil Count 5.1 X10^3/uL (2.0-7.7); Basophil# 0.04 X10^3/uL; Basophil% 0.5 % (0-1); Eosinophil# 0.16 X10^3/uL; Eosinophils% 1.9 % (0-5); Hematocrit 38.4 % (37-47); Hemoglobin 12.4 g/dl (12.0-15.0); Lymphocyte # 2.55 X10^3/ul (4.0); Lymphocyte % 30.1 % (19-41); Mean Corp Hgb Conc 32.3 g/gl (32-36); Mean Corpuscular Hgb 27.8 pg (27.0-32.0); Mean Corpuscular Volume 86.1 fL (81-99); Mean Platelet Vol. 8.7 fl (6.2-12.0); Monocyte% 7.1 % (0-10); Neutrophil # 5.11 X10^3/uL (2.7-7.7); Neutrophil % 60.2 % (47-70); Platelet Count 277 K/mm3 (150-450); RBC Distribution Width CV 16.1 % (11.6-14.6); RBC Distribution Width SD 50.7 fl (35.1-43.9); Red Blood Count 4.46 M/mm3 (4.2-5.4); White Blood Count 8.5 K/mm3 (4.4-11.0)
[2019-03-01 18:14] LABS: POSITIVE COUNT NO; POSITIVE DIFFERENTIAL NO; POSITIVE MORPHOLOGY NO
[2019-03-01 18:35] LABS: Anion Gap 4 (5-15); BUN 15 mg/dL (7-18); BUN/Creat Ratio 15.6 RATIO (10-20); Calcium,Total 8.9 mg/dL (8.5-10.1); Chloride 110 mmol/L (98-107); Creatinine, Serum 0.96 mg/dL (0.55-1.02); EST Glomerular Filtration Rate 61 mL/min (>60); Est Glom Filt Rate - Afr Amer 74 mL/min (>60); Glucose 92 mg/dL (74-106); Potassium 3.4 mmol/L (3.5-5.1); Sodium Level 142 mmol/L (136-145)
--- NOTE | 2019-03-01 18:49 | ED.DEP ---
ED Disposition - Plan for ED Patient: Disposition: Home or Assisted Living Instructions: ED HTN Established Referrals: Antonio Mackey MD [Primary Care Provider] -
[2019-03-01 19:02] VITALS: BP 155/68; O2SAT 98
[2019-03-01] MEDS: Acetaminophen 500 MG Tablet 1000 MG PO (19:07)
== END 2019-03-01 19:07 | disposition home or self-care (01) ==
PROVIDERS: Emergency Provider Emergency Medicine; Family Provider Family Medicine; PCP Family Medicine
DX: F43.29 Adjustment disorder with other symptoms (principal); I10 Essential (primary) hypertension; R51 Headache; K21.9 Gastro-esophageal reflux disease without esophagitis; Z79.899 Other long term (current) drug therapy; Z72.0 Tobacco use
CPT/HCPCS: 71045; 80048; 84484; 85025; 93005; 99285; A4216

== ENCOUNTER 2019-03-04 16:49 | Inpatient (IN) | payer MEDICARE, SELFPAY ==
[2019-03-04 16:50] VITALS: BP 208/84; PULSE 68; RESP 20; TEMP 38.5; O2SAT 97; BMI 28.2
--- NOTE | 2019-03-04 17:08 | EKG12_ITS ---
Test Reason : NAUSEA Blood Pressure : / mmHG Vent. Rate : 065 BPM Atrial Rate : 065 BPM P-R Int : 160 ms QRS Dur : 074 ms QT Int : 404 ms P-R-T Axes : 073 048 075 degrees QTc Int : 420 ms Normal sinus rhythm Minimal voltage criteria for LVH, may be normal variant Borderline ECG Confirmed by RORY VORA, PALMER ([id number]), international editorial producer MARIOLA GERARD ([id number]) on 03/07/2019 9:15:42 AM Referred By: Huseyin Palomares Confirmed By:PALMER VALADEZ MD
--- NOTE | 2019-03-04 17:11 | CT_ITS ---
STUDY: CT ABDOMEN AND PELVIS WITHOUT CONTRAST REASON FOR EXAM: Female, 69 years old. Abdominal pain. Nausea and vomiting diarrhea. Bladder cancer. Status post cystectomy. Urostomy. RADIATION DOSAGE (If Supplied By Facility): CTDIvol = ( 9.19 ) mGy, DLP = ( 519.10 ) mGycm TECHNIQUE: Transaxial images were obtained from the dome of the diaphragm to the symphysis pubis without oral contrast, and without intravenous contrast. Sagittal and coronal images were reconstructed. Individualized dose optimization techniques were used for this CT. COMPARISON: 10/13/2018. FINDINGS: The visualized lung bases are unremarkable. The visualized portions of the heart are within normal limits. Normal liver. There is non-visualization of the gallbladder, which may be secondary to either contraction or a prior cholecystectomy. Normal spleen. Normal pancreas. Normal right adrenal gland. Stable 2 cm mass of the left adrenal gland. No acute abnormalities of the kidneys. No stones. No hydronephrosis. Bilateral extrarenal pelves. Evaluation of the GI tract is very limited in this postoperative patient. Cannot exclude stomach wall thickening. There is a right ileostomy within which a catheter is seen extending down into a loop of bowel residing within a large right inguinal hernia. 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 There is also evidence for right colectomy, and there are complex right lateral wall and parastomal hernias containing loops of bowel but without definite obstruction. Segments of bowel wall thickening/enteritis/colitis cannot be excluded without oral contrast. Diverticulosis without diverticulitis. There is diffuse atherosclerotic calcification of the abdominal aorta, with ectasia but without a demonstrated aneurysm. Normal inferior vena cava. Normal retroperitoneum. No definite adenopathy, mass, abscess or free fluid. There are diffuse degenerative changes of the visualized lumbar spine. CT/Abdomen/Pelvis without Cont IMPRESSION: No definite acute abnormality. No definite obstruction. Segments of bowel wall thickening/enteritis/colitis are not excluded. Complex right abdominal wall hernias containing loops of bowel but without evidence for obstruction. The ileal conduit is seen within a moderate-sized right inguinal hernia also present previously. Electronically Signed: Norberto Jean MD at 18:25 EDT , Service support ,
[2019-03-04 17:14] VITALS: BP 196/98; PULSE 66; RESP 17; O2SAT 96
--- NOTE | 2019-03-04 17:15 | RAD_ITS ---
STUDY: X-RAY CHEST REASON FOR EXAM: Female, 69 years old. Nausea and vomiting TECHNIQUE: AP COMPARISON: 03/01/2019 FINDINGS: EKG leads project over the chest. The lungs are clear and expanded. There is no demonstrated pleural abnormality. Normal size heart. Normal mediastinum and abdirahman. Normal visualized pulmonary arteries. There is atherosclerotic calcification of the aortic arch with tortuosity. No acute bony process. There is no demonstrated abnormality of the visualized soft tissue structures of the upper abdomen. RAD/Chest 1 View (Portable) IMPRESSION: Stable, nonacute portable x-ray examination of the chest. Electronically Signed: Yamil Felix MD at 17:27 EDT , Service support ,
[2019-03-04] MEDS: fentaNYL 100 MCG/2 ML Ampul 50 MCG IV ×2 (17:21→19:30)
[2019-03-04] MEDS: 0.9% Normal Saline 1,000 ML IV.SOLN. 1000 ML IV (17:21)
[2019-03-04] MEDS: Ondansetron 4 MG/2 ML Vial IV ×2 (17:21→19:08)
[2019-03-04 17:31] LABS: Absolute Lymphocyte Count 1.07 X10^3/ul (0.83-4.51); Absolute Neutrophil Count 11.3 X10^3/uL (2.0-7.7); Basophil# 0.01 X10^3/uL; Basophil% 0.1 % (0-1); Eosinophil# 0.08 X10^3/uL; Eosinophils% 0.6 % (0-5); Hemoglobin 14.1 g/dl (12.0-15.0); Lymphocyte # 1.07 X10^3/ul (4.0); Lymphocyte % 7.7 % (19-41); Mean Corp Hgb Conc 32.8 g/gl (32-36); Mean Corpuscular Hgb 28.3 pg (27.0-32.0); Mean Corpuscular Volume 86.2 fL (81-99); Mean Platelet Vol. 9.4 fl (6.2-12.0); Monocyte# 1.41 X10^3/uL; Monocyte% 10.2 % (0-10); Neutrophil # 11.26 X10^3/uL (2.7-7.7); Neutrophil % 81.2 % (47-70); POSITIVE COUNT NO; POSITIVE DIFFERENTIAL NO; POSITIVE MORPHOLOGY NO; Platelet Count 282 K/mm3 (150-450); RBC Distribution Width CV 15.8 % (11.6-14.6); RBC Distribution Width SD 50.1 fl (35.1-43.9); Red Blood Count 4.99 M/mm3 (4.2-5.4); White Blood Count 13.9 K/mm3 (4.4-11.0)
[2019-03-04 17:35] LABS: Mucous, Urine 0 SEEN /hpf (<or=2+); Red Blood Cells-Urine 0 SEEN /hpf (0-5); Squamous Epithelial Cells - UA 0 SEEN /hpf (5-10)
[2019-03-04 17:42] LABS: Color, Urine Yellow (Yellow); Glucose, Dipstick Normal (Normal); Ketone-Dipstick 15 mg/dl (Negative); Leukocyte Esterase-Dipstick 25 /ul (Negative); Nitrite-Dipstick Negative (Negative); Occult Blood-Urine 50 /ul (Negative); Protein-Dipstick 30 mg/dl (Negative); Urine Bilirubin Dipstick Negative (Negative); Urine Clarity Turbid (Clear); Urine Urobilinogen Normal (Normal)
--- NOTE | 2019-03-04 17:49 | ED.RN ---
pt reports back pain was 12/10 on arrival and after fentanyl is now 7/10
[2019-03-04 17:53] LABS: ALB/GLOB Ratio 0.9 RATIO (0.9-2.4); AST(SGOT) 16 U/L (15-37); Alanine Aminotransfer ALT/SGPT 16 U/L (13-56); Albumin, Serum 3.4 g/dL (3.2-5.0); Alkaline Phosphatase 120 U/L (45-117); Anion Gap 8 (5-15); BUN 13 mg/dL (7-18); BUN/Creat Ratio 13.9 RATIO (10-20); Calcium,Total 8.9 mg/dL (8.5-10.1); Chloride 107 mmol/L (98-107); Creatinine, Serum 0.93 mg/dL (0.55-1.02); EST Glomerular Filtration Rate 63 mL/min (>60); Est Glom Filt Rate - Afr Amer 77 mL/min (>60); Estimated Creatinine Clearance 47.89 ml/min; Globulin 3.9 g/dL (2.2-4.2); Glucose 107 mg/dL (74-106); Lactic Acid 0.8 mmol/L (0.4-2.0); Potassium 3.7 mmol/L (3.5-5.1); Protein, Total 7.3 g/dL (6.4-8.2); Sodium Level 140 mmol/L (136-145)
[2019-03-04 17:56] LABS: Bacteria 1+ /hpf (None Seen); White Blood Cells 10-25 SEEN /hpf (0-5)
[2019-03-04 17:57] LABS: Amorphous Sediment 2+
[2019-03-04 17:58] LABS: Triple Phosphate Crystals Ur RARE /hpf (<or=1+)
[2019-03-04 18:02] LABS: Partial Thromboplast Time 24.7 Seconds (24.1-36.2); Prothrombin Time (Protime)PT. 13.1 SECONDS (11.7-14.9)
--- NOTE | 2019-03-04 18:40 | ED.VISSUMM ---
- ER Visit Summary Date of Service: 03/04/19 Chief Complaint: Nausea, vomiting, diarrhea History of Present Illness: The patient is a 69 F patient presents with nausea, vomiting, diarrhea. Symptoms started yesterday at 1 PM. Came on gradually. Continuous. Associated with fever, chills. Patient has back pain, but this is a chronic issue. No recent injections or spinal procedures. Patient has not been on antibiotics recently. Denies any history of C. difficile. Denies travel. Patient has a history of ileal conduit and hernia. Physical Examination: Temperature one 1.3. Blood pressure 208/84. Otherwise vitals unremarkable. Patient appears uncomfortable with dry mucous membranes. Heart regular. Lungs clear. Abdomen soft and nontender. Extremities nontender. No rigidity, normal reflexes. No clonus. Skin is slightly dry. Cranial nerves grossly intact. Normal strength and sensation. Test Results: EKG showed sinus rhythm rate 65. Chest x-ray was normal. Troponin normal. Lactate normal. White count 13.9. Metabolic panel unremarkable. Coags unremarkable. Urinalysis showed signs of infection possibly. Cultures are pending. CT of her abdomen showed postoperative changes but nothing acute. Emergency Department Course and Treatment: Patient was treated with fluids and Tylenol. Work-up was suggestive of sepsis. Urinalysis shows possible infection. Cultures are pending. Patient has multiple antibiotic allergies and was treated with Azactam. Repeat blood pressure 172/64. We will continue to monitor. Patient is denying headache or neurologic symptoms. Given the patient's multiple above issues, sepsis. We contacted the hospitalist for admission. Treatment Plan: As above Disposition: Admission Impression: 1. UTI 2. Sepsis 3. Hypertension This note was generated with [employer] dictation software. It may contain incorrect words, spelling, and punctuation that were not noted in review of the chart prior to signing ED Disposition - Plan for ED Patient: Referrals: Antonio Mackey MD [Primary Care Provider] -
[2019-03-04 19:00] VITALS: BP 170/60; PULSE 70; RESP 20; TEMP 38.4; O2SAT 94
[2019-03-04] MEDS: Acetaminophen 500 MG Tablet 1000 MG PO (19:08)
--- NOTE | 2019-03-04 19:43 | HP.PCM_ITS ---
Problem List (1) Acute gastroenterocolitis Status: Acute (2) UTI (urinary tract infection) Status: Acute (3) Suprapubic catheter Status: Chronic (4) Pyelonephritis Status: Acute (5) Abdominal wall ulcer Status: Chronic (6) History of tobacco use Status: Chronic (7) History of bladder cancer Status: Chronic (8) History of kidney stones Status: Chronic (9) GERD (gastroesophageal reflux disease) Status: Chronic (10) Chronic low back pain Status: Chronic History of Present Illness Date of Admission: 03/04/19 Chief Complaint: Nausea and diarrhea for 2 days and fever The patient is a 69 year old F history of bladder cancer status post cystectomy and ileal conduit with tube came to ER for that is started yesterday about 1 PM. Patient also has nausea, diarrhea but denies vomiting. Stool consistency is liquid with mucus but no blood. 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 Follows [facility] surgeon. In ER, patient was found fever 101.1 Fahrenheit but no tachycardia. Blood pressure high 170/60. Leukocytosis 14,000 with left shift 81% neutrophils. UA positive of pyuria 10-25 cells, LE 25 nitrite negative with 1+ bacteria. Patient also complained of suprapubic mild pain but had cystectomy long time ago Clinical Impression(s) from Imaging Studies Abdomen/Pelvis CT 03/04/19 17:11 IMPRESSION: No definite acute abnormality. No definite obstruction. Segments of bowel wall thickening/enteritis/colitis are not excluded. Complex right abdominal wall hernias containing loops of bowel but without evidence for obstruction. The ileal conduit is seen within a moderate-sized right inguinal hernia also present previously. Chest X-Ray 03/04/19 17:15 IMPRESSION: Stable, nonacute portable x-ray examination of the chest. Past Medical History Past Medical History (Chronic Problems): Chronic Problems Suprapubic catheter (Chronic) Abdominal wall ulcer (Chronic) History of tobacco use (Chronic) History of bladder cancer (Chronic) History of kidney stones (Chronic) GERD (gastroesophageal reflux disease) (Chronic) Chronic low back pain (Chronic) Allergies Iodinated Contrast- Oral and IV Dye [Iodinated Contrast Media - IV Dye] Allergy (Verified 03/01/19 17:31) started having [place] Penicillins Allergy (Verified 03/01/19 17:31) Rash Sulfa (Sulfonamide Antibiotics) Allergy (Verified 03/01/19 17:31) Rash amlodipine Adverse Reaction (Verified 03/01/19 17:31) nausea, htn, headaches ciprofloxacin [From Cipro] Adverse Reaction (Verified 03/01/19 17:31) stomach problems ciprofloxacin HCl [From Cipro] Adverse Reaction (Verified 03/01/19 17:31) stomach problems hydromorphone HCl [From Dilaudid] Adverse Reaction (Verified 03/01/19 17:31) headache nitrofurantoin [From Macrobid] Adverse Reaction (Verified 03/01/19 17:) doesn't work nitrofurantoin macrocrystalline [From Macrobid] Adverse Reaction (Verified 03/01/19 17:) doesn't work pramipexole Adverse Reaction (Verified 03/01/19 17:) stomach problems sucralfate Adverse Reaction (Verified 03/01/19 17:) can't swallow Home Medications: Ambulatory Orders Medication Instructions Recorded Calcium Carbonate/Vitamin D3 1 each PO DAILY 04/02/18 [Calcium 600-Vit D3 200 Tablet] Cholecalciferol (Vitamin D3) 100,000 unit PO FR 04/02/18 [Vitamin D3] Cyclobenzaprine [Flexeril] 10 mg PO QHS 04/02/18 Hydrocodone/Acetaminophen [[place] 1 each PO BID 04/02/18 5-325 Tablet] Lisinopril [Prinivil] 10 mg PO QHS 04/02/18 Omeprazole [Prilosec] 40 mg PO DAILY 04/02/18 Potassium Citrate [Potassium 10 mg PO BID 04/02/18 Citrate ER] Gabapentin [Neurontin] 300 mg PO BID 01/22/19 Surgical History: cholecystectomy, herniorrhaphy, - - Removal of bladder with reconstruction. The surgery was 20 years ago. Smoking Status: Current every day smoker - *Family History Maternal History Items: No pertinent history Review of Systems Constitutional: Reports: Chills, Fever, Weakness HEENT: Denies: Head Aches, Sinus Congestion, Sinus Drainage Cardiovascular: Denies: Chest Pain, Palpitations Respiratory: Denies: Cough, Shortness of breath at rest, Sputum production Gastrointestinal: Reports: Diarrhea. Denies: Hematemesis, Hematochezia, Nausea, Vomiting Genitourinary: Reports: - - Patient has ileal conduit urine tube. Urine looks clear in the tubing and bag., - - No renal angle tenderness. Denies: Dysuria Musculoskeletal: Denies: Joint Pain, Joint Tenderness Skin: Denies: Rash, Wounds Neurological: Denies: Numbness, Tingling, Focal weakness Psychiatric: Denies: Anxiety, Depression, Homicidal Ideations, Suicidal Ideations Hematologic/ Lymphatic: Denies: Easy Bruising, Easy Bleeding VTE Information - Inpt Only VTE Present on Admission: No VTE Mechan Device Prophylaxis: None VTE Pharm Prophylaxis ordered?: Yes Patient Problems: Active and Suspected Problems Acute gastroenterocolitis (Acute) UTI (urinary tract infection) (Acute) - Physical Exam General: Alert, Oriented x3, Cooperative HEENT: Atraumatic, PERRLA, EOMI, Normocephalic Oral: Dry Mucosa Neck: Supple, No JVD, Negative Carotid Bruits Lungs: Clear to auscultation, Normal air movement, No rhonchi, No wheeze, No rales Cardiovascular: Regular rate, Regular Rhythm, Normal S1, Normal S2, No murmurs Abdomen: Bowel Sounds Present, Soft, Non Tender, Non-Distended, - - Parastomal hernia present around the ilial conduit. Extremities: No edema, Capillary Refill Less than 3 Seconds Skin: No rashes, No breakdown Musculoskeletal: No Tenderness to Palpation of Joints or Extremities, Arthritic Changes Neurological: Cranial nerves II-XII grossly intact Psych/Mental Status: Normal Affect, Appropriate Vital Signs Temp Pulse Resp BP Pulse Ox 101.1 F H 70 20 H 170/60 H 94 03/04/19 19:00 03/04/19 19:00 03/04/19 19:00 03/04/19 19:00 03/04/19 19:00 Oxygen Delivery Method Room Air Weight: 159 lb 8 oz Body Mass Index (BMI) 28.2 Laboratory Tests Past 24 Hrs 03/04/19 03/04/19 03/04/19 17:00 17:00 17:00 WBC 13.9 H RBC 4.99 Hgb 14.1 Hct 43.0 MCV 86.2 MCH 28.3 MCHC 32.8 RDW 15.8 H RDW Differential 50.1 H Plt Count 282 MPV 9.4 Immature Gran % (Auto) 0.200 Neut % (Auto) 81.2 H Lymph % (Auto) 7.7 L [place] % (Auto) 10.2 H Eos % (Auto) 0.6 Baso % (Auto) 0.1 Absolute Neuts (auto) 11.3 H Absolute Lymphs (auto) 1.07 Total Counted Not Reportable PT INR APTT Sodium 140 Potassium 3.7 Chloride 107 Carbon Dioxide 25.0 Anion Gap 8 BUN 13 Creatinine 0.93 Estim Creat Clear Calc 47.89 Est GFR (MDRD) Af Amer 77 Est GFR (MDRD) Non-Af 63 BUN/Creatinine Ratio 13.9 Glucose 107 H Lactic Acid 0.8 Calcium 8.9 Total Bilirubin 0.60 AST 16 ALT 16 Alkaline Phosphatase 120 H Troponin I < 0.015 Total Protein 7.3 Albumin 3.4 Globulin 3.9 Albumin/Globulin Ratio 0.9 Urine Color Urine Clarity Urine pH Ur Specific [place] Urine Protein Urine Glucose (UA) Urine Ketones Urine Occult Blood Urine Nitrite Urine Bilirubin Urine Urobilinogen Ur Leukocyte Esterase Urine RBC Urine WBC Ur Squamous Epith Cells Triple Phos Crystals Amorphous Sediment Urine Bacteria Urine Mucus 03/04/19 03/04/19 17:31 17:45 WBC RBC Hgb Hct MCV MCH MCHC RDW RDW Differential Plt Count MPV Immature Gran % (Auto) Neut % (Auto) Lymph % (Auto) [place] % (Auto) Eos % (Auto) Baso % (Auto) Absolute Neuts (auto) Absolute Lymphs (auto) Total Counted PT 13.1 INR 1.0 APTT 24.7 Sodium Potassium Chloride Carbon Dioxide Anion Gap BUN Creatinine Estim Creat Clear Calc Est GFR (MDRD) Af Amer Est GFR (MDRD) Non-Af BUN/Creatinine Ratio Glucose Lactic Acid Calcium Total Bilirubin AST ALT Alkaline Phosphatase Troponin I Total Protein Albumin Globulin Albumin/Globulin Ratio Urine Color Yellow Urine Clarity Turbid Urine pH 8.0 Ur Specific [place] 1.010 Urine Protein 30 H Urine Glucose (UA) Normal Urine Ketones 15 H Urine Occult Blood 50 H Urine Nitrite Negative Urine Bilirubin Negative Urine Urobilinogen Normal Ur Leukocyte Esterase 25 H Urine RBC 0 SEEN Urine WBC 10-25 SEEN Ur Squamous Epith Cells 0 SEEN Triple Phos Crystals RARE Amorphous Sediment 2+ Urine Bacteria 1+ Urine Mucus 0 SEEN Assessment/Plan All Active Problems Pyelonephritis (Acute) Acute gastroenterocolitis (Acute) UTI (urinary tract infection) (Acute) The patient is a 69 year old F history of bladder cancer status post cystectomy and ileal conduit with tube came to ER for that is started yesterday about 1 PM. Patient also has nausea, diarrhea but denies vomiting. Stool consistency is liquid with mucus but no blood. 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 Follows [facility] general surgeon. In ER, patient was found fever 101.1 Fahrenheit but no tachycardia. Blood pressure high 170/60. Leukocytosis 14,000 with left shift 81% neutrophils. UA positive of pyuria 10-25 cells, LE 25 nitrite negative with 1+ bacteria. Patient also complained of suprapubic mild pain but had cystectomy long time ago. The patient was last admitted in March 2018 for Proteus mirabilis acute pyelonephritis and right hydroureteronephrosis. 1. SIRS probably secondary to acute enterocolitis or UTI: It is being admitted to [facility]. IV fluid Ringer lactate. Started on IV Rocephin and Flagyl. Stool for occult blood, leukocytes and C. difficile ordered. Enteric motility panel ordered. Blood cultures x2 and urine culture ordered. CT abdomen shows hernia but no obstruction and abd exam no tenderness. Patient denies any recent antibiotic intake in the last 3 to 4 months. Had not recent UTI. Clear liquid diet. Monitor electrolytes and CBC 2. History of bladder cancer status post cystectomy about 30 years ago with ileal conduit urine tube: Patient follows Dr. Perrin. 3. Hypertension with EKG change of LVH: Blood pressure is high. Continue home medication and monitoring. 4. Other chronic comorbidities include history of kidney stones and chronic low back pain stable. DVT prophylaxis: On Lovenox 40 mg daily. Discontinue if platelet count drops less than 50,000 or hemoglobin less than 8 g% Living will/advanced directive?goal of life: Patient does not want artificial life support including intubation, tube feed, ventilator and/chest compression. Patient has clear insight and wants no artificial measures or support to prolong her life. Patient is DNR CC. Total time spent in [id number] encounter in discussion of advanced directive 18 minutes. Clinical Impression(s) from Imaging Studies Abdomen/Pelvis CT 03/04/19 17:11 IMPRESSION: No definite acute abnormality. No definite obstruction. Segments of bowel wall thickening/enteritis/colitis are not excluded. Complex right abdominal wall hernias containing loops of bowel but without evidence for obstruction. The ileal conduit is seen within a moderate-sized right inguinal hernia also present previously. Chest X-Ray 03/04/19 17:15 IMPRESSION: Stable, nonacute portable x-ray examination of the chest. Code Visit Inpatient E&M: 65442 Init Hosp L3 Procedures: 95939 Advncd Care Plan 30 Min
[2019-03-04 19:53] VITALS: BMI 30.4; BMI 30.5
[2019-03-04 20:09] LABS: Magnesium 1.9 mg/dL (1.6-2.6)
[2019-03-04 20:16] VITALS: BP 161/69; PULSE 60; RESP 16; TEMP 37.4; O2SAT 94
[2019-03-04] MEDS: proMETHazine 25 MG/ML Syringe 12.5 MG IV (22:07)
[2019-03-04] MEDS: Sertraline 50 MG Tablet 25 MG PO (22:09)
[2019-03-04] MEDS: Lisinopril 10 MG Tablet PO (22:10)
[2019-03-04] MEDS: Gabapentin 300 MG Capsule PO (22:10)
[2019-03-04] MEDS: Propranolol LA 60 MG Capsule PO (22:10)
[2019-03-04] MEDS: HYDROcodone Bitartrate/Apap 5/325 Tablet PO (22:10)
[2019-03-04] MEDS: 0.9% Normal Saline 1,000 ML 100 ML IV (22:11)
[2019-03-04] MEDS: Ceftriaxone 1 GM/50 ML BAG IV (22:13)
[2019-03-04] MEDS: Enoxaparin 40 MG/0.4 ML Syringe SC (22:15)
[2019-03-04 22:35] VITALS: O2SAT 96
[2019-03-05 03:09] VITALS: BP 120/69; PULSE 47; RESP 16; TEMP 36.8; O2SAT 94
[2019-03-05 06:05] LABS: Absolute Lymphocyte Count 1.11 X10^3/ul (0.83-4.51); Absolute Neutrophil Count 8.8 X10^3/uL (2.0-7.7); Basophil# 0.02 X10^3/uL; Basophil% 0.2 % (0-1); Eosinophil# 0.04 X10^3/uL; Eosinophils% 0.4 % (0-5); Hematocrit 39.8 % (37-47); Hemoglobin 12.9 g/dl (12.0-15.0); Lymphocyte # 1.11 X10^3/ul (4.0); Mean Corp Hgb Conc 32.4 g/gl (32-36); Mean Corpuscular Hgb 28.4 pg (27.0-32.0); Mean Corpuscular Volume 87.5 fL (81-99); Mean Platelet Vol. 9.6 fl (6.2-12.0); Monocyte# 1.17 X10^3/uL; Monocyte% 10.5 % (0-10); Neutrophil # 8.77 X10^3/uL (2.7-7.7); Neutrophil % 78.7 % (47-70); Platelet Count 244 K/mm3 (150-450); RBC Distribution Width CV 16.1 % (11.6-14.6); RBC Distribution Width SD 50.8 fl (35.1-43.9); Red Blood Count 4.55 M/mm3 (4.2-5.4); White Blood Count 11.1 K/mm3 (4.4-11.0)
[2019-03-05 06:10] LABS: POSITIVE COUNT NO; POSITIVE DIFFERENTIAL NO; POSITIVE MORPHOLOGY NO
[2019-03-05 06:23] LABS: Anion Gap 6 (5-15); BUN 14 mg/dL (7-18); BUN/Creat Ratio 15.7 RATIO (10-20); Calcium,Total 8.2 mg/dL (8.5-10.1); Chloride 112 mmol/L (98-107); Creatinine, Serum 0.89 mg/dL (0.55-1.02); EST Glomerular Filtration Rate 67 mL/min (>60); Est Glom Filt Rate - Afr Amer 81 mL/min (>60); Estimated Creatinine Clearance 50.04 ml/min; Glucose 105 mg/dL (74-106); Potassium 3.3 mmol/L (3.5-5.1); Sodium Level 142 mmol/L (136-145)
[2019-03-05] MEDS: Potassium Chloride 10mEq/100mL 10 MEQ/100 ML IV.SOLN. 100 MEQ IV BOLUS ×2 (07:19→09:25)
[2019-03-05 07:20] VITALS: O2SAT 94
[2019-03-05 09:20] VITALS: BP 183/83; PULSE 51; RESP 18; TEMP 36.7; O2SAT 96
[2019-03-05] MEDS: Pantoprazole Sodium 40 MG Tablet PO (09:25)
[2019-03-05] MEDS: Enoxaparin 40 MG/0.4 ML Syringe SC (09:25)
[2019-03-05] MEDS: Gabapentin 300 MG Capsule PO (09:25)
[2019-03-05] MEDS: Sertraline 50 MG Tablet 25 MG PO (09:25)
[2019-03-05] MEDS: HYDROcodone Bitartrate/Apap 5/325 Tablet PO (09:26)
[2019-03-05] MEDS: Ensure Clear 120 ML Liquid PO (09:27)
[2019-03-05 11:16] VITALS: BP 149/74; PULSE 50
[2019-03-05] MEDS: 0.9% Normal Saline 1,000 ML 100 ML IV (11:18)
--- NOTE | 2019-03-05 11:49 | PCM.DC ---
- Discharge Diagnoses Current Active Problems: Current Active and Chronic Problems Acute gastroenterocolitis (Acute) UTI (urinary tract infection) (Acute) You will use the following diet at home:: Cardiac Your food should be the consistency of: Regular Your liquids should be the consistency of: Regular/Thin Discharge Activity: Return to Normal Activity Weight Bearing Status: Weight bearing as tolerated Call your doctor if you observe: Fever of 101 or Higher, Shortness of breath, Uncontrolled pain Instructions: Understanding Urinary Tract Infections (UTIs) Allergies/Adverse Reactions: Allergies Iodinated Contrast- Oral and IV Dye [Iodinated Contrast Media - IV Dye] Allergy (Verified 03/01/19 17:) started having [place] Penicillins Allergy (Verified 03/01/19 17:) Rash Sulfa (Sulfonamide Antibiotics) Allergy (Verified 03/01/19) Rash amlodipine Adverse Reaction (Verified 03/01/19 17) nausea, htn, headaches ciprofloxacin [From Cipro] Adverse Reaction (Verified 03/01/19 17:) stomach problems ciprofloxacin HCl [From Cipro] Adverse Reaction (Verified 03/01/19 17) stomach problems hydromorphone HCl [From Dilaudid] Adverse Reaction (Verified 03/01/19 17:31) headache nitrofurantoin [From Macrobid] Adverse Reaction (Verified 03/01/19 17:) doesn't work nitrofurantoin macrocrystalline [From Macrobid] Adverse Reaction (Verified 03/01/19 17:31) doesn't work pramipexole Adverse Reaction (Verified 03/01/19 17:31) stomach problems sucralfate Adverse Reaction (Verified 03/01/19 17:31) can't swallow Medications to take at Discharge Calcium Carbonate/Vitamin D3 [Calcium 600-Vit D3 200 Tablet] 1 each PO DAILY 04/02/18 Cholecalciferol (Vitamin D3) [Vitamin D3] 100,000 unit PO FR 04/02/18 Cyclobenzaprine [Flexeril] 10 mg PO QHS 04/02/18 Hydrocodone/Acetaminophen [[place] 5-325 Tablet] 1 each PO BID 04/02/18 Lisinopril [Prinivil] 10 mg PO QHS 04/02/18 Omeprazole [Prilosec] 40 mg PO DAILY 04/02/18 Potassium Citrate [Potassium Citrate ER] 10 mg PO BID 04/02/18 Gabapentin [Neurontin] 300 mg PO BID 01/22/19 Propranolol HCl ER 60 mg PO QHS 03/04/19 Sertraline HCl [Zoloft] 25 mg PO DAILY 03/04/19 Cefdinir 300 mg PO BID #10 capsule 03/05/19 Loperamide [Imodium] 2 mg PO Q2H PRN PRN #20 capsule 03/05/19 The following prescriptions were given: Loperamide [Imodium] 2 mg PO Q2H PRN PRN #20 capsule PRN Reason: Diarrhea Cefdinir 300 mg PO BID #10 capsule Primary Care Physician: Antonio Mackey MD [Primary Care Provider] - Please follow up with your Primary Care Physician in: one week Test Results: Test results from this visit will be discussed in further detail at your follow-up appointment, if applicable. Proposed Discharge Date: 03/05/19
--- NOTE | 2019-03-05 11:51 | PCM.DC.SUM ---
Discharge Date and Diagnosis - Problem List Patient Problems: Active and Suspected Problems Acute gastroenterocolitis (Acute) UTI (urinary tract infection) (Acute) Date of Admission: 03/04/19 Date of Discharge: 03/05/19 - Primary Discharge Diagnosis Active and Suspected Problems Acute gastroenterocolitis (Acute) UTI (urinary tract infection) (Acute) - Secondary Discharge Diagnosis Chronic Problems Suprapubic catheter (Chronic) Abdominal wall ulcer (Chronic) History of tobacco use (Chronic) History of bladder cancer (Chronic) History of kidney stones (Chronic) GERD (gastroesophageal reflux disease) (Chronic) Chronic low back pain (Chronic) Hospital Course and Treatment Imaging Results: Diagnostic Data Abdomen/Pelvis CT 03/04/19 17:11 IMPRESSION: No definite acute abnormality. No definite obstruction. Segments of bowel wall thickening/enteritis/colitis are not excluded. Complex right abdominal wall hernias containing loops of bowel but without evidence for obstruction. The ileal conduit is seen within a moderate-sized right inguinal hernia also present previously. Electronically Signed: Norberto Jean MD at 18:25 EDT , Service support , Chest X-Ray 03/04/19 17:15 IMPRESSION: Stable, nonacute portable x-ray examination of the chest. Electronically Signed: Yamil Felix MD at 17:27 EDT , Service support , Consultations 03/04/19 19:30 Consult: Onc/Wound/sash maker Routine Comment: Operations: None Procedures: None Summary of Care Provided: The patient is a 69 year old F with a past medical history as listed was admitted with a complaint of nausea, fever and diarrhea for 2 days prior to admission. She has fever of 101.1F. She also had leucocytosis of 14,000, and had left shift and 81% neutrophils. UA was positive for UTI, with positive pyuria and leucocyte esterase as well as 1+ bacteria. She was admitted and managed for acute gastroenteritis and UTI. C DIff was negative. Urine culture was positive for E coli. Diarrhea and vomiting resolved after she was started on IV ceftriaxone and flagyl. SHe remained stable, and was discharged home on 03/05/19. She was discharged home on PO cefdinir for 5 days. She is to follow up with her PCP in one week. Patient seen and examined prior to discharge. She has no complaints and feels well, and wanted to be discharged. REview of systems was otherwise negative. Labs and vitals reviewed. Home medications reviewed and reconciled. o/e: Vital Signs Height 5 ft 3 in Weight: 172 lb 2.896 oz Weight in Pounds 172.2 lbs Pulse Ox 96 Temperature 98.0 F Pulse Rate 50 Respiratory Rate 18 Blood Pressure [BP] 149/74 Blood Pressure 183/83 Blood Pressure Position [BP] Semi-Fowlers Blood Pressure Position Semi-Fowlers [] General: Alert, Oriented x3, Cooperative HEENT: Atraumatic, PERRLA, EOMI, Normocephalic Oral: moist mucosa Neck: Supple, No JVD, Negative Carotid Bruits Lungs: Clear to auscultation, Normal air movement, No rhonchi, No wheeze, No rales Cardiovascular: Regular rate, Regular Rhythm, Normal S1, Normal S2, No murmurs Abdomen: Bowel Sounds Present, Soft, Non Tender, Non-Distended, - - Parastomal hernia present around the ilial conduit. Extremities: No edema, Capillary Refill Less than 3 Seconds Skin: No rashes, No breakdown Musculoskeletal: No Tenderness to Palpation of Joints or Extremities, Arthritic Changes Neurological: Cranial nerves II-XII grossly intact Psych/Mental Status: Normal Affect, Appropriate Plan as above Patient Problems: Active and Suspected Problems Acute gastroenterocolitis (Acute) UTI (urinary tract infection) (Acute) - Physical Exam Vital Signs Temp Pulse Resp BP Pulse Ox 98.0 F 50 L 18 149/74 H 96 03/05/19 09:20 03/05/19 11:16 03/05/19 09:20 03/05/19 11:16 03/05/19 09:20 Oxygen Delivery Method Room Air Weight: 172 lb 2.896 oz Body Mass Index (BMI) 30.4 Intake and Output for Last 24 Hours 03/03/19 03/04/19 03/05/19 23:59 23:59 23:59 Intake Total 1584 / 1584 Output Total 1100 / 1100 Balance 484 / 484 Microbiology Past 72 Hours 03/05/19 03:00 C. difficile DNA Amplification - Final Stool 03/05/19 03:00 Stool Occult Blood (DEMARCUS) - Final Stool 03/05/19 03:00 Stool Lactoferrin - Final Stool Laboratory Tests Past 24 Hrs 03/04/19 03/04/19 03/04/19 17:00 17:00 17:00 WBC 13.9 H RBC 4.99 Hgb 14.1 Hct 43.0 MCV 86.2 MCH 28.3 MCHC 32.8 RDW 15.8 H RDW Differential 50.1 H Plt Count 282 MPV 9.4 Immature Gran % (Auto) 0.200 Neut % (Auto) 81.2 H Lymph % (Auto) 7.7 L [place] % (Auto) 10.2 H Eos % (Auto) 0.6 Baso % (Auto) 0.1 Absolute Neuts (auto) 11.3 H Absolute Lymphs (auto) 1.07 Total Counted Not Reportable PT INR APTT Sodium 140 Potassium 3.7 Chloride 107 Carbon Dioxide 25.0 Anion Gap 8 BUN 13 Creatinine 0.93 Estim Creat Clear Calc 47.89 Est GFR (MDRD) Af Amer 77 Est GFR (MDRD) Non-Af 63 BUN/Creatinine Ratio 13.9 Glucose 107 H Lactic Acid 0.8 Calcium 8.9 Magnesium Total Bilirubin 0.60 AST 16 ALT 16 Alkaline Phosphatase 120 H Troponin I < 0.015 Total Protein 7.3 Albumin 3.4 Globulin 3.9 Albumin/Globulin Ratio 0.9 Urine Color Urine Clarity Urine pH Ur Specific [place] Urine Protein Urine Glucose (UA) Urine Ketones Urine Occult Blood Urine Nitrite Urine Bilirubin Urine Urobilinogen Ur Leukocyte Esterase Urine RBC Urine WBC Ur Squamous Epith Cells Triple Phos Crystals Amorphous Sediment Urine Bacteria Urine Mucus 03/04/19 03/04/19 03/04/19 17:00 17:31 17:45 WBC RBC Hgb Hct MCV MCH MCHC RDW RDW Differential Plt Count MPV Immature Gran % (Auto) Neut % (Auto) Lymph % (Auto) [place] % (Auto) Eos % (Auto) Baso % (Auto) Absolute Neuts (auto) Absolute Lymphs (auto) Total Counted PT 13.1 INR 1.0 APTT 24.7 Sodium Potassium Chloride Carbon Dioxide Anion Gap BUN Creatinine Estim Creat Clear Calc Est GFR (MDRD) Af Amer Est GFR (MDRD) Non-Af BUN/Creatinine Ratio Glucose Lactic Acid Calcium Magnesium 1.9 Total Bilirubin AST ALT Alkaline Phosphatase Troponin I Total Protein Albumin Globulin Albumin/Globulin Ratio Urine Color Yellow Urine Clarity Turbid Urine pH 8.0 Ur Specific [place] 1.010 Urine Protein 30 H Urine Glucose (UA) Normal Urine Ketones 15 H Urine Occult Blood 50 H Urine Nitrite Negative Urine Bilirubin Negative Urine Urobilinogen Normal Ur Leukocyte Esterase 25 H Urine RBC 0 SEEN Urine WBC 10-25 SEEN Ur Squamous Epith Cells 0 SEEN Triple Phos Crystals RARE Amorphous Sediment 2+ Urine Bacteria 1+ Urine Mucus 0 SEEN 03/05/19 03/05/19 05:20 05:20 WBC 11.1 H RBC 4.55 Hgb 12.9 Hct 39.8 MCV 87.5 MCH 28.4 MCHC 32.4 RDW 16.1 H RDW Differential 50.8 H Plt Count 244 MPV 9.6 Immature Gran % (Auto) 0.200 Neut % (Auto) 78.7 H Lymph % (Auto) 10.0 L [place] % (Auto) 10.5 H Eos % (Auto) 0.4 Baso % (Auto) 0.2 Absolute Neuts (auto) 8.8 H Absolute Lymphs (auto) 1.11 Total Counted Not Reportable PT INR APTT Sodium 142 Potassium 3.3 L Chloride 112 H Carbon Dioxide 24.0 Anion Gap 6 BUN 14 Creatinine 0.89 Estim Creat Clear Calc 50.04 Est GFR (MDRD) Af Amer 81 Est GFR (MDRD) Non-Af 67 BUN/Creatinine Ratio 15.7 Glucose 105 Lactic Acid Calcium 8.2 L Magnesium Total Bilirubin AST ALT Alkaline Phosphatase Troponin I Total Protein Albumin Globulin Albumin/Globulin Ratio Urine Color Urine Clarity Urine pH Ur Specific [place] Urine Protein Urine Glucose (UA) Urine Ketones Urine Occult Blood Urine Nitrite Urine Bilirubin Urine Urobilinogen Ur Leukocyte Esterase Urine RBC Urine WBC Ur Squamous Epith Cells Triple Phos Crystals Amorphous Sediment Urine Bacteria Urine Mucus Discharge Activity: Return to Normal Activity Weight Bearing Status: Weight bearing as tolerated Call your doctor if you observe: Fever of 101 or Higher, Shortness of breath, Uncontrolled pain Home Medications: Medications to take at Discharge Calcium Carbonate/Vitamin D3 [Calcium 600-Vit D3 200 Tablet] 1 each PO DAILY 04/02/18 Cholecalciferol (Vitamin D3) [Vitamin D3] 100,000 unit PO FR 04/02/18 Cyclobenzaprine [Flexeril] 10 mg PO QHS 04/02/18 Hydrocodone/Acetaminophen [[place] 5-325 Tablet] 1 each PO BID 04/02/18 Lisinopril [Prinivil] 10 mg PO QHS 04/02/18 Omeprazole [Prilosec] 40 mg PO DAILY 04/02/18 Potassium Citrate [Potassium Citrate ER] 10 mg PO BID 04/02/18 Gabapentin [Neurontin] 300 mg PO BID 01/22/19 Propranolol HCl ER 60 mg PO QHS 03/04/19 Sertraline HCl [Zoloft] 25 mg PO DAILY 03/04/19 Cefdinir 300 mg PO BID #10 capsule 03/05/19 Loperamide [Imodium] 2 mg PO Q2H PRN PRN #20 capsule 03/05/19 Following Prescrptions Were Given to Patient: Loperamide [Imodium] 2 mg PO Q2H PRN PRN #20 capsule PRN Reason: Diarrhea Cefdinir 300 mg PO BID #10 capsule Primary Care Physician: Antonio Mackey MD [Primary Care Provider] - Please follow up with your Primary Care Physician in: one week Patient Instructions: Understanding Urinary Tract Infections (UTIs) Disposition: Home Minutes spent on discharge:: 35 Patient Condition:: Stable Medical Necessity - Tobacco Use Smoking Status: Current every day smoker Meaningful Use Info Meaningful Use Diagnoses (Choose all that apply): None applicable Code Visit Inpatient E&M: 02146 [facility] Hosp
--- NOTE | 2019-03-06 13:47 | CASEMGMT ---
АЛЕКСАНДР ROSE DC PHONE CALL DC DATE: 03/05/19 DC Disposition: Home LACE/STRATA: 20/01 Intro role of CM to patient via home phone. Pt states she is feeling well, no questions re: instructions, prescriptions or f/u. Pt has appt with PCP made already. Kaela CHAVESN RN ACM
== END 2019-03-05 14:45 | disposition home or self-care (01) | DRG 392 ==
LOC: ED 17:28 → MS3 19:32
PROVIDERS: Admitting Provider Internal Medicine; Emergency Provider Emergency Medicine; Family Provider Family Medicine; PCP Family Medicine; Referring Provider Internal Medicine; Visit Provider Student in an Organized Health Care Education/Training Program
DX: K52.9 Noninfective gastroenteritis and colitis, unspecified (principal); N39.0 Urinary tract infection, site not specified; B96.20 Unspecified Escherichia coli [E. coli] as the cause of diseases classified elsewhere; I10 Essential (primary) hypertension; K21.9 Gastro-esophageal reflux disease without esophagitis; L98.499 Non-pressure chronic ulcer of skin of other sites with unspecified severity; M54.5 Low back pain; G89.29 Other chronic pain; F17.200 Nicotine dependence, unspecified, uncomplicated; Z90.6 Acquired absence of other parts of urinary tract; Z87.442 Personal history of urinary calculi; Z85.51 Personal history of malignant neoplasm of bladder; Z79.899 Other long term (current) drug therapy; Z66 Do not resuscitate; F43.29 Adjustment disorder with other symptoms; R51 Headache
CPT/HCPCS: 36415; 71045; 74176; 80048; 80053; 81001; 82274; 83605; 83630; 83735; 84484; 85025; 85610; 85730; 87040; 87077; 87086; 87088; 87186; 87493; 87506; 93005; 99285; 99406; J7030; A4216; J2405

== ENCOUNTER → 2019-04-13 12:37 | Outpatient (CLI) | payer MEDICARE, SELFPAY ==
[2019-03-04 19:53] VITALS: BMI 30.4
--- NOTE | 2019-04-13 12:39 | CT_ITS ---
STUDY: CT CHEST WITHOUT CONTRAST REASON FOR EXAM: Female, 69 years old. Lung nodules, history of smoking x43 years, history of bladder cancer RADIATION DOSAGE (If Supplied By Facility): CTDIvol = ( 8.39 ) mGy, DLP = ( 293.36 ) mGycm TECHNIQUE: Transaxial imaging was performed without the administration of intravenous contrast material. Individualized dose optimization techniques were used for this CT. COMPARISON: Previous study of 10/20/2018 FINDINGS: There is a stable 3 mm nodule of the left upper lobe image 40 series 4. There is a stable 2.4 mm nodule of the posterior left upper lobe image 47 series 4. There is a stable 3 mm nodule of the posterior left upper lobe image 49 series 4. There is a stable 5.5 mm nodule of the anterior left lower lobe image 90 series 4. There is a stable 6.2 mm nodule of the right lower lobe image 87 series 4. No new or additional nodules are evident. There is no demonstrated pleural abnormality. The heart size is normal. Coronary arterial calcifications are present. There is no pericardial effusion. Normal mediastinum. Normal hilar regions. Normal unenhanced pulmonary arteries. There are calcified plaques of the thoracic aorta. There are diffuse degenerative changes of the visualized thoracolumbar spine. There is a low-attenuation left adrenal mass measuring 2.[address]/Chest without Contrast IMPRESSION: Stable bilateral pulmonary nodules. No new nodules are evident. Coronary arterial calcifications are present. Calcified plaques of the thoracic aorta. Diffuse degenerative changes of the visualized thoracolumbar spine. Low-attenuation left adrenal mass measuring 2.0 x 2.0 cm, stable in the interval. This most likely represents an adenoma. Electronically Signed: Joesph Aguila MD at 18:06 EDT , Service support ,
== END ==
PROVIDERS: Family Provider Family Medicine; PCP Family Medicine; Referring Provider Family Medicine; Visit Provider Family Medicine
DX: R91.8 Other nonspecific abnormal finding of lung field (principal)
CPT/HCPCS: 71250

== ENCOUNTER 2019-04-15 15:18 | Emergency (ER) | payer MEDICARE, SELFPAY ==
[2019-03-04 19:53] VITALS: BMI 30.4
[2019-04-15 15:20] VITALS: BP 165/85; PULSE 60; RESP 16; TEMP 36.8; O2SAT 97; BMI 28.2
--- NOTE | 2019-04-15 15:32 | NURSING ---
HAS WILMER AND TOSHA
--- NOTE | 2019-04-15 16:00 | EKG12_ITS ---
Test Reason : DIZZINESS Blood Pressure : / mmHG Vent. Rate : 058 BPM Atrial Rate : 058 BPM P-R Int : 174 ms QRS Dur : 074 ms QT Int : 430 ms P-R-T Axes : 062 050 066 degrees QTc Int : 422 ms Sinus bradycardia Otherwise normal ECG Confirmed by RORY VORA, PALMER ([id number]), editor & co founder KENDALL CAZARES ([id number] on 04/19/2019 11:52:05 AM Referred By: Antonio Mackey Confirmed By:PALMER VALADEZ MD
--- NOTE | 2019-04-15 16:01 | ED.VIS.GEN ---
History of Present Illness Chief Complaint: Dizziness Detail of Chief Complaint: Vertigo and nausea Informant: Patient Onset: Today Quality: Spinning Current Severity: Mild Maximum Severity: Moderate Worsened by: Movement Narrative: Patient states she woke at 3 AM this morning with sensation of everything moving. She has had some nausea and a mild headache. She states she did have benign positional vertigo approximately 8 or 9 months ago with similar symptoms. She denies any recent head injury. - Past Medical History (1) Chronic low back pain Status: Chronic (2) GERD (gastroesophageal reflux disease) Status: Chronic (3) History of bladder cancer Status: Chronic (4) History of kidney stones Status: Chronic Past Medical History - Allergies and Home Meds Allergies/Adverse Reactions: Allergies Iodinated Contrast- Oral and IV Dye [Iodinated Contrast Media - IV Dye] Allergy (Verified 04/15/19 15:20) started having [place] Penicillins Allergy (Verified 04/15/19 15:20) Rash Sulfa (Sulfonamide Antibiotics) Allergy (Verified 04/15/19 15:20) Rash amlodipine Adverse Reaction (Verified 04/15/19 15:20) nausea, htn, headaches ciprofloxacin [From Cipro] Adverse Reaction (Verified 04/15/19 15:20) stomach problems ciprofloxacin HCl [From Cipro] Adverse Reaction (Verified 04/15/19 15:20) stomach problems hydromorphone HCl [From Dilaudid] Adverse Reaction (Verified 04/15/19 15:20) headache nitrofurantoin [From Macrobid] Adverse Reaction (Verified 04/15/19 15:20) doesn't work nitrofurantoin macrocrystalline [From Macrobid] Adverse Reaction (Verified 04/15/19 15:20) doesn't work pramipexole Adverse Reaction (Verified 04/15/19 15:20) stomach problems sucralfate Adverse Reaction (Verified 04/15/19 15:20) can't swallow Primary Care Physician: Antonio Mackey MD [Primary Care Provider] - Prior records reviewed: Yes Past Medical History: - - Reviewed Surgical History: cholecystectomy, herniorrhaphy, - - Removal of bladder with reconstruction. The surgery was 20 years ago. Smoking Status: Current every day smoker - Family History Maternal Family History: Reports: No pertinent history Review of Systems General: Denies: Chills, Fever Eyes: Denies: Visual changes - bilaterally, Blurred Vision - bilaterally ENT: Reports: Right ear pain Cardiovascular: Denies: Chest pain, Palpitations, Heart racing Respiratory: Denies: Dyspnea, Cough Gastrointestinal: Reports: Nausea. Denies: Abdominal pain, Vomiting Neurological: Reports: Headache Physical Exam Vital Signs/Narrative: Vital Signs Temp Pulse Resp BP Pulse Ox 04/15/19 15:20 98.3 F 60 16 165/85 H 97 General: Well nourished, Well developed Head: Normocephalic Eyes: Perrl, EOMI, - - Mild nystagmus. ENT: Moist mucous membranes, No rhinorrhea Neck: Supple Cardiovascular: Regular rate, Regular rhythm Respiratory: No distress, CTA bilaterally Abdomen: Soft, Nontender, Normal bowel sounds Skin: Normal color, No rash Neurological: Alert, Oriented x3, Normal Strength, Normal Sensation Psychological: Normal affect Diagnostic/Tx/Re-eval Abnormal Lab Results 04/15/19 04/15/19 15:39 15:39 WBC 7.4 RBC 4.47 Hgb 12.5 Hct 39.3 MCV 87.9 MCH 28.0 MCHC 31.8 L RDW 14.9 H RDW Differential 48.2 H Plt Count 250 MPV 9.7 Immature Gran % (Auto) 0.100 Neut % (Auto) 68.9 Lymph % (Auto) 20.1 [place] % (Auto) 8.5 Eos % (Auto) 2.0 Baso % (Auto) 0.4 Absolute Neuts (auto) 5.1 Absolute Lymphs (auto) 1.49 Total Counted Not Reportable Sodium 141 Potassium 4.0 Chloride 113 H Carbon Dioxide 25.0 Anion Gap 3 L BUN 14 Creatinine 0.80 Estim Creat Clear Calc 55.68 Est GFR (MDRD) Af Amer 92 Est GFR (MDRD) Non-Af 76 BUN/Creatinine Ratio 17.5 Glucose 104 Calcium 8.9 - EKG Initial EKG Interpretation: - - Sinus bradycardia at 58 bpm with no sign of acute ischemia. - Medical Decision Making Patient was given p.o. Antivert. On repeat evaluation she feels significantly improved. She be given a prescription for the same. ED Disposition - Plan for ED Patient: Disposition: Home or Assisted Living Diagnosis: Vertigo Instructions: Benign Positional Vertigo Prescriptions: Meclizine HCl [Antivert] 25 mg PO 4X/DAY PRN PRN #20 tablet PRN Reason: Dizziness Referrals: Antonio Mackey MD [Primary Care Provider] - 3-5 Days if not improving
[2019-04-15 16:23] LABS: Absolute Lymphocyte Count 1.49 X10^3/ul (0.83-4.51); Absolute Neutrophil Count 5.1 X10^3/uL (2.0-7.7); Basophil# 0.03 X10^3/uL; Basophil% 0.4 % (0-1); Eosinophil# 0.15 X10^3/uL; Hematocrit 39.3 % (37-47); Hemoglobin 12.5 g/dl (12.0-15.0); Lymphocyte # 1.49 X10^3/ul (4.0); Lymphocyte % 20.1 % (19-41); Mean Corp Hgb Conc 31.8 g/gl (32-36); Mean Corpuscular Volume 87.9 fL (81-99); Mean Platelet Vol. 9.7 fl (6.2-12.0); Monocyte# 0.63 X10^3/uL; Monocyte% 8.5 % (0-10); Neutrophil # 5.11 X10^3/uL (2.7-7.7); Neutrophil % 68.9 % (47-70); Platelet Count 250 K/mm3 (150-450); RBC Distribution Width CV 14.9 % (11.6-14.6); RBC Distribution Width SD 48.2 fl (35.1-43.9); Red Blood Count 4.47 M/mm3 (4.2-5.4); White Blood Count 7.4 K/mm3 (4.4-11.0)
[2019-04-15 16:27] LABS: POSITIVE COUNT NO; POSITIVE DIFFERENTIAL NO; POSITIVE MORPHOLOGY NO
[2019-04-15 16:40] LABS: Anion Gap 3 (5-15); BUN 14 mg/dL (7-18); BUN/Creat Ratio 17.5 RATIO (10-20); Calcium,Total 8.9 mg/dL (8.5-10.1); Chloride 113 mmol/L (98-107); EST Glomerular Filtration Rate 76 mL/min (>60); Est Glom Filt Rate - Afr Amer 92 mL/min (>60); Estimated Creatinine Clearance 55.68 ml/min; Glucose 104 mg/dL (74-106); Sodium Level 141 mmol/L (136-145)
[2019-04-15] MEDS: Meclizine HCl 25 MG Tablet PO (16:40)
[2019-04-15] MEDS: 0.9% Normal Saline 1,000 ML 150 ML IV (16:40)
[2019-04-15 17:49] VITALS: PULSE 57; RESP 21; O2SAT 97
[2019-04-15 18:24] VITALS: PULSE 58; RESP 22
== END 2019-04-15 18:25 | disposition home or self-care (01) ==
PROVIDERS: Emergency Provider Emergency Medicine; Family Provider Family Medicine; PCP Family Medicine
DX: R42 Dizziness and giddiness (principal); F17.200 Nicotine dependence, unspecified, uncomplicated; K21.9 Gastro-esophageal reflux disease without esophagitis; Z79.899 Other long term (current) drug therapy
CPT/HCPCS: 80048; 85025; 93005; 96360; 96361; 99285; J7030; A4216

== ENCOUNTER → 2019-05-02 13:56 | Outpatient (CLI) | payer MEDICARE, SELFPAY ==
[2019-04-15 15:20] VITALS: BMI 28.2
--- NOTE | 2019-05-02 14:00 | RAD_ITS ---
STUDY: X-RAY - LEFT HAND REASON FOR EXAM: Female, 69 years old. Osteoarthritis TECHNIQUE: 3 view(s) of the hand. COMPARISON: None. FINDINGS: Normal radiocarpal articulation. Normal distal radioulnar joint. There is chondrocalcinosis in the region of the triangular fibrocartilage complex. There is diffuse demineralization of the bones. There is mild degenerative joint disease of the scaphotrapezium / trapezoid articulation. The remainder of the carpal articulations are normal. Normal carpometacarpal articulation of the thumb. Normal second through fifth carpometacarpal joints. Normal metacarpi. Normal metacarpophalangeal joint of the thumb. Normal interphalangeal joint of the thumb. Normal proximal and distal phalanges of the thumb. Normal metacarpophalangeal joints of the second through fifth fingers. Normal proximal and distal interphalangeal joints of the second through fifth fingers. Normal phalanges of the second through fifth fingers. The soft tissue structures are unremarkable. There is no acute fracture. RAD/Hand Min 3 Views IMPRESSION: Demineralization. No focal erosions seen. Electronically Signed: Matheus Juárez MD at 15:13 EDT , Service support ,
--- NOTE | 2019-05-02 14:00 | RAD_ITS ---
STUDY: X-RAY - LEFT WRIST REASON FOR EXAM: Female, 69 years old. Osteoarthritis TECHNIQUE: 3 view(s) of the wrist were obtained. COMPARISON: None. FINDINGS: Normal visualized distal radius and ulna. Mild radiocarpal osteoarthritis. Normal distal radioulnar articulation. Normal carpal bones. Normal carpal articulations. Normal carpometacarpal articulation of the thumb. Normal second through fifth carpometacarpal articulations. Normal visualized metacarpal bones. Calcifications of the triangle fibrocartilage. RAD/Wrist min 3 Views IMPRESSION: Mild radiocarpal osteoarthritis. Calcifications of the triangle fibrocartilage. Electronically Signed: Jordon Kaba MD at 14:50 EDT Tel , Service support ,
--- NOTE | 2019-05-02 14:00 | RAD_ITS ---
STUDY: X-RAY - RIGHT WRIST REASON FOR EXAM: Female, 69 years old. Osteoarthritis. TECHNIQUE: 3 view(s) of the wrist were obtained. COMPARISON: Right hand, May 02, 2019. Right hand, December 02, 2018. FINDINGS: There is demineralization of the radius and ulna. There is degenerative arthrosis of the radiocarpal articulation. There is degenerative arthrosis of the distal radioulnar articulation. There is demineralization of the carpal bones. There is degenerative arthrosis of the carpal articulations. Normal carpometacarpal articulation of the thumb. Normal second through fifth carpometacarpal articulations. There is demineralization of the metacarpal bones. The soft tissue structures are unremarkable. RAD/Wrist min 3 Views IMPRESSION: Osteopenia and degenerative changes of the right wrist essentially unchanged from December 02, 2089 Electronically Signed: Octavio Maya DO at 14:58 EDT Tel [phone], Service support ,
--- NOTE | 2019-05-02 14:00 | RAD_ITS ---
STUDY: X-RAY - RIGHT HAND REASON FOR EXAM: Female, 69 years old. Osteoarthritis. TECHNIQUE: 3 view(s) of the hand. COMPARISON: December 02, 2018. FINDINGS: There is generalized osteopenia. There is joint space narrowing of the radiocarpal articulation consistent with degenerative arthrosis. There is degenerative changes of the distal radioulnar joint. Normal visualized carpal bones. There is degenerative joint disease of the scaphotrapezium / trapezoid articulation. The remainder of the carpal articulations are normal. Normal carpometacarpal articulation of the thumb. Normal second through fifth carpometacarpal joints. Normal metacarpi. There is degenerative arthrosis of the first metacarpophalangeal (MCP) joint. Normal interphalangeal joint of the thumb. Normal proximal and distal phalanges of the thumb. Normal metacarpophalangeal joints of the second through fifth fingers. There is mild diffuse articular joint space narrowing of the proximal and distal interphalangeal joints of the second through fifth fingers, but without erosive changes or periarticular soft tissue swelling. Normal phalanges of the second through fifth fingers. The soft tissue structures are unremarkable. RAD/Hand Min 3 Views IMPRESSION: Osteopenia and degenerative changes of the right hand. Electronically Signed: Octavio Maya DO at 14:56 EDT Tel [phone], Service support ,
== END ==
PROVIDERS: Family Provider Family Medicine; PCP Family Medicine; Referring Provider Family Medicine; Visit Provider Family Medicine
DX: M19.232 Secondary osteoarthritis, left wrist (principal); M19.231 Secondary osteoarthritis, right wrist; M19.042 Primary osteoarthritis, left hand; M19.041 Primary osteoarthritis, right hand
CPT/HCPCS: 73110; 73130

== ENCOUNTER → 2019-05-29 12:16 | Outpatient (CLI) | payer MEDICARE, SELFPAY ==
[2019-05-29 13:15] LABS: Amphetamine Urine VISTA NEGATIVE (<1000 ng/mL); Barbiturate Urine VISTA NEGATIVE (< 200 ng/mL); Benzodiazepine Urine VISTA NEGATIVE (< 200 ng/mL); Cocaine Urine VISTA NEGATIVE (< 300 ng/mL); Ecstacy Urine VISTA NEGATIVE (< 500 ng/mL); Methadone Urine VISTA NEGATIVE (< 300 ng/mL); PCP Urine VISTA NEGATIVE (< 25 ng/mL); THC Urine VISTA NEGATIVE (< 50 ng/mL); Vista UDS pH Range 7
== END ==
PROVIDERS: Family Provider Family Medicine; PCP Family Medicine; Referring Provider Anesthesiology Pain Medicine; Visit Provider Anesthesiology Pain Medicine
DX: F11.20 Opioid dependence, uncomplicated (principal)
CPT/HCPCS: 80307

== ENCOUNTER 2019-06-19 15:36 | Emergency (ER) | payer MEDICARE, SELFPAY ==
[2019-06-19 15:38] VITALS: BP 174/69; PULSE 55; RESP 17; RESP 18; TEMP 37.3; O2SAT 97; BMI 27.0
--- NOTE | 2019-06-19 16:05 | VDLE_ITS ---
Reason For Study: edema RIGHT LEFT GSV is normal. GSV is normal. CFV is compressible, spontaneous, phasic, CFV is compressible, spontaneous, phasic, competent and demonstrates normal competent, and demonstrates normal augmentation. augmentation. FV is compressible, spontaneous, phasic, FV is compressible, spontaneous, phasic, competent and demonstrates normal competent and demonstrates normal augmentation. augmentation. POP V is compressible, spontaneous, phasic, POP V is compressible, spontaneous, phasic, competent and demonstrates normal competent and demonstrates normal augmentation. augmentation. T/P Trunk is compressible. T/P Trunk is compressible. PTV is compressible. PTV is compressible. RT PerV is compressible. LT PerV is compressible. Procedure Exam performed portable in ED. The exam was diagnostic. A preliminary report was called and/or faxed to Dr. Chamberlain. Interpretation Summary Deep veins of the lower extremities are bilaterally patent and compressible segmentally. There is no evidence of deep vein thrombosis on either side. Valvular competence appears intact within the proximal deep venous systems bilaterally. The great saphenous veins appear bilaterally patent and compressible segmentally. Ordering Physician: Sonali Chamberlain Performed By: Joo Combs RVT
--- NOTE | 2019-06-19 16:06 | EKG12_ITS ---
Test Reason : EDEMA Blood Pressure : / mmHG Vent. Rate : 051 BPM Atrial Rate : 051 BPM P-R Int : 174 ms QRS Dur : 074 ms QT Int : 486 ms P-R-T Axes : 065 054 060 degrees QTc Int : 447 ms Sinus bradycardia Otherwise normal ECG Confirmed by ANGELICA TRIVEDI ([id number]), graphic editor KENDALL CAZARES ([id number]) on 06/25/2019 2:06:23 PM Referred By: QUINN Confirmed By:ANGELICA TRIVEDI
--- NOTE | 2019-06-19 16:06 | RAD_ITS ---
STUDY: X-RAY CHEST REASON FOR EXAM: Female, 69 years old. Edema lower extremities wheezing TECHNIQUE: PA and lateral views of the chest. COMPARISON: March 04, 2019 chest x-ray FINDINGS: The lungs are clear and expanded. There is no demonstrated pleural abnormality. There is borderline cardiac enlargement. Normal mediastinum and abdirahman. Normal visualized pulmonary arteries. There is atherosclerotic tortuosity of the aortic arch and descending thoracic aorta. Normal visualized thoracic spine. Normal visualized ribs, clavicles, and shoulders. There is no demonstrated abnormality of the visualized soft tissue structures of the upper abdomen. RAD/Chest PA and Lateral IMPRESSION: Borderline cardiomegaly. No evidence of acute focal infiltrate. Electronically Signed: Belén Strickland MD at 17:01 EDT Tel , Service support ,
--- NOTE | 2019-06-19 16:08 | ED.DCSUM_ITS ---
History of Present Illness Chief Complaint: Edema Informant: Patient Onset: Days - 3 Context: Gradual Onset Timing: Continuous Narrative: Is a 69-year-old female with history of bladder cancer status post bladder removal, chronic back pain and hypertension presenting from home for 3 days of worsening lower extremity edema. Patient states she is never had swelling in her legs like this before. She denies any associated pain. She denies any chest pain, cough, shortness of breath or dyspnea on exertion. She does not feel like she has been on her feet more than normal. Patient denies any history of blood clots or heart failure. She denies any recent travel or immobilization. She denies any injuries. She denies any fever or chills. She notes that she has been feeling unwell but cannot be more descriptive than that. She denies any other complaints at this time. Past Medical History - Allergies and Home Meds Allergies/Adverse Reactions: Allergies Iodinated Contrast Media [Iodinated Contrast Media - IV Dye] Allergy (Verified 06/19/19 15:38) started having [place] Penicillins Allergy (Verified 06/19/19 15:38) Rash Sulfa (Sulfonamide Antibiotics) Allergy (Verified 06/19/19 15:38) Rash amlodipine Adverse Reaction (Verified 06/19/19 15:38) nausea, htn, headaches ciprofloxacin [From Cipro] Adverse Reaction (Verified 06/19/19 15:38) stomach problems ciprofloxacin HCl [From Cipro] Adverse Reaction (Verified 06/19/19 15:38) stomach problems hydromorphone HCl [From Dilaudid] Adverse Reaction (Verified 06/19/19 15:38) headache nitrofurantoin [From Macrobid] Adverse Reaction (Verified 06/19/19 15:38) doesn't work nitrofurantoin macrocrystalline [From Macrobid] Adverse Reaction (Verified 06/19/19 15:38) doesn't work pramipexole Adverse Reaction (Verified 06/19/19 15:38) stomach problems sucralfate Adverse Reaction (Verified 06/19/19 15:38) can't swallow Primary Care Physician: Antonio Mackey MD [Primary Care Provider] - Past Medical History: - - History of bladder cancer, chronic back pain, GERD, hypertension Surgical History: cholecystectomy, herniorrhaphy, - - Removal of bladder with reconstruction. The surgery was 20 years ago. Smoking Status: Current every day smoker - Family History Maternal Family History: Reports: No pertinent history Review of Systems All systems negative except as indicated General: Reports: Malaise. Denies: Chills, Fever Musculoskeletal: Reports: - - Extremity edema, bilateral Physical Exam Vital Signs/Narrative: Vital Signs Temp Pulse Resp BP Pulse Ox 06/19/19 15:38 99.1 F 55 L 18 174/69 H 97 Inital Vital Signs reviewed: Yes General: Well nourished, Well developed, No Acute Distress Head: Normocephalic, Atraumatic Eyes: Perrl, EOMI ENT: Moist mucous membranes, No rhinorrhea Neck: Supple, Nontender, No JVD Cardiovascular: Regular rate, Regular rhythm, No murmurs Respiratory: No distress, CTA bilaterally, Chest nontender Abdomen: Soft, Nontender, Nondistended, Normal bowel sounds, - - SupraPubic Sol catheter in place Back: Nontender, Normal Inspection. Negative for: CVA tenderness Extremities: Nontender, Edema - 1+ bilateral pedal edema. Negative for: Calf Tenderness Skin: Normal color, No rash Neurological: Alert, Oriented x3, Cranial nerves II-XII grossly intact, Normal Strength, Normal Sensation Psychological: Normal affect, Normal Mood Diagnostic/Tx/Re-eval Clinical Impression(s) from Imaging Studies Chest X-Ray 06/19/19 16:06 IMPRESSION: Borderline cardiomegaly. No evidence of acute focal infiltrate. Electronically Signed: Belén Strickland MD at 17:01 EDT Tel , Service support , Laboratory Data 06/19/19 06/19/19 06/19/19 16:30 16:30 17:30 WBC 8.0 RBC 4.26 Hgb 11.7 L Hct 37.2 MCV 87.3 MCH 27.5 MCHC 31.5 L RDW Std Deviation 47.8 H RDW Coeff of Kevin 14.9 H Plt Count 249 MPV 9.5 Sodium 140 Potassium 4.4 Chloride 108 H Carbon Dioxide 30.0 Anion Gap 2 L BUN 14 Creatinine 0.91 Estim Creat Clear Calc 48.95 Est GFR (MDRD) Af Amer 79 Est GFR (MDRD) Non-Af 65 BUN/Creatinine Ratio 15.4 Glucose 93 Calcium 9.1 TSH 1.01 Urine Color Yellow Urine Clarity Sl. Cloudy Urine pH 8.0 Ur Specific Century 1.010 Urine Protein Negative Urine Glucose (UA) Normal Urine Ketones Negative Urine Occult Blood 10 H Urine Nitrite Positive H Urine Bilirubin Negative Urine Urobilinogen Normal Ur Leukocyte Esterase 100 H Urine RBC 0-5 SEEN Urine WBC 5-10 SEEN Ur Squamous Epith Cells 0-5 SEEN Urine Bacteria RARE Urine Mucus 0 SEEN Diagnostic Data Chest X-Ray 06/19/19 16:06 IMPRESSION: Borderline cardiomegaly. No evidence of acute focal infiltrate. Electronically Signed: Belén Strickland MD at 17:01 EDT Tel , Service support , - Rhythm Strip Rhythm Strip: Sinus Rhythm Rate: 51 Ectopy: None - EKG Initial EKG Interpretation: Sinus Bradycardia, - - No ST segment abnormalities - Medical Decision Making Is evaluated for concern of worsening lower extremity edema over the past few days. She also states she is generally not been feeling well. She appears nontoxic in no acute distress. Patient only has minimal edema. She does not have any physical exam findings consistent with congestive heart failure. Chest x-ray does not show any significant pulmonary vascular congestion. I suspect this edema is more of dependent edema. She notes that she has been doing laundry and has been on her feet more than normal. While she is in the ER and has her feet elevated she feels that her symptoms have improved. Because of her complaint of malaise, a urinalysis is obtained. Patient does have nitrites and leuk esterase. She will be treated with Keflex which she states she is tolerated in the past. Urine culture is sent patient does have a suprapubic catheter in chronically. Patient is counseled on signs and symptoms requiring return to the emergency room. Patient verbalizes agreement and understand this plan. Patient discharged home in stable and improved condition. ED Disposition - Plan for ED Patient: Disposition: Home or Assisted Living Diagnosis: Edema, UTI (urinary tract infection) Instructions: Understanding Urinary Tract Infections (UTIs), ED Peripheral Edema, Bilateral Prescriptions: Cephalexin [Keflex] 500 mg PO Q12 7 Days #14 cap Prescription Printed Referrals: Antonio Mackey MD [Primary Care Provider] - Additional Instructions: Return to the emergency room if you develop worsening symptoms. Keep your legs elevated. Follow-up with your primary care provider.
[2019-06-19 16:38] LABS: Hematocrit 37.2 % (37-47); Hemoglobin 11.7 g/dL (12.0-15.0); Mean Corp Hgb Conc 31.5 g/dL (32-36); Mean Corpuscular Hgb 27.5 pg (27.0-32.0); Mean Corpuscular Volume 87.3 fL (81-99); Mean Platelet Vol. 9.5 fl (6.2-12.0); Platelet Count 249 K/mm3 (150-450); RBC Distribution Width CV 14.9 % (11.6-14.6); RBC Distribution Width SD 47.8 fl (35.1-43.9); Red Blood Count 4.26 M/mm3 (4.2-5.4)
[2019-06-19 17:01] LABS: Anion Gap 2 (5-15); BUN 14 mg/dL (7-18); BUN/Creat Ratio 15.4 RATIO (10-20); Calcium,Total 9.1 mg/dL (8.5-10.1); Chloride 108 mmol/L (98-107); Creatinine, Serum 0.91 mg/dL (0.55-1.02); EST Glomerular Filtration Rate 65 mL/min (>60); Est Glom Filt Rate - Afr Amer 79 mL/min (>60); Estimated Creatinine Clearance 48.95 ml/min; Glucose 93 mg/dL (74-106); Potassium 4.4 mmol/L (3.5-5.1); Sodium Level 140 mmol/L (136-145); Thyroid Stim Hormone (TSH) 1.01 uIU/mL (0.358-3.74)
[2019-06-19 17:37] VITALS: BP 152/99; PULSE 53; RESP 20; O2SAT 96
[2019-06-19 17:37] LABS: Mucous, Urine 0 SEEN /hpf (<or=2+)
[2019-06-19 17:38] LABS: Color, Urine Yellow (Yellow); Glucose, Dipstick Normal (Normal); Ketone-Dipstick Negative (Negative); Leukocyte Esterase-Dipstick 100 /ul (Negative); Nitrite-Dipstick Positive (Negative); Occult Blood-Urine 10 /ul (Negative); Protein-Dipstick Negative (Negative); Urine Bilirubin Dipstick Negative (Negative); Urine Clarity Sl. Cloudy (Clear); Urine Urobilinogen Normal (Normal)
[2019-06-19 17:51] LABS: Bacteria RARE /hpf (None Seen); Red Blood Cells-Urine 0-5 SEEN /hpf (0-5); Squamous Epithelial Cells - UA 0-5 SEEN /hpf (5-10); White Blood Cells 5-10 SEEN /hpf (0-5)
[2019-06-19 19:01] VITALS: BP 178/100; RESP 17
[2019-06-19] MEDS: Cephalexin 250 MG Capsule 500 MG PO (19:09)
== END 2019-06-19 19:09 | disposition home or self-care (01) ==
PROVIDERS: Emergency Provider Emergency Medicine; Family Provider Family Medicine; PCP Family Medicine
DX: R60.0 Localized edema (principal); N39.0 Urinary tract infection, site not specified; I10 Essential (primary) hypertension; K21.9 Gastro-esophageal reflux disease without esophagitis; F17.200 Nicotine dependence, unspecified, uncomplicated; Z79.899 Other long term (current) drug therapy
CPT/HCPCS: 71046; 80048; 81001; 84443; 85027; 87077; 87086; 87088; 87186; 93005; 93970; 99285; A4216

== ENCOUNTER 2019-07-30 09:22 | Emergency (ER) | payer MEDICARE, SELFPAY ==
[2019-07-30 09:26] VITALS: BP 154/74; PULSE 52; RESP 18; TEMP 35.9; O2SAT 98; BMI 26.7
--- NOTE | 2019-07-30 10:21 | CT_ITS ---
STUDY: CT BRAIN WITHOUT CONTRAST REASON FOR EXAM: Female, 69 years old. Dizziness/vertigo/nausea. RADIATION DOSAGE (If Supplied By Facility): CTDIvol = ( 44.99 ) mGy, DLP = ( 779.24 ) mGycm TECHNIQUE: Transaxial CT imaging of the brain was performed without administration of intravenous contrast material. Individualized dose optimization techniques were used for this CT. COMPARISON: Comparison is made with prior study dated February 14, 2017. FINDINGS: Normal soft tissue structures. Normal calvarium. Normal size ventricles and extra-axial spaces for the patient's age. Normal white matter tracts of the cerebral hemispheres. Normal basal ganglia and thalami. Normal brainstem. Normal cerebellum. There is no intracranial hemorrhage. There are no findings of an acute ischemic infarction. Atherosclerotic calcification of the cavernous portions of the internal carotid arteries bilaterally. Normal visualized paranasal sinuses. CT/Brain/Head without Contrast IMPRESSION: Normal unenhanced CT scan of the brain. Electronically Signed: Adrian Evans, at 11:38 EDT , Service support ,
--- NOTE | 2019-07-30 10:26 | ED.VISSUMM ---
- ER Visit Summary Date of Service: 07/30/19 Chief Complaint: Room spinning dizziness History of Present Illness: The patient is a 69 F history of prior vertigo, hypertension and bladder cancer. Patient states she has had symptoms like this before. Yesterday afternoon started having room spinning dizziness. Associated nausea but no vomiting. No head injury. No trauma. She is not on blood thinners. She does have a mild headache. Denies any trouble moving her arms or legs. No visual change. No trouble with her speech. She is never had a stroke or mini stroke before. Physical Examination: Older female no acute distress vital signs are stable afebrile. Initial blood pressure 134/74. H EENT exam unremarkable. Pupils round reactive light. No signs of facial trauma. No facial droop. Normal speech. Neck nontender. Lungs clear to auscultation bilaterally. Heart regular rhythm no murmur. Abdomen is soft and nontender. Patient is moving all 4 extremities. Neurovascular intact. Equal symmetrical 5/5 purchasing engineer strength. Dorsi plantarflexion intact. Neurologically she is awake and alert. NIH score is 0. Finger tip to nose and [id number] within normal limits. Normal speech. No facial droop is Test Results: CBC shows no acute abnormality. White count of 9. Hemoglobin 12. Chemistries unremarkable normal creatinine and gap. CT of the brain is read by the radiologist reviewed by me shows no acute abnormality. Emergency Department Course and Treatment: Given history consistent with acute vertigo. It is worse with movement of the head. She will be treated with IV fluids and n.p.o. Valium. Repeat exam at 1225 patient says she is feeling much better. Her dizziness is resolved. Her repeat neurologic exam remains normal. She and I went over test results. Treatment Plan: Antivert as needed 14 no refill. Patient states that that worked well for her in the past. Disposition: dc Impression: Acute dizziness secondary to acute vertigo This note was generated with [employer] dictation software. It may contain incorrect words, spelling, and punctuation that were not noted in review of the chart prior to signing ED Disposition - Plan for ED Patient: Referrals: Antonio Mackey MD [Primary Care Provider] -
[2019-07-30 10:59] LABS: Absolute Lymphocyte Count 1.26 X10^3/uL (0.83-4.51); Absolute Neutrophil Count 7.4 X10^3/uL (2.0-7.7); Basophil# 0.04 X10^3/uL; Basophil% 0.4 % (0-1); Eosinophil# 0.21 X10^3/uL; Eosinophils% 2.2 % (0-5); Hematocrit 39.6 % (37-47); Hemoglobin 12.6 g/dL (12.0-15.0); Lymphocyte # 1.26 X10^3/ul (4.0); Lymphocyte % 13.4 % (19-41); Mean Corp Hgb Conc 31.8 g/dL (32-36); Mean Corpuscular Hgb 27.2 pg (27.0-32.0); Mean Corpuscular Volume 85.5 fL (81-99); Mean Platelet Vol. 8.8 fl (6.2-12.0); Monocyte# 0.44 X10^3/uL; Monocyte% 4.7 % (0-10); NRBC Flagged by Analyzer 0 % (0-5); Neutrophil # 7.43 X10^3/uL (2.7-7.7); Neutrophil % 78.9 % (47-70); Platelet Count 272 K/mm3 (150-450); RBC Distribution Width CV 15.9 % (11.6-14.6); RBC Distribution Width SD 49.5 fl (35.1-43.9); Red Blood Count 4.63 M/mm3 (4.2-5.4); White Blood Count 9.4 K/mm3 (4.4-11.0)
[2019-07-30] MEDS: diazePAM 5 MG Tablet PO (11:00)
[2019-07-30] MEDS: 0.9% Normal Saline 1,000 ML 1000 ML IV (11:00)
[2019-07-30 11:01] VITALS: BP 175/82; PULSE 64; RESP 18; O2SAT 99
[2019-07-30 11:12] LABS: Anion Gap 5 (5-15); BUN 13 mg/dL (7-18); BUN/Creat Ratio 15.5 RATIO (10-20); Calcium,Total 9.3 mg/dL (8.5-10.1); Chloride 111 mmol/L (98-107); Creatinine, Serum 0.84 mg/dL (0.55-1.02); EST Glomerular Filtration Rate 72 mL/min (>60); Est Glom Filt Rate - Afr Amer 87 mL/min (>60); Estimated Creatinine Clearance 53.02 ml/min; Glucose 93 mg/dL (74-106); Potassium 4.5 mmol/L (3.5-5.1); Sodium Level 140 mmol/L (136-145)
--- NOTE | 2019-07-30 12:37 | ED.DEP ---
ED Disposition - Plan for ED Patient: Disposition: Home or Assisted Living Instructions: VERTIGO, Unspecified Prescriptions: Meclizine HCl [Antivert] 25 mg PO 4X/DAY PRN PRN #14 tab PRN Reason: Dizziness Prescription Printed Referrals: Antonio Mackey MD [Primary Care Provider] - 3-5 Days if not improving Additional Instructions: Return as needed for room spinning dizziness. Follow-up with your doctor if not improving. Return if feeling worse.
[2019-07-30 12:43] VITALS: BP 170/83; PULSE 80; RESP 16; O2SAT 98
== END 2019-07-30 12:50 | disposition home or self-care (01) ==
PROVIDERS: Emergency Provider Emergency Medicine; Family Provider Family Medicine; PCP Family Medicine
DX: R42 Dizziness and giddiness (principal); I10 Essential (primary) hypertension; Z79.899 Other long term (current) drug therapy; Z72.0 Tobacco use
CPT/HCPCS: 70450; 80048; 85025; 96360; 96361; 99285; J7030; A4216

== ENCOUNTER → 2019-11-13 13:58 | Outpatient (CLI) | payer MEDICARE, SELFPAY ==
[2019-11-13 14:27] LABS: Mucous, Urine 0 SEEN /hpf (<or=2+)
[2019-11-13 15:20] LABS: Absolute Neutrophil Count 6.3 X10^3/uL (2.0-7.7); Basophil# 0.04 X10^3/uL; Basophil% 0.5 % (0-1); Eosinophil# 0.21 X10^3/uL; Eosinophils% 2.4 % (0-5); Hematocrit 37.8 % (37-47); Hemoglobin 11.9 g/dL (12.0-15.0); Lymphocyte % 19.2 % (19-41); Mean Corp Hgb Conc 31.5 g/dL (32-36); Mean Corpuscular Hgb 28.3 pg (27.0-32.0); Mean Platelet Vol. 9.1 fl (6.2-12.0); Monocyte# 0.54 X10^3/uL; Monocyte% 6.1 % (0-10); NRBC Flagged by Analyzer 0 % (0-5); Neutrophil # 6.33 X10^3/uL (2.7-7.7); Neutrophil % 71.6 % (47-70); Platelet Count 339 K/mm3 (150-450); RBC Distribution Width CV 15.8 % (11.6-14.6); White Blood Count 8.8 K/mm3 (4.4-11.0)
[2019-11-13 15:23] LABS: Color, Urine Yellow (Yellow); Glucose, Dipstick Normal (Normal); Ketone-Dipstick Negative (Negative); Leukocyte Esterase-Dipstick 100 /ul (Negative); Nitrite-Dipstick Positive (Negative); Occult Blood-Urine 250 /ul (Negative); Protein-Dipstick 30 mg/dl (Negative); Urine Bilirubin Dipstick Negative (Negative); Urine Clarity Sl. Cloudy (Clear); Urine Urobilinogen Normal (Normal)
[2019-11-13 15:36] LABS: ALB/GLOB Ratio 0.8 RATIO (0.9-2.4); AST(SGOT) 11 U/L (15-37); Alanine Aminotransfer ALT/SGPT 16 U/L (13-56); Albumin, Serum 3.6 g/dL (3.2-5.0); Alkaline Phosphatase 118 U/L (45-117); Anion Gap 5 (5-15); BUN 18 mg/dL (7-18); BUN/Creat Ratio 18.1 RATIO (10-20); Calcium,Total 9.4 mg/dL (8.5-10.1); Chloride 113 mmol/L (98-107); Cholesterol 202 mg/dL (200); Creatinine, Serum 0.99 mg/dL (0.55-1.02); EST Glomerular Filtration Rate 59 mL/min (>60); Est Glom Filt Rate - Afr Amer 71 mL/min (>60); Globulin 4.3 g/dL (2.2-4.2); Glucose 87 mg/dL (74-106); High Density Lipoprotein 57 mg/dL; Phosphorus 3.2 mg/dL (2.5-4.9); Potassium 4.7 mmol/L (3.5-5.1); Protein, Total 7.9 g/dL (6.4-8.2); Sodium Level 140 mmol/L (136-145); Triglycerides 108 mg/dL; Very Low Density Lipoprotein 22 mg/dL (5-40)
[2019-11-13 15:46] LABS: Red Blood Cells-Urine 50-100 SEEN /hpf (0-5); White Blood Cells 25-50 SEEN /hpf (0-5)
[2019-11-13 15:47] LABS: Bacteria RARE /hpf (None Seen); Squamous Epithelial Cells - UA 0-5 SEEN /hpf (5-10)
[2019-11-13 15:53] LABS: PTHIN 45.4 pg/mL (18.4-80.1); Vitamin D,25 Hydroxy 34.1 ng/mL (29.95-100.01)
== END ==
PROVIDERS: PCP Family Medicine; Referring Provider Family Medicine; Visit Provider Family Medicine
DX: I10 Essential (primary) hypertension (principal); E78.5 Hyperlipidemia, unspecified; E21.3 Hyperparathyroidism, unspecified; E55.9 Vitamin D deficiency, unspecified; M85.80 Other specified disorders of bone density and structure, unspecified site
CPT/HCPCS: 36415; 80053; 80061; 81001; 82306; 83970; 84100; 85025

== ENCOUNTER → 2019-11-19 11:53 | Outpatient (CLI) | payer MEDICARE, SELFPAY ==
--- NOTE | 2019-11-19 | FLU_PTH ---
PATIENT: GISELLE BA V LOC: [facility] U#:[id number] AGE/SX: 75/F ROOM: RE11/19/[address]: Dr. Antonio Mackey MD : 1950 BED: DIS: SPEC #: [id number] RECD: 11/19/19 14:12 STATUS: MARITZA JONNA #: [id number] LEE: 11/19/19 00:[address]: Antonio Mackey DEPT: CYTOLOGY RECD BY: Troy Carroll Tissues: Urine Procedures: Special Stain Group II Cytospin Fluid HEADER OPERATION: Not noted PRE-OP DIAGNOSIS: Hematuria TISSUE SUBMITTED: Urine for cytology DIAGNOSIS CYTOLOGY Urine for cytology (cytospin): Degenerating epithelioid and inflammatory cells. AM:obdulio 11/20/19 COMMENT Clinical correlation is necessary. CYTOLOGY STUDY Slides are reviewed. CYTOLOGY GROSS Received is 40 ml of yellow cloudy fluid labeled with the patient's name and and designated per the requisition as urine. Submitted for cytology preparation. / obdulio 11/19/19 TC:5 CPT: 29524
[2019-11-19 12:00] LABS: Cytology, Body Fluid / CSF SEE PATHOLOGY REPORT
== END ==
PROVIDERS: PCP Family Medicine; Referring Provider Family Medicine; Visit Provider Family Medicine
DX: R31.9 Hematuria, unspecified (principal)
CPT/HCPCS: 88108; 88313

== ENCOUNTER → 2020-02-20 12:17 | Outpatient (CLI) | payer MEDICARE, MEDICAID, SELFPAY ==
[2020-02-20 13:15] LABS: Amphetamine Urine VISTA NEGATIVE (<1000 ng/mL); Barbiturate Urine VISTA NEGATIVE (< 200 ng/mL); Benzodiazepine Urine VISTA NEGATIVE (< 200 ng/mL); Cocaine Urine VISTA NEGATIVE (< 300 ng/mL); Ecstacy Urine VISTA NEGATIVE (< 500 ng/mL); Methadone Urine VISTA NEGATIVE (< 300 ng/mL); PCP Urine VISTA NEGATIVE (< 25 ng/mL); THC Urine VISTA NEGATIVE (< 50 ng/mL); Vista UDS pH Range 6
== END ==
PROVIDERS: PCP Family Medicine; Referring Provider Anesthesiology Pain Medicine; Visit Provider Anesthesiology Pain Medicine
DX: F11.20 Opioid dependence, uncomplicated (principal)
CPT/HCPCS: 80307

== ENCOUNTER → 2020-03-11 13:57 | Outpatient (CLI) | payer MEDICARE, MEDICAID, SELFPAY ==
[2020-03-11 14:05] LABS: Squamous Epithelial Cells - UA 0 SEEN /hpf (5-10)
[2020-03-11 17:48] LABS: Color, Urine Yellow (Yellow); Glucose, Dipstick Normal (Normal); Ketone-Dipstick Negative (Negative); Leukocyte Esterase-Dipstick 500 /ul (Negative); Nitrite-Dipstick Negative (Negative); Occult Blood-Urine 25 /ul (Negative); Protein-Dipstick 15 mg/dl (Negative); Urine Bilirubin Dipstick Negative (Negative); Urine Clarity Cloudy (Clear); Urine Urobilinogen Normal (Normal)
[2020-03-11 17:49] LABS: Absolute Neutrophil Count 5.7 X10^3/uL (2.0-7.7); Basophil# 0.04 X10^3/uL; Basophil% 0.5 % (0-1); Eosinophil# 0.23 X10^3/uL; Eosinophils% 2.7 % (0-5); Hemoglobin 12.2 g/dL (12.0-15.0); Lymphocyte % 23.7 % (19-41); Mean Corp Hgb Conc 30.5 g/dL (32-36); Mean Corpuscular Hgb 27.5 pg (27.0-32.0); Mean Corpuscular Volume 90.3 fL (81-99); Mean Platelet Vol. 9.6 fl (6.2-12.0); Monocyte# 0.49 X10^3/uL; Monocyte% 5.8 % (0-10); NRBC Flagged by Analyzer 0 % (0-5); Neutrophil # 5.65 X10^3/uL (2.7-7.7); Neutrophil % 67.1 % (47-70); Platelet Count 387 K/mm3 (150-450); RBC Distribution Width CV 15.4 % (11.6-14.6); RBC Distribution Width SD 50.4 fl (35.1-43.9); Red Blood Count 4.43 M/mm3 (4.2-5.4); White Blood Count 8.4 K/mm3 (4.4-11.0)
[2020-03-11 18:02] LABS: Bacteria 2+ /hpf (None Seen); White Blood Cells 10-25 SEEN /hpf (0-5)
[2020-03-11 18:03] LABS: Mucous, Urine RARE /hpf (<or=2+); Red Blood Cells-Urine 0-5 SEEN /hpf (0-5)
[2020-03-11 18:09] LABS: ALB/GLOB Ratio 0.8 RATIO (0.9-2.4); AST(SGOT) 15 U/L (15-37); Alanine Aminotransfer ALT/SGPT 20 U/L (13-56); Albumin, Serum 3.4 g/dL (3.2-5.0); Alkaline Phosphatase 118 U/L (45-117); Anion Gap 8 (5-15); BUN 27 mg/dL (7-18); BUN/Creat Ratio 19.9 RATIO (10-20); CPK Total, Creatine Kinase 50 U/L (26-192); Calcium,Total 9.2 mg/dL (8.5-10.1); Chloride 109 mmol/L (98-107); Creatinine, Serum 1.36 mg/dL (0.55-1.02); EST Glomerular Filtration Rate 41 mL/min (>60); Est Glom Filt Rate - Afr Amer 50 mL/min (>60); Ferritin 94 ng/mL (8-252); Globulin 4.3 g/dL (2.2-4.2); Glucose 89 mg/dL (74-106); Magnesium 1.9 mg/dL (1.6-2.6); Potassium 4.6 mmol/L (3.5-5.1); Protein, Total 7.7 g/dL (6.4-8.2); Sodium Level 140 mmol/L (136-145)
[2020-03-11 18:10] LABS: Vitamin D,25 Hydroxy 19.1 ng/mL
[2020-03-12 10:54] LABS: PTHIN 42.7 pg/mL (18.4-80.1)
== END ==
PROVIDERS: PCP Family Medicine; Visit Provider Family Medicine
DX: I10 Essential (primary) hypertension (principal); R25.2 Cramp and spasm; E21.3 Hyperparathyroidism, unspecified; E55.9 Vitamin D deficiency, unspecified; D50.8 Other iron deficiency anemias
CPT/HCPCS: 36415; 80053; 81001; 82306; 82550; 82728; 83735; 83970; 85025

== ENCOUNTER → 2020-04-16 14:37 | Outpatient (CLI) | payer MEDICARE, MEDICAID, SELFPAY ==
--- NOTE | 2020-04-16 14:41 | US_ITS ---
STUDY: RENAL ULTRASOUND - COMPLETE REASON FOR EXAM: Female, 70 years old. CKD TECHNIQUE: Ultrasound evaluation of the kidneys was performed with real-time and static bautista-scale imaging. COMPARISON: None. FINDINGS: Right kidney: Measures 9.2 cm. Normal contour. Renal cortical thickness appears normal. There are 2 small cysts identified measuring up to 13 and 9 mm respectively. No masses, stones, or hydronephrosis identified. Left kidney: Measures 9.4 cm. Normal contour. Renal cortical thickness appears normal. Single cyst measures up to 11 mm. 3 mm calcific density may represent a small nonobstructing stone. Bladder: No intrinsic masses, stones, or abnormal dilatation noted. US/Kidney and Bladder IMPRESSION: Several small renal cysts and a likely small nonobstructing stone within the left kidney. Electronically Signed: Filipe Lino, at 16:15 EDT Tel , Service support ,
== END ==
PROVIDERS: PCP Family Medicine; Referring Provider Nurse Practitioner Adult Health; Visit Provider Nurse Practitioner Adult Health
DX: N18.9 Chronic kidney disease, unspecified (principal)
CPT/HCPCS: 76770

== ENCOUNTER 2020-04-28 07:03 | Emergency (ER) | payer MEDICARE, MEDICAID, SELFPAY ==
[2020-04-28 07:05] VITALS: BP 168/86; PULSE 75; RESP 18; TEMP 37.6; O2SAT 99; BMI 26.1
[2020-04-28 07:40] LABS: Absolute Lymphocyte Count 0.92 X10^3/uL (0.83-4.51); Absolute Neutrophil Count 10.4 X10^3/uL (2.0-7.7); Basophil# 0.03 X10^3/uL; Basophil% 0.2 % (0-1); Eosinophil# 0.19 X10^3/uL; Eosinophils% 1.5 % (0-5); Hematocrit 34.5 % (37-47); Hemoglobin 11.1 g/dL (12.0-15.0); Lymphocyte # 0.92 X10^3/ul (4.0); Lymphocyte % 7.4 % (19-41); Mean Corp Hgb Conc 32.2 g/dL (32-36); Mean Corpuscular Hgb 28.2 pg (27.0-32.0); Mean Corpuscular Volume 87.8 fL (81-99); Mean Platelet Vol. 8.6 fl (6.2-12.0); Monocyte# 0.92 X10^3/uL; Monocyte% 7.4 % (0-10); NRBC Flagged by Analyzer 0 % (0-5); Neutrophil # 10.38 X10^3/uL (2.7-7.7); Neutrophil % 83.1 % (47-70); Platelet Count 307 K/mm3 (150-450); RBC Distribution Width CV 15.6 % (11.6-14.6); RBC Distribution Width SD 49.8 fl (35.1-43.9); Red Blood Count 3.93 M/mm3 (4.2-5.4); White Blood Count 12.5 K/mm3 (4.4-11.0)
[2020-04-28 08:00] LABS: ALB/GLOB Ratio 0.8 RATIO (0.9-2.4); AST(SGOT) 13 U/L (15-37); Alanine Aminotransfer ALT/SGPT 12 U/L (13-56); Albumin, Serum 3.2 g/dL (3.2-5.0); Alkaline Phosphatase 121 U/L (45-117); Anion Gap 5 (5-15); BUN 23 mg/dL (7-18); BUN/Creat Ratio 22.1 RATIO (10-20); Calcium,Total 8.8 mg/dL (8.5-10.1); Chloride 113 mmol/L (98-107); Creatinine, Serum 1.04 mg/dL (0.55-1.02); EST Glomerular Filtration Rate 56 mL/min (>60); Est Glom Filt Rate - Afr Amer 68 mL/min (>60); Estimated Creatinine Clearance 42.23 ml/min; Globulin 3.9 g/dL (2.2-4.2); Glucose 118 mg/dL (74-106); Potassium 4.2 mmol/L (3.5-5.1); Protein, Total 7.1 g/dL (6.4-8.2); Sodium Level 140 mmol/L (136-145)
[2020-04-28 08:08] LABS: Lactic Acid 1.5 mmol/L (0.4-1.9)
[2020-04-28 08:14] VITALS: BP 131/83; PULSE 73; RESP 15; O2SAT 100
[2020-04-28] MEDS: Morphine 4 MG/ML Syringe IV (08:15)
[2020-04-28] MEDS: Ondansetron 4 MG/2 ML Vial IV (08:15)
[2020-04-28 08:19] VITALS: BP 184/81; PULSE 74; RESP 14; TEMP 37.3; O2SAT 99
[2020-04-28 08:20] VITALS: TEMP 37.3
[2020-04-28 08:32] LABS: Mucous, Urine 0 SEEN /hpf (<or=2+)
[2020-04-28 08:36] LABS: International Normalized Ratio 0.9; Partial Thromboplast Time 23.4 Seconds (24.1-36.2); Prothrombin Time (Protime)PT. 12.1 SECONDS (11.7-14.9)
[2020-04-28 08:44] LABS: Color, Urine Yellow (Yellow); Glucose, Dipstick Normal (Normal); Ketone-Dipstick Negative (Negative); Leukocyte Esterase-Dipstick 500 /ul (Negative); Nitrite-Dipstick Positive (Negative); Occult Blood-Urine 50 /ul (Negative); Protein-Dipstick 30 mg/dl (Negative); Urine Bilirubin Dipstick Negative (Negative); Urine Clarity Sl. Cloudy (Clear); Urine Urobilinogen Normal (Normal)
--- NOTE | 2020-04-28 08:49 | ED.VISSUMM ---
- ER Visit Summary Date of Service: 04/28/20 Chief Complaint: UTI History of Present Illness: The patient is a [address] Perrin and Dr. Mackey. She reports she is had a suprapubic catheter for years. States that she is not been able to get medical supplies for the past month. However, she reports that her suprapubic catheter was changed a week and a half ago. She reports that yesterday she noticed that the drainage was cloudy. Today she developed a fever to 102 degrees. She also had chills and sweats. She is had nausea, but denies any vomiting. She denies any flank pain. Physical Examination: Vitals: Stable. Afebrile. General: Well-nourished and well-developed. Head: Normocephalic atraumatic. Neck: Supple, no lymphadenopathy. No JVD. Nontender. Cardiovascular: Regular rate and rhythm. No murmurs. Respiratory: No respiratory distress. Clear to auscultation bilaterally. Abdominal: Soft, mild suprapubic tenderness to palpation, nondistended, normal bowel sounds. No guarding, rebound, or peritoneal signs. Back: Nontender. Extremities: Nontender, no edema. Skin: Normal color, no rash. Neurologic: Alert and oriented ?3. Cranial nerves II through XII are intact. Normal strength and sensation. Psych: Normal affect. Test Results: CBC shows a white count of 12.5 with 83 segmented feels and 7 lymphocytes. H&H is 11.1 34.5. Lactic acid is 1.5. Chem-7 shows a chloride 113, glucose 118, BUN 23, creatinine 1.04. LFTs show an alk phos of 121, ALT of 12, AST of 13. Coags are normal. UA shows leukocytes, nitrites, blood, 50-100 white blood cells, and 2+ bacteria. Emergency Department Course and Treatment: Patient had an IV placed. She is given morphine, and Zofran IV. She reports that the only medication that works for her urinary tract infections is Levaquin. She was given a dose p.o. Her urine was sent for culture. She is resting comfortably. Treatment Plan: Patient feels well and would like to go home. She will be discharged with Levaquin and instructed to follow-up with her primary care physician in 2 days to get the results of the urine culture. Return to the emergency department for any worsening symptoms. Disposition: To home in improved and stable condition. Impression: 1. UTI. 2. Chronic suprapubic catheter. This note was generated with [employer] dictation software. It may contain incorrect words, spelling, and punctuation that were not noted in review of the chart prior to signing ED Disposition - Plan for ED Patient: Instructions: ED Pyelonephritis Female Adult Prescriptions: Levofloxacin [Levaquin] 750 mg PO DAILY #7 tablet Referrals: Antonio Mackey MD [Primary Care Provider] - 2 Days
[2020-04-28 08:50] LABS: Amorphous Sediment 1+; Bacteria 2+ /hpf (None Seen); Red Blood Cells-Urine 0-5 SEEN /hpf (0-5); Squamous Epithelial Cells - UA 0-5 SEEN /hpf (5-10); White Blood Cells 50-100 SEEN /hpf (0-5)
[2020-04-28 09:34] VITALS: BP 170/78; PULSE 78; RESP 17; O2SAT 97
[2020-04-28 09:36] VITALS: TEMP 37.4
[2020-04-28] MEDS: levoFLOXacin 750 MG Tablet PO (09:36)
== END 2020-04-28 10:01 | disposition home or self-care (01) ==
LOC: ED 07:46
PROVIDERS: Emergency Provider Emergency Medicine; PCP Family Medicine
DX: N39.0 Urinary tract infection, site not specified (principal); F17.200 Nicotine dependence, unspecified, uncomplicated; I10 Essential (primary) hypertension; K21.9 Gastro-esophageal reflux disease without esophagitis
CPT/HCPCS: 80053; 81001; 83605; 85025; 85610; 85730; 87040; 87077; 87086; 87088; 87186; 96361; 96374; 96375; 99285; J7040; A4216; J2405

== ENCOUNTER 2020-05-07 23:40 | Emergency (ER) | payer MEDICARE, MEDICAID, SELFPAY ==
[2020-05-07 23:41] VITALS: BP 153/82; PULSE 69; RESP 18; TEMP 35.9; O2SAT 98; BMI 25.9
--- NOTE | 2020-05-07 23:46 | ED.VIS.GI ---
History of Present Illness Chief Complaint: Abd Pain - Abdominal Pain/Flank Pain Onset: Hours - several Context: Gradual Onset - fairly quickly Timing: Continuous Quality: Aching Location: - Current Severity: Severe Maximum Severity: Severe Worsened by: Nothing Relieved by: Nothing - Nausea/Vomiting/Emesis GI Symptom: Nausea, Vomiting Onset: Today Quality: Nonbilious. Negative for: Blood streaks Severity: Moderate - Diarrhea/Melena/Hematochezia GI Symptom: Negative for: Diarrhea, Melena, Hematochezia Associated Symptoms: Negative for: Dysuria, Frequency, Hematuria, Urgency Narrative: Patient has suprapubic catheter due to complications/management of bladder cancer remotely, has a longstanding history of urinary tract infections related to this, and states this is how it presents almost every time and suspect she has another infection. Pain in her mid abdomen, just above where the catheter is, vomiting, feeling malaise. She denies any fevers or chills this time, but states that 2 days ago she finished a weeklong course of antibiotics for the same thing, and she had fevers up to 102 that time. She denies any cough, shortness of breath, respiratory symptoms. Urine has been flowing freely through her catheter, and has not looked unusual or bloody. Although she has a history of chronic low back pain, she has no back pain now with this. - Past Medical History (1) Chronic low back pain Status: Chronic (2) GERD (gastroesophageal reflux disease) Status: Chronic (3) History of bladder cancer Status: Chronic (4) History of kidney stones Status: Chronic (5) Suprapubic catheter Status: Chronic Past Medical History - Allergies and Home Meds Allergies/Adverse Reactions: Allergies Iodinated Contrast Media [Iodinated Contrast Media - IV Dye] Allergy (Verified 04/28/20 07:08) started having [place] Penicillins Allergy (Verified 04/28/20 07:08) Rash Sulfa (Sulfonamide Antibiotics) Allergy (Verified 04/28/20 07:08) Rash amlodipine Adverse Reaction (Verified 04/28/20 07:08) nausea, htn, headaches ciprofloxacin [From Cipro] Adverse Reaction (Verified 04/28/20 07:08) stomach problems ciprofloxacin HCl [From Cipro] Adverse Reaction (Verified 04/28/20 07:08) stomach problems hydromorphone HCl [From Dilaudid] Adverse Reaction (Verified 04/28/20 07:08) headache nitrofurantoin [From Macrobid] Adverse Reaction (Verified 04/28/20 07:08) doesn't work nitrofurantoin macrocrystalline [From Macrobid] Adverse Reaction (Verified 04/28/20 07:08) doesn't work pramipexole Adverse Reaction (Verified 04/28/20 07:08) stomach problems sucralfate Adverse Reaction (Verified 04/28/20 07:08) can't swallow Primary Care Physician: Antonio Mackey MD [Primary Care Provider] - Surgical History: cholecystectomy, herniorrhaphy, - - Removal of bladder with reconstruction. The surgery was 20 years ago. Lives: Spouse/ Significant Other Smoking Status: Current every day smoker - Family History Maternal Family History: Reports: No pertinent history Review of Systems General: Reports: Malaise. Denies: Chills, Fever, Sweats Eyes: Denies: Visual changes - bilaterally, Diplopia ENT: Denies: Rhinorrhea, Sore throat Cardiovascular: Denies: Chest pain, Palpitations Respiratory: Denies: Dyspnea, Cough, Dyspnea on exertion Gastrointestinal: Reports: Abdominal pain, Nausea, Vomiting. Denies: Diarrhea, Melena, Hematochezia Genitourinary: Denies: Dysuria, Hematuria, Frequency Musculoskeletal: Denies: Neck pain, Back pain, Extremity Pain Skin: Denies: Rash, Wounds Neurological: Denies: Headache, Weakness, Numbness Physical Exam Vital Signs/Narrative: Vital Signs Temp Pulse Resp BP Pulse Ox 05/07/20 23:41 96.6 F L 69 18 153/82 H 98 Inital Vital Signs reviewed: Yes General: Well nourished, Well developed, No Acute Distress Head: Normocephalic, Atraumatic Eyes: Perrl, EOMI ENT: Moist mucous membranes, No rhinorrhea Neck: Supple, Nontender Cardiovascular: Regular rate, Regular rhythm, No murmurs Respiratory: No distress, CTA bilaterally, Chest nontender Abdomen: Soft, Nondistended, Normal bowel sounds, Tender - Mid abdomen, above her catheter, which is just infraumbilical. Nontender as far as the epigastrium and other areas of the upper abdomen, nontender in the lower quadrants and suprapubic area as well., Hernia reducible - Around the suprapubic catheter site. Negative for: Guarding, Rebound tenderness, Pulsatile mass Back: Nontender, Normal Inspection. Negative for: CVA tenderness Extremities: Nontender, No edema Skin: Normal color, No rash Neurological: Alert, Oriented x3, Cranial nerves II-XII grossly intact, Normal Strength, Normal Sensation Psychological: Normal affect, Normal Mood Diagnostic/Tx/Re-eval Impressions Abdomen CT 05/08/20 00:52 IMPRESSION: 9 cm segment of inflamed edematous stranding possibly necrotic small bowel within the midline abdomen deep to the fascia wall to the right of the external tubing,with associated small bowel obstruction. This is complicated by a sizable right side inguinal hernia which contains large bowel and also an ileal conduit involving the bilateral ureters of which there is [id number] right hydronephrosis and gas probable reflux of gas within the right ureter. In addition there is a nondistended noninflamed herniation of small bowel into the subcutaneous fat to the right of the external tubing. New free fluid, ascites. Status post cholecystectomy. Status post cystectomy Status post hysterectomy. Postoperative change of the ascending colon. Diverticulosis no evidence of diverticulitis. Stable nodule right lower lobe. Stable mass left adrenal gland. Given stability over time this likely represents an adenoma. N.B. : The above information has been verbally conveyed by Belén Strickland MD to Dr. Matheus Hinojosa MD, on 05/08/2020 03:10:54 (ET). Electronically Signed: Belén Strickland MD at 3:16 EDT Tel , Service support , 05/08/20 00:52 CT Abd [Abdomen/Pel W ORAL Cont Only] [CT] Stat Laboratory Results 05/08/20 05/08/20 05/08/20 00:10 00:10 00:10 WBC 13.0 H RBC 4.66 Hgb 13.0 Hct 40.3 MCV 86.5 MCH 27.9 MCHC 32.3 RDW Std Deviation 48.5 H RDW Coeff of Kevin 15.3 H Plt Count 444 MPV 9.1 Immature Gran % (Auto) 0.400 Neut % (Auto) 81.4 H Lymph % (Auto) 10.9 L Cochran % (Auto) 5.7 Eos % (Auto) 1.1 Baso % (Auto) 0.5 Absolute Neuts (auto) 10.6 H Absolute Lymphs (auto) 1.41 Nucleated RBC % 0 Sodium 140 Potassium 3.9 Chloride 112 H Carbon Dioxide 22.0 Anion Gap 6 BUN 22 H Creatinine 1.13 H Estim Creat Clear Calc 38.87 Est GFR (MDRD) Af Amer 61 Est GFR (MDRD) Non-Af 51 L BUN/Creatinine Ratio 19.5 Glucose 118 H Calcium 9.2 Urine Color Yellow Urine Clarity Clear Urine pH 6.0 Ur Specific [place] 1.020 Urine Protein 30 H Urine Glucose (UA) Normal Urine Ketones 5 H Urine Occult Blood 25 H Urine Nitrite Negative Urine Bilirubin Negative Urine Urobilinogen Normal Ur Leukocyte Esterase Negative Urine RBC 5-10 SEEN Urine WBC 5-10 SEEN Ur Squamous Epith Cells 0 SEEN Urine Bacteria 0 SEEN Urine Mucus 0 SEEN - Medical Decision Making We were able to obtain urine fairly quickly from her hardware, and it does not show acute infection. Discussing further with the patient, and suspecting the possibility of a bowel obstruction given her symptoms, she states she did have a bowel obstruction last year that was treated nonsurgically with an NG tube. She also states that she had a cardiac arrest that she suspects was due to IV iodinated contrast dye for a CT scan in the past. Therefore omitting that, we performed a CT with oral contrast only since she was stable and her symptoms were temporarily well-controlled with morphine and Zofran, although she did need to be redosed later. CT results are as above, which were communicated to me by the radiologist, out of concern for the segment of possibly necrotic bowel that appears to be the etiology of the acute small bowel obstruction. I discussed with surgery Dr. Lipscomb who was on-call for unassigned, she states that since this patient has an ileal conduit, she is too complex for our [facility] and we should seek transfer to a tertiary care center. The patient had her surgery done 20 or so years ago at [facility], and was transferred there last year for her bowel obstruction it was treated nonsurgically, and would like to be transferred there again. I discussed with their transfer center, and they said the patient is accepted there by Dr. Villagran. The patient remained clinically and hemodynamically stable throughout her ER stay, and her abdomen soft and without peritoneal signs at this time. ED Disposition - Plan for ED Patient: Disposition: [facility] Diagnosis: Small bowel obstruction Referrals: Antonio Mackey MD [Primary Care Provider] -
[2020-05-07 23:49] VITALS: BP 153/82; PULSE 69; RESP 18; TEMP 35.9; O2SAT 98
[2020-05-08] MEDS: Morphine 4 MG/ML Syringe IV ×2 (00:11→03:03)
[2020-05-08] MEDS: Ondansetron 4 MG/2 ML Vial IV (00:11)
[2020-05-08 00:33] LABS: Absolute Lymphocyte Count 1.41 X10^3/uL (0.83-4.51); Absolute Neutrophil Count 10.6 X10^3/uL (2.0-7.7); Basophil# 0.07 X10^3/uL; Basophil% 0.5 % (0-1); Eosinophil# 0.14 X10^3/uL; Eosinophils% 1.1 % (0-5); Hematocrit 40.3 % (37-47); Lymphocyte # 1.41 X10^3/ul (4.0); Lymphocyte % 10.9 % (19-41); Mean Corp Hgb Conc 32.3 g/dL (32-36); Mean Corpuscular Hgb 27.9 pg (27.0-32.0); Mean Corpuscular Volume 86.5 fL (81-99); Mean Platelet Vol. 9.1 fl (6.2-12.0); Monocyte# 0.74 X10^3/uL; Monocyte% 5.7 % (0-10); NRBC Flagged by Analyzer 0 % (0-5); Neutrophil # 10.55 X10^3/uL (2.7-7.7); Neutrophil % 81.4 % (47-70); Platelet Count 444 K/mm3 (150-450); RBC Distribution Width CV 15.3 % (11.6-14.6); RBC Distribution Width SD 48.5 fl (35.1-43.9); Red Blood Count 4.66 M/mm3 (4.2-5.4)
[2020-05-08 00:34] LABS: Bacteria 0 SEEN /hpf (None Seen); Mucous, Urine 0 SEEN /hpf (<or=2+); Squamous Epithelial Cells - UA 0 SEEN /hpf (5-10)
[2020-05-08 00:36] LABS: Color, Urine Yellow (Yellow); Glucose, Dipstick Normal (Normal); Ketone-Dipstick 5 mg/dl (Negative); Leukocyte Esterase-Dipstick Negative /ul (Negative); Nitrite-Dipstick Negative (Negative); Occult Blood-Urine 25 /ul (Negative); Protein-Dipstick 30 mg/dl (Negative); Urine Bilirubin Dipstick Negative (Negative); Urine Clarity Clear (Clear); Urine Urobilinogen Normal (Normal)
[2020-05-08 00:44] LABS: Red Blood Cells-Urine 5-10 SEEN /hpf (0-5); White Blood Cells 5-10 SEEN /hpf (0-5)
[2020-05-08 00:47] LABS: Anion Gap 6 (5-15); BUN 22 mg/dL (7-18); BUN/Creat Ratio 19.5 RATIO (10-20); Calcium,Total 9.2 mg/dL (8.5-10.1); Chloride 112 mmol/L (98-107); Creatinine, Serum 1.13 mg/dL (0.55-1.02); EST Glomerular Filtration Rate 51 mL/min (>60); Est Glom Filt Rate - Afr Amer 61 mL/min (>60); Estimated Creatinine Clearance 38.87 ml/min; Glucose 118 mg/dL (74-106); Potassium 3.9 mmol/L (3.5-5.1); Sodium Level 140 mmol/L (136-145)
--- NOTE | 2020-05-08 00:52 | CT_ITS ---
STUDY: CT ABDOMEN AND PELVIS WITHOUT CONTRAST REASON FOR EXAM: Female, 70 years old. ABDOMEN PAIN AND Vomiting, elevated WBC -- Hx: bladder CANCER,GERD,HTN,UTI''S,KIDNEY STONES -- SURGERY:CHOLECYSTECTOMY,HERNIA REPAIR,JASMINA/BSO -- BLADDER REMOVED PT HAS UROSTOMY RADIATION DOSAGE (If Supplied By Facility): CTDIvol = ( 7.00 ) mGy, DLP = ( 414.07 ) mGycm TECHNIQUE: Transaxial images were obtained from the dome of the diaphragm to the symphysis pubis with oral contrast, and without intravenous contrast. Sagittal and coronal images were reconstructed. Individualized dose optimization techniques were used for this CT. COMPARISON: 03/04/2019 CT scan abdomen and pelvis FINDINGS: There is lower lobe atelectasis and underlying fibrotic changes. Within the periphery of the right lower lobe there is a visualized nodule measuring 5.9 mm stable since prior study. The visualized portions of the heart are within normal limits. There is newly visualized fluid surrounding the periphery of the right hepatic lobe. There is non-visualization of the gallbladder, which may be secondary to either contraction or a prior cholecystectomy. There is fluid tracking adjacent to the spleen with simple [place] units. The spleen is of normal size. Normal pancreas. There is a 2.5 x 2.5 cm mass in the left adrenal gland relatively stable in appearance when compared to prior study fairly low HOUNSFIELD units suggesting an adenoma. There is mild to moderate right hydronephrosis. There is gas within the right renal pelvis. There is mild left pelviectasis without visualize gas. The right ureter extends across the midline and appears to empty into the cecum or bowel loop within the right lower quadrant herniated into a large right-sided inguinal hernia. Normal left kidney. There is contrast in the stomach. There are distended loops of small bowel present. This is apparent within the pelvis where there are distended loops of bowel. There is a abnormality edematous stranding distended noncontrast loop of bowel within the anterior aspect of the abdomen likely adherence to the inner side of the fascia, associated with a small focus of herniation was seen on the prior study. There is moderate stool in the colon. There are tortuous redundant loops of bowel demonstrated. There is diverticulosis. There is a worse herniated appearance of the right side large bowel, cecum but also contains a catheter possibly associated with the ileal conduit. This herniation extends down into the right side of the mons pubis. Adjacent to the tubing and the right and midline abdomen there are small bowel loops which also herniate out of this opening which are nondistended and noninflamed. See image #104. This was also seen on the prior study. There is non-visualization of the appendix. There is also postoperative change within the mid ascending colon. The aorta is tortuous and partially calcified. The infrarenal aorta measures 2.8 x 2.4 cm. Normal inferior vena cava. Normal retroperitoneum. The bladder is been surgically removed. Uterus is been surgically removed. There is a hernia to the right of the right lower quadrant tubing. There is a large wide herniation of the large bowel containing this tubing into which the bilateral ureters drain. This hernia extends into the mons pubis. This is likely clinically visible. There are diffuse degenerative changes of the visualized lumbar spine. CT/Abdomen/Pel W ORAL Cont Only IMPRESSION: 9 cm segment of inflamed edematous stranding possibly necrotic small bowel within the midline abdomen deep to the fascia wall to the right of the external tubing,with associated small bowel obstruction. This is complicated by a sizable right side inguinal hernia which contains large bowel and also an ileal conduit involving the bilateral ureters of which there is [id number] right hydronephrosis and gas probable reflux of gas within the right ureter. In addition there is a nondistended noninflamed herniation of small bowel into the subcutaneous fat to the right of the external tubing. New free fluid, ascites. Status post cholecystectomy. Status post cystectomy Status post hysterectomy. Postoperative change of the ascending colon. Diverticulosis no evidence of diverticulitis. Stable nodule right lower lobe. Stable mass left adrenal gland. Given stability over time this likely represents an adenoma. N.B. : The above information has been verbally conveyed by Belén Strickland MD to Dr. Matheus Hinojosa MD, on 05/08/2020 03:10:54 (ET). Electronically Signed: Belén Strickland MD at 3:16 EDT Tel , Service support ,
[2020-05-08] MEDS: Metoclopramide 10 MG/2 ML Vial 5 MG IV (03:03)
[2020-05-08 03:05] VITALS: BP 138/70; PULSE 66; RESP 16; TEMP 35.9; O2SAT 96
[2020-05-08] MEDS: 0.9% Normal Saline 1,000 ML 150 ML IV (04:11)
[2020-05-08 04:37] VITALS: BP 130/74; PULSE 66; RESP 16; TEMP 36.1; O2SAT 96
== END 2020-05-08 06:05 | disposition short-term general hospital (02) ==
PROVIDERS: Emergency Provider Emergency Medicine; PCP Family Medicine
DX: K56.609 Unspecified intestinal obstruction, unspecified as to partial versus complete obstruction (principal); F17.200 Nicotine dependence, unspecified, uncomplicated; I10 Essential (primary) hypertension; K21.9 Gastro-esophageal reflux disease without esophagitis
CPT/HCPCS: 74176; 80048; 81001; 85025; 87086; 96361; 96374; 96375; 99285; J7030; J2405

== ENCOUNTER → 2020-05-13 14:39 | Outpatient (CLI) | payer MEDICARE, MEDICAID, SELFPAY ==
[2020-05-07 23:41] VITALS: BMI 25.9
--- NOTE | 2020-05-13 14:41 | VDLE_ITS ---
Reason For Study: swelling Procedure LEFT Exam performed in department. GSV is normal. The exam was abbreviated due to the COVID 19 CFV is compressible, spontaneous, phasic, protocol. competent, and demonstrates normal The exam was diagnostic. augmentation. A preliminary report was called and/or faxed FV is compressible, spontaneous, phasic, to Dr. Mackey. competent and demonstrates normal augmentation. POP V is compressible, spontaneous, phasic, competent and demonstrates normal augmentation. T/P Trunk is compressible. PTV is compressible. LT PerV is compressible. Interpretation Summary Deep veins of the left lower extremity are patent and compressible segmentally. There is no evidence of left lower extremity deep vein thrombosis. Valvular competence appears intact within the proximal deep venous system on the left . The left great saphenous vein appears patent and compressible segmentally. Ordering Physician: Antonio Mackey Performed By: Joo Combs RVCam
== END ==
PROVIDERS: PCP Family Medicine; Referring Provider Family Medicine; Visit Provider Family Medicine
DX: M79.89 Other specified soft tissue disorders (principal)
CPT/HCPCS: 93971

== ENCOUNTER → 2020-06-12 08:41 | Outpatient (CLI) | payer MEDICARE, MEDICAID, SELFPAY ==
[2020-06-12 08:52] LABS: Mucous, Urine 0 SEEN /hpf (<or=2+)
[2020-06-12 09:56] LABS: Absolute Lymphocyte Count 1.64 X10^3/uL (0.83-4.51); Absolute Neutrophil Count 5.2 X10^3/uL (2.0-7.7); Basophil# 0.06 X10^3/uL; Basophil% 0.8 % (0-1); Eosinophil# 0.33 X10^3/uL; Eosinophils% 4.2 % (0-5); Hemoglobin 11.5 g/dL (12.0-15.0); Lymphocyte # 1.64 X10^3/ul (4.0); Lymphocyte % 20.8 % (19-41); Mean Corp Hgb Conc 30.3 g/dL (32-36); Mean Corpuscular Hgb 26.9 pg (27.0-32.0); Mean Corpuscular Volume 88.8 fL (81-99); Mean Platelet Vol. 9.4 fl (6.2-12.0); Monocyte# 0.61 X10^3/uL; Monocyte% 7.7 % (0-10); NRBC Flagged by Analyzer 0 % (0-5); Neutrophil # 5.22 X10^3/uL (2.7-7.7); Neutrophil % 66.1 % (47-70); Platelet Count 323 K/mm3 (150-450); RBC Distribution Width CV 14.6 % (11.6-14.6); RBC Distribution Width SD 47.3 fl (35.1-43.9); Red Blood Count 4.28 M/mm3 (4.2-5.4); White Blood Count 7.9 K/mm3 (4.4-11.0)
[2020-06-12 10:01] LABS: Color, Urine Straw (Yellow); Glucose, Dipstick Normal (Normal); Ketone-Dipstick Negative (Negative); Leukocyte Esterase-Dipstick 100 /ul (Negative); Nitrite-Dipstick Positive (Negative); Occult Blood-Urine 25 /ul (Negative); Protein-Dipstick 30 mg/dl (Negative); Urine Bilirubin Dipstick Negative (Negative); Urine Clarity Cloudy (Clear); Urine Urobilinogen Normal (Normal); Urine pH 6.5 (5.0 - 8.0)
[2020-06-12 10:22] LABS: Vitamin D,25 Hydroxy 31.4 ng/mL
[2020-06-12 10:27] LABS: Amorphous Sediment 1+; Bacteria 3+ /hpf (None Seen); Hyaline Cast 0-5 SEEN /lpf (0-5); Red Blood Cells-Urine 0-5 SEEN /hpf (0-5); White Blood Cells 50-100 SEEN /hpf (0-5); White Cell Cast 0-5 SEEN /lpf (None Seen)
[2020-06-12 10:28] LABS: Squamous Epithelial Cells - UA 0 SEEN /hpf (5-10)
[2020-06-12 10:35] LABS: ALB/GLOB Ratio 0.9 RATIO (0.9-2.4); AST(SGOT) 12 U/L (15-37); Alanine Aminotransfer ALT/SGPT 12 U/L (13-56); Albumin, Serum 3.5 g/dL (3.2-5.0); Alkaline Phosphatase 116 U/L (45-117); Anion Gap 4 (5-15); BUN 42 mg/dL (7-18); BUN/Creat Ratio 30.4 RATIO (10-20); Chloride 114 mmol/L (98-107); Cholesterol 155 mg/dL (200); Creatinine, Serum 1.38 mg/dL (0.55-1.02); EST Glomerular Filtration Rate 40 mL/min (>60); Est Glom Filt Rate - Afr Amer 49 mL/min (>60); Globulin 4.1 g/dL (2.2-4.2); Glucose 86 mg/dL (74-106); High Density Lipoprotein 47 mg/dL; Phosphorus 3.6 mg/dL (2.5-4.9); Potassium 4.8 mmol/L (3.5-5.1); Protein, Total 7.6 g/dL (6.4-8.2); Sodium Level 139 mmol/L (136-145); Triglycerides 111 mg/dL; Very Low Density Lipoprotein 22 mg/dL (5-40)
== END ==
PROVIDERS: PCP Family Medicine; Referring Provider Family Medicine; Visit Provider Family Medicine
DX: F17.200 Nicotine dependence, unspecified, uncomplicated (principal); E78.5 Hyperlipidemia, unspecified; I12.9 Hypertensive chronic kidney disease with stage 1 through stage 4 chronic kidney disease, or unspecified chronic kidney disease; E55.9 Vitamin D deficiency, unspecified; N18.2 Chronic kidney disease, stage 2 (mild)
CPT/HCPCS: 36415; 80053; 80061; 81001; 82306; 84100; 85025

== ENCOUNTER → 2020-06-24 16:34 | Outpatient (CLI) | payer MEDICARE, MEDICAID, SELFPAY ==
--- NOTE | 2020-06-24 16:36 | CT_ITS ---
STUDY: CT CHEST WITHOUT CONTRAST REASON FOR EXAM: Female, 70 years old. Multiple pulmonary nodules. RADIATION DOSAGE (If Supplied By Facility): CTDIvol = ( 8.14 ) mGy, DLP = ( 271.12 ) mGycm TECHNIQUE: Transaxial imaging was performed without the administration of intravenous contrast material. Multiplanar coronal and sagittal images were reformatted. Individualized dose optimization techniques were used for this CT. COMPARISON: CT of the chest, 04/13/2019. FINDINGS: The lungs are well expanded this is stable nodule in the periphery of the left upper lobe seen best on image 86 of series 4. There is a stable nodular densities in the periphery of the posterior left upper lobe best seen on image 96 of series 4. There is a second nodule in the subpleural aspects of the lateral left upper lobe best seen on image 102 of series 4. There is a stable nodule in the left lower lobe on image 161 of series 4 as well as stable nodule in the left lower lobe on image 192. On image 162, there is a solid nodule peripherally in the right lower lobe which appears stable. No new nodules or infiltrates are present. There is no demonstrated pleural abnormality. Normal heart and pericardium. There are calcifications of the coronary arteries. Normal mediastinum. Normal hilar regions. Normal unenhanced pulmonary arteries. There is atherosclerotic calcification of the aortic arch with tortuosity and elongation of the aortic arch and descending thoracic aorta. There are multi-level degenerative changes of the thoracic spine. There is no demonstrated abnormality of the visualized upper abdomen. CT/Chest without Contrast IMPRESSION: Stable pulmonary nodules when compared to prior study. There is no major interval change. Electronically Signed: Octavio Maya DO at 21:25 EDT Tel [phone], Service support ,
== END ==
PROVIDERS: PCP Family Medicine; Referring Provider Family Medicine; Visit Provider Family Medicine
DX: R91.8 Other nonspecific abnormal finding of lung field (principal)
CPT/HCPCS: 71250

== ENCOUNTER → 2020-08-19 11:25 | Outpatient (CLI) | payer MEDICARE, MEDICAID, SELFPAY ==
--- NOTE | 2020-08-19 11:28 | RAD_ITS ---
STUDY: X-RAY - RIGHT HAND REASON FOR EXAM: Female, 70 years old. Arthritis, pain in bilateral hands TECHNIQUE: 3 view(s) of the hand. COMPARISON: None. FINDINGS: There is joint space narrowing of the radiocarpal articulation consistent with degenerative arthrosis. Normal distal radioulnar joint. Calcification of the triangular fibrocartilage. Normal visualized carpal bones. Normal carpal articulations Normal carpometacarpal articulation of the thumb. Normal second through fifth carpometacarpal joints. Normal metacarpi. Normal metacarpophalangeal joint of the thumb. Normal interphalangeal joint of the thumb. Normal proximal and distal phalanges of the thumb. Normal metacarpophalangeal joints of the second through fifth fingers. There is articular joint space narrowing of the proximal and distal interphalangeal joints of the second through fifth fingers, but without erosive changes or periarticular soft tissue swelling. Normal phalanges of the second through fifth fingers. The soft tissue structures are unremarkable. RAD/Hand Min 3 Views IMPRESSION: Degenerative joint disease of the hand and wrist, as described above. Electronically Signed: Adrian Evans, at 13:11 EST , Service support ,
--- NOTE | 2020-08-19 11:30 | RAD_ITS ---
STUDY: X-RAY - LEFT HAND REASON FOR EXAM: Female, 70 years old. Arthritis, pain in bilateral hands TECHNIQUE: 3 view(s) of the hand. COMPARISON: None. FINDINGS: There is joint space narrowing of the radiocarpal articulation consistent with degenerative arthrosis. Normal distal radioulnar joint. Calcification of the triangular fibrocartilage. Normal visualized carpal bones. Normal carpal articulations Normal carpometacarpal articulation of the thumb. Normal second through fifth carpometacarpal joints. Normal metacarpi. Normal metacarpophalangeal joint of the thumb. Normal interphalangeal joint of the thumb. Normal proximal and distal phalanges of the thumb. Normal metacarpophalangeal joints of the second through fifth fingers. There is diffuse articular joint space narrowing of the proximal and distal interphalangeal joints of the second through fifth fingers, but without erosive changes or periarticular soft tissue swelling. Normal phalanges of the second through fifth fingers. The soft tissue structures are unremarkable. RAD/Hand Min 3 Views IMPRESSION: Degenerative joint disease of the hand and wrist, as described above. Electronically Signed: Adrian Evans, at 13:10 EST , Service support ,
== END ==
PROVIDERS: PCP Family Medicine; Referring Provider Family Medicine; Visit Provider Family Medicine
DX: M19.049 Primary osteoarthritis, unspecified hand (principal)
CPT/HCPCS: 73130

== ENCOUNTER → 2020-10-14 14:19 | Outpatient (CLI) | payer MEDICARE, MEDICAID, SELFPAY ==
[2020-10-14 18:05] LABS: Erythrocyte Sedimentation Rate 68 mm/hr (0-30)
[2020-10-14 18:07] LABS: Absolute Neutrophil Count 5.9 X10^3/uL (2.0-7.7); Basophil# 0.06 X10^3/uL; Basophil% 0.7 % (0-1); Eosinophil# 0.24 X10^3/uL; Eosinophils% 2.8 % (0-5); Hematocrit 38.1 % (37-47); Hemoglobin 11.7 g/dL (12.0-15.0); Lymphocyte % 21.9 % (19-41); Mean Corp Hgb Conc 30.7 g/dL (32-36); Mean Corpuscular Hgb 27.3 pg (27.0-32.0); Monocyte# 0.61 X10^3/uL; NRBC Flagged by Analyzer 0 % (0-5); Neutrophil # 5.85 X10^3/uL (2.7-7.7); Neutrophil % 67.4 % (47-70); Platelet Count 442 K/mm3 (150-450); RBC Distribution Width CV 14.5 % (11.6-14.6); RBC Distribution Width SD 47.3 fl (35.1-43.9); Red Blood Count 4.28 M/mm3 (4.2-5.4); White Blood Count 8.7 K/mm3 (4.4-11.0)
[2020-10-14 18:23] LABS: Vitamin D,25 Hydroxy 38.1 ng/mL
[2020-10-14 18:32] LABS: ALB/GLOB Ratio 0.8 RATIO (0.9-2.4); AST(SGOT) 13 U/L (15-37); Alanine Aminotransfer ALT/SGPT 13 U/L (13-56); Albumin, Serum 3.5 g/dL (3.2-5.0); Alkaline Phosphatase 157 U/L (45-117); Anion Gap 7 (5-15); BUN 20 mg/dL (7-18); BUN/Creat Ratio 17.1 RATIO (10-20); Calcium,Total 9.3 mg/dL (8.5-10.1); Chloride 109 mmol/L (98-107); Cholesterol 181 mg/dL (200); Creatinine, Serum 1.17 mg/dL (0.55-1.02); EST Glomerular Filtration Rate 49 mL/min (>60); Est Glom Filt Rate - Afr Amer 59 mL/min (>60); Globulin 4.5 g/dL (2.2-4.2); Glucose 83 mg/dL (74-106); High Density Lipoprotein 57 mg/dL; Potassium 4.6 mmol/L (3.5-5.1); Sodium Level 138 mmol/L (136-145); Thyroid Stim Hormone (TSH) 0.96 uIU/mL (0.358-3.74); Triglycerides 91 mg/dL; Very Low Density Lipoprotein 18 mg/dL (5-40)
[2020-10-16 14:50] LABS: ANTINUCLEAR ANTIBODIES DIRECT Negative (Negative)
== END ==
PROVIDERS: PCP Family Medicine; Referring Provider Family Medicine; Visit Provider Family Medicine
DX: I10 Essential (primary) hypertension (principal); E78.5 Hyperlipidemia, unspecified; E55.9 Vitamin D deficiency, unspecified; M79.7 Fibromyalgia
CPT/HCPCS: 36415; 80053; 80061; 82306; 84443; 85025; 85652; 86038; 86140; 86431

== ENCOUNTER → 2020-11-26 15:39 | Outpatient (CLI) | payer MEDICARE, MEDICAID, SELFPAY ==
[2020-11-26 17:18] LABS: Amphetamine Urine VISTA NEGATIVE (<1000 ng/mL); Barbiturate Urine VISTA NEGATIVE (< 200 ng/mL); Benzodiazepine Urine VISTA NEGATIVE (< 200 ng/mL); Cocaine Urine VISTA NEGATIVE (< 300 ng/mL); Ecstacy Urine VISTA NEGATIVE (< 500 ng/mL); Methadone Urine VISTA NEGATIVE (< 300 ng/mL); PCP Urine VISTA NEGATIVE (< 25 ng/mL); THC Urine VISTA NEGATIVE (< 50 ng/mL); Vista UDS pH Range 6
== END ==
PROVIDERS: PCP Family Medicine; Referring Provider Anesthesiology Pain Medicine; Visit Provider Anesthesiology Pain Medicine
DX: F11.20 Opioid dependence, uncomplicated (principal)
CPT/HCPCS: 80307

== ENCOUNTER 2021-03-20 15:11 | Emergency (ER) | payer MEDICARE, MEDICAID, SELFPAY ==
[2021-03-20 15:13] VITALS: BP 193/74; PULSE 64; RESP 16; TEMP 36.6; O2SAT 99; BMI 23.8
--- NOTE | 2021-03-20 15:54 | EDS_ITS ---
HPI History of Present Illness Chief Complaint: Complaint Informant: patient Narrative Narrative: 8-year-old female presents the emergency [facility] out of concern for UTI. She has a history of bladder cancer and has a ileal conduit. She states that today she developed pain around it and noticed that her urine was dark and cloudy. She notes headache and nausea. She states that these are typical of her UTI symptoms which she reports getting frequently. However she states she has not had 1 for almost a year. [facility] Medical History (Updated 03/20/21 @ 16:[address] Jonas Holland, DO) Bladder cancer GERD (gastroesophageal reflux disease) Suprapubic catheter Suprapubic catheter Home Medications calcium carbonate-vitamin D3 [Calcium 600 + D(3)] 1 ea PO DAILY 04/02/18 [History Last Taken 07/29/19] cholecalciferol (vitamin D3) 50,000 unit PO FR 04/02/18 [History Last Taken 07/29/19] cyclobenzaprine 10 mg PO QHS 04/02/18 [History Last Taken 07/29/19] hydrocodone-acetaminophen [[place]] 1 ea PO BID 04/02/18 [History Last Taken 07/29/19] lisinopril [Prinivil] 20 mg PO QHS 04/02/18 [History Last Taken 07/29/19] omeprazole 40 mg PO DAILY 04/02/18 [History Last Taken 07/29/19] potassium citrate 10 mg PO BID 04/02/18 [History Last Taken 07/29/19] gabapentin [Neurontin] 300 mg PO BID 01/22/19 [History Last Taken 07/29/19] sertraline [Zoloft] 100 mg PO DAILY 03/04/19 [History Last Taken 07/29/19 25 mg] levofloxacin 500 mg PO DAILY #7 tab 03/20/21 [Rx Last Taken Unknown] Allergy/AdvReac Type Severity Reaction Status Date / Time Iodinated Contrast Media Allergy started Verified 04/28/20 07:08 [Iodinated Contrast Media - having [place] IV Dye] Penicillins Allergy Rash Verified 03/20/21 15:17 Sulfa (Sulfonamide Allergy Rash Verified 03/20/21 15:17 Antibiotics) amlodipine AdvReac nausea, Verified 03/20/21 15:17 htn, headaches ciprofloxacin [From Cipro] AdvReac stomach Verified 03/20/21 15:17 problems ciprofloxacin HCl AdvReac stomach Verified 03/20/21 15:17 [From Cipro] problems hydromorphone HCl AdvReac headache Verified 03/20/21 15:17 [From Dilaudid] nitrofurantoin AdvReac doesn't Verified 03/20/21 15:17 [From Macrobid] work nitrofurantoin AdvReac doesn't Verified 03/20/21 15:17 macrocrystalline work [From Macrobid] pramipexole AdvReac stomach Verified 03/20/21 15:17 problems sucralfate AdvReac can't Verified 03/20/21 15:17 swallow Surgical History (Updated 03/20/21 @ 15:[address] Jonas Holland DO) History of ileal conduit Social History (Updated 03/20/21 @ 15:[address] Jonas Holland DO) Smoking Status: Current every day smoker tobacco type: cigarettes substance use type: does not use ROS ROS ED Constitutional Constitutional ED: Denies chills or weight loss Eyes Eyes: Denies change in vision or diplopia ENT ENT ED: Denies ear pain, rhinorrhea or sore throat Cardiovascular Cardiovascular: Denies chest pain, orthopnea, palpitations or racing heartbeat Respiratory/Chest Respiratory/Chest: Denies cough, dyspnea or orthopnea Gastrointestinal Gastrointestinal: Reports abdominal pain and nausea; Denies diarrhea or vomiting Genitourinary Genitourinary ED: Denies dysuria, hematuria or urinary frequency Musculoskeletal Musculoskeletal: Denies arthralgias or myalgias Integumentary Denies abscess or rash Neurologic Neurologic: Reports headache(s); Denies weakness Psychiatric Psychiatric: Denies anxiety, depression, suicidal ideation or suicidal thoughts Endocrine Endocrinology: Denies polydipsia, polyphagia or polyuria Allergic/Immunologic Allergic/Immunologic ED: Denies mouth swelling, tongue swelling or urticaria EXAM Physical Exam Const Vital Signs: 03/20/21 15:13 03/20/21 16:11 Temperature 98 F Temperature Source Temporal Pulse Rate 64 Respiratory Rate 16 Blood Pressure 193/74 H 184/78 H Blood Pressure Mean 113 113 Pulse Ox 99 Oxygen Delivery Method Room Air Positive well nourished and well developed General Appearance ED: well developed HEENT Reports normocephalic, head/scalp atraumatic and moist mucous membranes Eyes PERRL and EOMs intact bilaterally Neck no lymphadenopathy, supple and no JVD Resp normal respiratory effort and clear to auscultation bilaterally Cardio regular rate, regular rhythm and no murmurs GI non-tender GI Narrative: Tender to palpation along the ileal conduit. Palpation: soft and tender Back/Spine no CVA tenderness and normal ROM Extremity normal to inspection General Extremety ED: Negative for edema General Extremity: Negative for edema Neuro oriented x3 and CN's II-XII intact bilaterally Sensorium / Orientation: alert Motor Exam: strength 5/5 throughout Psych mental status grossly normal Mood & Affect: Negative for depressed or tearful Skin no rashes or lesions noted and no wounds MDM MDM MDM Narrative Medical decision making narrative: Patient's urine is nitrate positive. She is symptomatic. She will be treated with Levaquin which is what she prefers. Urine culture sent. Lab Data Attestation: I reviewed the patient's lab results. Labs: Laboratory Results - last 24 hr 03/20/21 15:25 Urine Color Yellow Urine Clarity Clear Urine pH 7.0 Ur Specific [place] 1.015 Urine Protein 30 H Urine Glucose (UA) Normal Urine Ketones Negative Urine Occult Blood 50 H Urine Nitrite Positive H Urine Bilirubin Negative Urine Urobilinogen Normal Ur Leukocyte Esterase 500 H Urine RBC 0-5 SEEN Urine WBC 5-10 SEEN Ur Squamous Epith Cells 0 SEEN Urine Bacteria RARE Hyaline Casts 0-5 SEEN Urine Mucus 0 SEEN Discharge Plan Triage Chief Complaint: Complaint ED Provider: Jonas Holland Dx/Rx/DC Orders Clinical Impression: UTI (urinary tract infection) Instructions: ED Bladder Infection, Female (Adult) Prescriptions: New levofloxacin [levofloxacin] 500 MG tablet 500 mg PO DAILY Qty: 7 RF: 0 No Action cyclobenzaprine 10 MG tablet 10 mg PO QHS RF: 0 hydrocodone-acetaminophen [[place]] 1 EACH tablet 1 ea PO BID RF: 0 calcium carbonate-vitamin D3 [Calcium 600 + D(3)] 1 EACH tablet 1 ea PO DAILY RF: 0 potassium citrate 10 MEQ tablet extended release 10 mg PO BID RF: 0 lisinopril [Prinivil] 10 MG tablet 20 mg PO QHS RF: 0 omeprazole 20 MG capsule 40 mg PO DAILY RF: 0 cholecalciferol (vitamin D3) 50,000 UNIT capsule 50,000 unit PO FR RF: 0 gabapentin [Neurontin] 300 MG capsule 300 mg PO BID RF: 0 sertraline [Zoloft] 25 MG tablet 100 mg PO DAILY RF: 0 Primary Care Provider: Antonio Mackey Referrals: Antonio Mackey MD [Primary Care Provider] - As Needed Disposition Disposition: Home, self care
[2021-03-20] MEDS: Ondansetron ODT 4 MG Tablet PO (16:08)
[2021-03-20 16:09] LABS: Mucous, Urine 0 SEEN /hpf (<or=2+); Squamous Epithelial Cells - UA 0 SEEN /hpf (5-10)
[2021-03-20] MEDS: HYDROcodone Bitartrate/Apap 5/325 Tablet PO (16:09)
[2021-03-20 16:11] VITALS: BP 184/78
[2021-03-20 16:27] LABS: Color, Urine Yellow (Yellow); Glucose, Dipstick Normal (Normal); Ketone-Dipstick Negative (Negative); Leukocyte Esterase-Dipstick 500 /ul (Negative); Nitrite-Dipstick Positive (Negative); Occult Blood-Urine 50 /ul (Negative); Protein-Dipstick 30 mg/dl (Negative); Specific Gravity, Urine 1.015 (1.002-1.030); Urine Bilirubin Dipstick Negative (Negative); Urine Clarity Clear (Clear); Urine Urobilinogen Normal (Normal)
[2021-03-20 16:35] LABS: Red Blood Cells-Urine 0-5 SEEN /hpf (0-5); White Blood Cells 5-10 SEEN /hpf (0-5)
[2021-03-20 16:36] LABS: Bacteria RARE /hpf (None Seen); Hyaline Cast 0-5 SEEN /lpf (0-5)
--- NOTE | 2021-03-20 17:05 | ED.RN ---
pt understands dc instructions. loaiza emptied at dc. pt pleasant with RN
== END 2021-03-20 17:05 | disposition home or self-care (01) ==
PROVIDERS: Emergency Provider Emergency Medicine; PCP Family Medicine
DX: N39.0 Urinary tract infection, site not specified (principal); F17.210 Nicotine dependence, cigarettes, uncomplicated; K21.9 Gastro-esophageal reflux disease without esophagitis; Z79.899 Other long term (current) drug therapy
CPT/HCPCS: 81001; 87077; 87086; 87088; 87186; 99285

== ENCOUNTER 2021-03-23 09:06 | Emergency (ER) | payer MEDICARE, MEDICAID, SELFPAY ==
[2021-03-23 09:06] VITALS: BP 132/104; PULSE 70; RESP 16; TEMP 36.6; O2SAT 98
[2021-03-23 09:07] VITALS: BP 132/104; PULSE 70; RESP 16; TEMP 36.6; O2SAT 98; BMI 23.8
[2021-03-23 09:10] VITALS: BP 121/82; PULSE 67; RESP 16; TEMP 36.6; O2SAT 100
--- NOTE | 2021-03-23 09:16 | EX.ED.DYSGE1 ---
HPI History of Present Illness Chief Complaint: Complaint Informant: patient and EMS Narrative Narrative: states that she has persistent UTI symptoms.71-year-old female Patient has a ileal conduit with indwelling catheter. She was seen on Tuesday and diagnosed with a UTI having had nitrate positive urine. Culture reveals E. coli and Citrobacter koseri. She was started on Levaquin and the sensitivities returned that both those bacteria are sensitive to it. She notes lower abdominal discomfort and diarrhea. continued nausea She denies any fevers. She states she feels weak. She notes pain in her low back which is chronic for her. Patient reports being under a great deal of stress as her son is selling the house she is living in. [facility] Medical History Bladder cancer GERD (gastroesophageal reflux disease) Suprapubic catheter Suprapubic catheter Home Medications calcium carbonate-vitamin D3 [Calcium 600 + D(3)] 1 ea PO DAILY 04/02/18 [History Last Taken 07/29/19] cholecalciferol (vitamin D3) 50,000 unit PO FR 04/02/18 [History Last Taken 07/29/19] cyclobenzaprine 10 mg PO QHS 04/02/18 [History Last Taken 07/29/19] hydrocodone-acetaminophen [[place]] 1 ea PO BID 04/02/18 [History Last Taken 07/29/19] lisinopril [Prinivil] 20 mg PO QHS 04/02/18 [History Last Taken 07/29/19] omeprazole 40 mg PO DAILY 04/02/18 [History Last Taken 07/29/19] potassium citrate 10 mg PO BID 04/02/18 [History Last Taken 07/29/19] gabapentin [Neurontin] 300 mg PO BID 01/22/19 [History Last Taken 07/29/19] sertraline [Zoloft] 100 mg PO DAILY 03/04/19 [History Last Taken 07/29/19 25 mg] levofloxacin 500 mg PO DAILY #7 tab 03/20/21 [Rx Last Taken Unknown] levofloxacin 750 mg PO DAILY #7 tab 03/23/21 [Rx Last Taken Unknown] ondansetron 4 mg PO Q8H PRN PRN #15 tab 03/23/21 [Rx Last Taken Unknown] Allergy/AdvReac Type Severity Reaction Status Date / Time Iodinated Contrast Media Allergy started Verified 03/23/21 09:11 [Iodinated Contrast Media - having [place] IV Dye] Penicillins Allergy Rash Verified 03/23/21 09:11 Sulfa (Sulfonamide Allergy Rash Verified 03/23/21 09:11 Antibiotics) amlodipine AdvReac nausea, Verified 03/23/21 09:11 htn, headaches ciprofloxacin [From Cipro] AdvReac stomach Verified 03/23/21 09:11 problems ciprofloxacin HCl AdvReac stomach Verified 03/23/21 09:11 [From Cipro] problems hydromorphone HCl AdvReac headache Verified 03/23/21 09:11 [From Dilaudid] nitrofurantoin AdvReac doesn't Verified 03/23/21 09:11 [From Macrobid] work nitrofurantoin AdvReac doesn't Verified 03/23/21 09:11 macrocrystalline work [From Macrobid] pramipexole AdvReac stomach Verified 03/23/21 09:11 problems sucralfate AdvReac can't Verified 03/23/21 09:11 swallow Surgical History History of ileal conduit Social History Smoking Status: Current every day smoker tobacco type: cigarettes substance use type: does not use ROS ROS ED Constitutional Constitutional ED: Reports other Details: Generalized weakness ; Denies chills or weight loss Eyes Eyes: Denies change in vision or diplopia ENT ENT ED: Denies ear pain, rhinorrhea or sore throat Cardiovascular Cardiovascular: Denies chest pain, orthopnea, palpitations or racing heartbeat Respiratory/Chest Respiratory/Chest: Denies cough, dyspnea or orthopnea Gastrointestinal Gastrointestinal: Reports abdominal pain, diarrhea and nausea; Denies vomiting Genitourinary Genitourinary ED: Denies dysuria, hematuria or urinary frequency Musculoskeletal Musculoskeletal: Reports back pain; Denies arthralgias or myalgias Integumentary Denies abscess or rash Neurologic Neurologic: Denies headache(s) or weakness Psychiatric Psychiatric: Denies anxiety, depression, suicidal ideation or suicidal thoughts Endocrine Endocrinology: Denies polydipsia, polyphagia or polyuria Allergic/Immunologic Allergic/Immunologic ED: Denies mouth swelling, tongue swelling or urticaria EXAM Physical Exam Const Vital Signs: 03/23/21 09:06 03/23/21 09:07 03/23/21 09:10 Temperature 98 F 98 F 98 F Temperature Source Oral Oral Oral Pulse Rate 70 70 67 Respiratory Rate 16 16 16 Blood Pressure 132/104 H 132/104 H 121/82 H Blood Pressure Mean 113 113 95 Pulse Ox 98 98 100 Oxygen Delivery Method Room Air Room Air Room Air Positive well nourished and well developed General Appearance ED: well developed HEENT Reports normocephalic, head/scalp atraumatic and moist mucous membranes Eyes PERRL and EOMs intact bilaterally Neck no lymphadenopathy, supple and no JVD Resp normal respiratory effort and clear to auscultation bilaterally Cardio regular rate, regular rhythm and no murmurs GI normal to inspection, nondistended, normoactive bowel sounds Palpation: soft and tender LLQ, RLQ and suprapubic; Negative for guarding or rebound tenderness present Back/Spine no CVA tenderness and normal ROM Extremity normal to inspection General Extremety ED: Negative for edema General Extremity: Negative for edema Neuro oriented x3 and CN's II-XII intact bilaterally Sensorium / Orientation: alert Motor Exam: strength 5/5 throughout Psych mental status grossly normal Mood & Affect: Negative for depressed or tearful Skin no rashes or lesions noted and no wounds MDM MDM MDM Narrative Medical decision making narrative: Patient's white count is normal. Creatinine is slightly elevated 1.57. She received a liter of IV fluids some Zofran and morphine. Urinalysis is now nitrate negative. Still with only 5-10 white cells but now there is 2+ bacteria. Her urine culture and sensitivities suggest that Levaquin is the one of the most appropriate antibiotics for her. Increase her dose to 750 a day and also write for some Zofran for her nausea. Lab Data Labs: Laboratory Results - last 24 hr 03/23/21 03/23/21 03/23/21 09:12 09:12 09:12 WBC 9.7 RBC 5.37 Hgb 14.6 Hct 46.0 MCV 85.7 MCH 27.2 MCHC 31.7 L RDW Std Deviation 47.0 H RDW Coeff of Kevin 15.2 H Plt Count 423 MPV 9.4 Immature Gran % (Auto) 0.500 Neut % (Auto) 62.5 Lymph % (Auto) 28.1 [place] % (Auto) 6.9 Eos % (Auto) 1.5 Baso % (Auto) 0.5 Absolute Neuts (auto) 6.1 Absolute Lymphs (auto) 2.73 Nucleated RBC % 0 PT 12.5 INR 1.0 APTT 27.6 Sodium 137 Potassium 4.0 Chloride 101 Carbon Dioxide 23.0 Anion Gap 13 BUN 26 H Creatinine 1.57 H Estim Creat Clear Calc 27.58 Est GFR (MDRD) Af Amer 42 L Est GFR (MDRD) Non-Af 35 L BUN/Creatinine Ratio 16.6 Glucose 93 Lactic Acid Calcium 9.7 Total Bilirubin 0.30 AST 23 ALT 15 Alkaline Phosphatase 131 H Total Protein 8.6 H Albumin 4.0 Globulin 4.6 H Albumin/Globulin Ratio 0.9 Lipase 160 Urine Color Urine Clarity Urine pH Ur Specific [place] Urine Protein Urine Glucose (UA) Urine Ketones Urine Occult Blood Urine Nitrite Urine Bilirubin Urine Urobilinogen Ur Leukocyte Esterase Urine RBC Urine WBC Ur Squamous Epith Cells Urine Bacteria Urine Mucus 03/23/21 03/23/21 09:12 09:12 WBC RBC Hgb Hct MCV MCH MCHC RDW Std Deviation RDW Coeff of Kevin Plt Count MPV Immature Gran % (Auto) Neut % (Auto) Lymph % (Auto) [place] % (Auto) Eos % (Auto) Baso % (Auto) Absolute Neuts (auto) Absolute Lymphs (auto) Nucleated RBC % PT INR APTT Sodium Potassium Chloride Carbon Dioxide Anion Gap BUN Creatinine Estim Creat Clear Calc Est GFR (MDRD) Af Amer Est GFR (MDRD) Non-Af BUN/Creatinine Ratio Glucose Lactic Acid 1.3 Calcium Total Bilirubin AST ALT Alkaline Phosphatase Total Protein Albumin Globulin Albumin/Globulin Ratio Lipase Urine Color Yellow Urine Clarity Sl. Cloudy Urine pH 7.0 Ur Specific [place] 1.015 Urine Protein 30 H Urine Glucose (UA) Normal Urine Ketones 15 H Urine Occult Blood 25 H Urine Nitrite Negative Urine Bilirubin Negative Urine Urobilinogen Normal Ur Leukocyte Esterase 25 H Urine RBC 0-5 SEEN Urine WBC 5-10 SEEN Ur Squamous Epith Cells 0-5 SEEN Urine Bacteria 2+ Urine Mucus 0 SEEN Radiography Diagnostic Testing: Radiology Impression Abdomen/Pelvis CT 03/23/21 10:11 IMPRESSION: Stable examination. Status post cystectomy with ileostomy in the right lower quadrant. Stable moderate size right inguinal hernia containing nondilated bowel loops. Electronically Signed: Adrian Evans MD at 11:08 EDT , Service support , Discharge Plan Triage Chief Complaint: Complaint ED Provider: Jonas Holland Dx/Rx/DC Orders Clinical Impression: UTI (urinary tract infection), Diarrhea Prescriptions: New levofloxacin 750 mg tablet 750 mg PO DAILY Qty: 7 RF: 0 ondansetron [ondansetron] 4 MG tablet 4 mg PO Q8H PRN PRN (Reason: Nausea) Qty: 15 RF: 0 No Action cyclobenzaprine 10 MG tablet 10 mg PO QHS RF: 0 hydrocodone-acetaminophen [[place]] 1 EACH tablet 1 ea PO BID RF: 0 calcium carbonate-vitamin D3 [Calcium 600 + D(3)] 1 EACH tablet 1 ea PO DAILY RF: 0 potassium citrate 10 MEQ tablet extended release 10 mg PO BID RF: 0 lisinopril [Prinivil] 10 MG tablet 20 mg PO QHS RF: 0 omeprazole 20 MG capsule 40 mg PO DAILY RF: 0 cholecalciferol (vitamin D3) 50,000 UNIT capsule 50,000 unit PO FR RF: 0 gabapentin [Neurontin] 300 MG capsule 300 mg PO BID RF: 0 sertraline [Zoloft] 25 MG tablet 100 mg PO DAILY RF: 0 levofloxacin [levofloxacin] 500 MG tablet 500 mg PO DAILY Qty: 7 RF: 0 Primary Care Provider: Antonio Mackey Referrals: Antonio Mackey MD [Primary Care Provider] - 3-5 Days Disposition Disposition: Home, self care
[2021-03-23] MEDS: Ondansetron 4 MG/2 ML Vial IV (09:25)
[2021-03-23] MEDS: 0.9% Normal Saline 1,000 ML 1000 ML IV (09:25)
[2021-03-23 09:27] LABS: Mucous, Urine 0 SEEN /hpf (<or=2+)
[2021-03-23 09:33] LABS: Color, Urine Yellow (Yellow); Glucose, Dipstick Normal (Normal); Ketone-Dipstick 15 mg/dl (Negative); Leukocyte Esterase-Dipstick 25 /ul (Negative); Nitrite-Dipstick Negative (Negative); Occult Blood-Urine 25 /ul (Negative); Protein-Dipstick 30 mg/dl (Negative); Specific Gravity, Urine 1.015 (1.002-1.030); Urine Bilirubin Dipstick Negative (Negative); Urine Clarity Sl. Cloudy (Clear); Urine Urobilinogen Normal (Normal)
[2021-03-23] MEDS: Morphine 2 MG/ML Syringe IV (09:35)
[2021-03-23 09:38] LABS: Bacteria 2+ /hpf (None Seen); Red Blood Cells-Urine 0-5 SEEN /hpf (0-5); Squamous Epithelial Cells - UA 0-5 SEEN /hpf (5-10); White Blood Cells 5-10 SEEN /hpf (0-5)
[2021-03-23 09:46] LABS: Absolute Lymphocyte Count 2.73 X10^3/uL (0.83-4.51); Absolute Neutrophil Count 6.1 X10^3/uL (2.0-7.7); Basophil# 0.05 X10^3/uL; Basophil% 0.5 % (0-1); Eosinophil# 0.15 X10^3/uL; Eosinophils% 1.5 % (0-5); Hemoglobin 14.6 g/dL (12.0-15.0); Lymphocyte # 2.73 X10^3/ul (0.83-4.51); Lymphocyte % 28.1 % (19-41); Mean Corp Hgb Conc 31.7 g/dL (32-36); Mean Corpuscular Hgb 27.2 pg (27.0-32.0); Mean Corpuscular Volume 85.7 fL (81-99); Mean Platelet Vol. 9.4 fl (6.2-12.0); Monocyte# 0.67 X10^3/uL; Monocyte% 6.9 % (0-10); NRBC Flagged by Analyzer 0 % (0-5); Neutrophil # 6.07 X10^3/uL (2.7-7.7); Neutrophil % 62.5 % (47-70); Platelet Count 423 K/mm3 (150-450); RBC Distribution Width CV 15.2 % (11.6-14.6); Red Blood Count 5.37 M/mm3 (4.2-5.4); White Blood Count 9.7 K/mm3 (4.4-11.0)
[2021-03-23 09:50] LABS: Prothrombin Time (Protime)PT. 12.5 SECONDS (11.7-14.9)
[2021-03-23 09:51] LABS: Partial Thromboplast Time 27.6 Seconds (24.1-36.2)
[2021-03-23 09:54] LABS: ALB/GLOB Ratio 0.9 RATIO (0.9-2.4); AST(SGOT) 23 U/L (15-37); Alanine Aminotransfer ALT/SGPT 15 U/L (13-56); Alkaline Phosphatase 131 U/L (45-117); Anion Gap 13 (5-15); BUN 26 mg/dL (7-18); BUN/Creat Ratio 16.6 RATIO (10-20); Calcium,Total 9.7 mg/dL (8.5-10.1); Chloride 101 mmol/L (98-107); Creatinine, Serum 1.57 mg/dL (0.55-1.02); EST Glomerular Filtration Rate 35 mL/min (>60); Est Glom Filt Rate - Afr Amer 42 mL/min (>60); Estimated Creatinine Clearance 27.58 ml/min; Globulin 4.6 g/dL (2.2-4.2); Glucose 93 mg/dL (74-106); Lipase 160 U/L (73-393); Protein, Total 8.6 g/dL (6.4-8.2); Sodium Level 137 mmol/L (136-145)
[2021-03-23 09:55] LABS: Lactic Acid 1.3 mmol/L (0.4-1.9)
--- NOTE | 2021-03-23 10:11 | CT_ITS ---
STUDY: CT ABDOMEN AND PELVIS WITHOUT CONTRAST REASON FOR EXAM: Female, 71 years old. History of UTI. Abdominal pain and nausea. Patient has a history of bladder cancer. RADIATION DOSAGE (If Supplied By Facility): CTDIvol = ( 6.22 ) mGy, DLP = ( 267.52 ) mGycm TECHNIQUE: Transaxial images were obtained from the dome of the diaphragm to the symphysis pubis without oral contrast, and without intravenous contrast. Sagittal and coronal images were reconstructed. Individualized dose optimization techniques were used for this CT. COMPARISON: Comparison is made with prior examination dated 05/08/2020. FINDINGS: Stable mild degree of increased markings at the lung bases suggestive of scarring. The previously seen 5.9 mm nodule in the lateral aspect of the right lower lobe is vaguely seen at this time due to the localization of the scan. Coronary artery calcification. Normal liver. The patient is status post cholecystectomy. Normal spleen. Normal pancreas. There is a small, circumscribed, smooth, low attenuation left adrenal mass, consistent with an adrenal adenoma. This measures 2.4 cm x 2.6 cm. This is essentially unchanged. Normal right adrenal gland. Mild degree of bilateral hydronephrosis slightly more prominent on the right side. Normal visualized stomach. Normal small intestine. Normal colon. The appendix is visualized and appears normal. There is diffuse atherosclerotic calcification of the abdominal aorta and its major visceral branches, without a demonstrated aneurysm. Normal inferior vena cava. Normal retroperitoneum. The patient is status post cystectomy. An ileal loop is seen in the right lower quadrant with herniation of nondilated small bowel is at the ostomy site. This is unchanged. The patient is status post hysterectomy. Stable moderate size right inguinal hernia. There are diffuse degenerative changes of the visualized lumbar spine. CT/Abdomen/Pelvis without Cont IMPRESSION: Stable examination. Status post cystectomy with ileostomy in the right lower quadrant. Stable moderate size right inguinal hernia containing nondilated bowel loops. Electronically Signed: Adrian Evans MD at 11:08 EDT , Service support ,
[2021-03-23 11:37] VITALS: BP 135/62; PULSE 66; O2SAT 100
== END 2021-03-23 11:40 | disposition home or self-care (01) ==
PROVIDERS: Emergency Provider Emergency Medicine; PCP Family Medicine
DX: N39.0 Urinary tract infection, site not specified (principal); R19.7 Diarrhea, unspecified; K21.9 Gastro-esophageal reflux disease without esophagitis; F17.210 Nicotine dependence, cigarettes, uncomplicated; Z93.2 Ileostomy status; Z79.2 Long term (current) use of antibiotics; Z79.899 Other long term (current) drug therapy
CPT/HCPCS: 74176; 80053; 81001; 83605; 83690; 85025; 85610; 85730; 96374; 96375; 99285; J7030; J2405

== ENCOUNTER → 2021-05-13 14:42 | Outpatient (CLI) | payer MEDICARE, MEDICAID, SELFPAY ==
[2021-05-13 17:50] LABS: Absolute Lymphocyte Count 2.27 X10^3/uL (0.83-4.51); Absolute Neutrophil Count 5.4 X10^3/uL (2.0-7.7); Basophil# 0.05 X10^3/uL; Basophil% 0.6 % (0-1); Eosinophil# 0.28 X10^3/uL; Eosinophils% 3.3 % (0-5); Hematocrit 40.5 % (37-47); Hemoglobin 12.5 g/dL (12.0-15.0); Lymphocyte # 2.27 X10^3/ul (0.83-4.51); Lymphocyte % 26.6 % (19-41); Mean Corp Hgb Conc 30.9 g/dL (32-36); Mean Corpuscular Hgb 27.3 pg (27.0-32.0); Mean Corpuscular Volume 88.4 fL (81-99); Mean Platelet Vol. 9.6 fl (6.2-12.0); Monocyte# 0.49 X10^3/uL; Monocyte% 5.7 % (0-10); NRBC Flagged by Analyzer 0 % (0-5); Neutrophil # 5.41 X10^3/uL (2.7-7.7); Neutrophil % 63.4 % (47-70); Platelet Count 366 K/mm3 (150-450); RBC Distribution Width CV 14.8 % (11.6-14.6); RBC Distribution Width SD 47.5 fl (35.1-43.9); Red Blood Count 4.58 M/mm3 (4.2-5.4); White Blood Count 8.5 K/mm3 (4.4-11.0)
[2021-05-13 18:08] LABS: Vitamin D,25 Hydroxy 46.4 ng/mL
[2021-05-13 18:19] LABS: ALB/GLOB Ratio 0.8 RATIO (0.9-2.4); AST(SGOT) 16 U/L (15-37); Alanine Aminotransfer ALT/SGPT 15 U/L (13-56); Albumin, Serum 3.6 g/dL (3.2-5.0); Alkaline Phosphatase 129 U/L (45-117); Anion Gap 9 (5-15); BUN 19 mg/dL (7-18); BUN/Creat Ratio 16.8 RATIO (10-20); Calcium,Total 9.3 mg/dL (8.5-10.1); Chloride 106 mmol/L (98-107); Cholesterol 173 mg/dL (200); Creatinine, Serum 1.13 mg/dL (0.55-1.02); EST Glomerular Filtration Rate 51 mL/min (>60); Est Glom Filt Rate - Afr Amer 61 mL/min (>60); Globulin 4.3 g/dL (2.2-4.2); Glucose 78 mg/dL (74-106); High Density Lipoprotein 59 mg/dL; Phosphorus 3.7 mg/dL (2.5-4.9); Potassium 4.5 mmol/L (3.5-5.1); Protein, Total 7.9 g/dL (6.4-8.2); Sodium Level 137 mmol/L (136-145); Thyroid Stim Hormone (TSH) 1.14 uIU/mL (0.358-3.74); Triglycerides 94 mg/dL; Very Low Density Lipoprotein 19 mg/dL (5-40)
[2021-05-14 08:13] LABS: PTHIN 58.1 pg/mL (18.4-80.1)
== END ==
PROVIDERS: PCP Family Medicine; Referring Provider Family Medicine; Visit Provider Family Medicine
DX: I12.9 Hypertensive chronic kidney disease with stage 1 through stage 4 chronic kidney disease, or unspecified chronic kidney disease (principal); N18.2 Chronic kidney disease, stage 2 (mild); E55.9 Vitamin D deficiency, unspecified
CPT/HCPCS: 36415; 80053; 80061; 82306; 83970; 84100; 84443; 85025

== ENCOUNTER → 2023-12-09 | Outpatient (CLI) | payer MEDICARE, MEDICAID, SELFPAY ==
[2023-12-09 11:37] LABS: Squamous Epithelial Cells - UA 0 SEEN /hpf (5-10)
[2023-12-09 15:42] LABS: Absolute Lymphocyte Count 2.47 X10^3/uL (0.83-4.51); Absolute Neutrophil Count 7.7 X10^3/uL (2.0-7.7); Basophil# 0.07 X10^3/uL; Basophil% 0.6 % (0-1); Eosinophil# 0.19 X10^3/uL; Eosinophils% 1.7 % (0-5); Hematocrit 37.7 % (37-47); Hemoglobin 11.6 g/dL (12.0-15.0); Lymphocyte # 2.47 X10^3/ul (0.83-4.51); Lymphocyte % 21.9 % (19-41); Mean Corp Hgb Conc 30.8 g/dL (32-36); Mean Corpuscular Hgb 27.4 pg (27.0-32.0); Mean Corpuscular Volume 89.1 fL (81-99); Monocyte% 7.1 % (0-10); NRBC Flagged by Analyzer 0 % (0-5); Neutrophil # 7.69 X10^3/uL (2.7-7.7); Neutrophil % 68.3 % (47-70); POSITIVE MORPHOLOGY YES; Platelet Count 392 K/mm3 (150-450); RBC Distribution Width CV 22.4 % (11.6-14.6); RBC Distribution Width SD 71.8 fl (35.1-43.9); Red Blood Count 4.23 M/mm3 (4.2-5.4); White Blood Count 11.3 K/mm3 (4.4-11.0)
[2023-12-09 15:45] LABS: Differential Indicated SCAN CRITERIA MET
[2023-12-09 15:51] LABS: Color, Urine Yellow (Yellow); Glucose, Dipstick Normal (Normal); Ketone-Dipstick Negative (Negative); Leukocyte Esterase-Dipstick 100 /ul (Negative); Nitrite-Dipstick Negative (Negative); Occult Blood-Urine 50 /ul (Negative); Protein-Dipstick 30 mg/dl (Negative); Urine Bilirubin Dipstick Negative (Negative); Urine Clarity Cloudy (Clear); Urine Urobilinogen Normal (Normal)
[2023-12-09 16:04] LABS: Vitamin D,25 Hydroxy 35.1 ng/mL
[2023-12-09 16:11] LABS: Red Blood Cells-Urine 5-10 SEEN /hpf (0-5); White Blood Cells 50-100 SEEN /hpf (0-5)
[2023-12-09 16:12] LABS: Bacteria 4+ /hpf (None Seen); Mucous, Urine 3+ /hpf (<or=2+)
[2023-12-09 16:13] LABS: ALB/GLOB Ratio 0.9 RATIO (0.9-2.4); AST(SGOT) 17 U/L (15-37); Alanine Aminotransfer ALT/SGPT 24 U/L (13-56); Albumin, Serum 3.7 g/dL (3.2-5.0); Alkaline Phosphatase 91 U/L (45-117); Anion Gap 4 (5-15); BUN 22 mg/dL (7-18); Calcium,Total 9.2 mg/dL (8.5-10.1); Chloride 112 mmol/L (98-107); Cholesterol 163 mg/dL (200); EST Glomerular Filtration Rate 52 mL/min (>60); Est Glom Filt Rate - Afr Amer 63 mL/min (>60); Glucose 85 mg/dL (74-106); High Density Lipoprotein 67 mg/dL; Magnesium 2.1 mg/dL (1.6-2.6); Potassium 4.5 mmol/L (3.5-5.1); Protein, Total 7.7 g/dL (6.4-8.2); Sodium Level 139 mmol/L (136-145); Thyroid Stim Hormone (TSH) 1.37 uIU/mL (0.358-3.74); Triglycerides 102 mg/dL; Very Low Density Lipoprotein 20 mg/dL (5-40)
[2023-12-09 16:20] LABS: Differential Comment SCANNED
[2023-12-13 17:24] LABS: Ferritin 25 ng/mL (8-252); Iron 23 ug/dL (50-170); Iron Binding Capacity,Total 398 ug/dL (250-450); PERCENT IRON SATURATION 5.8 % (15.0-55.0); Vitamin B12 382 pg/mL (211-911)
== END | disposition home or self-care (01) ==
LOC: MFPLAB 11:35
PROVIDERS: PCP Family Medicine; Visit Provider Family Medicine
DX: D64.9 Anemia, unspecified (principal); E55.9 Vitamin D deficiency, unspecified; I10 Essential (primary) hypertension
CPT/HCPCS: 36415; 80053; 80061; 81001; 82306; 82607; 82728; 83540; 83550; 83735; 84443; 85025

== ENCOUNTER → 2024-01-13 | Outpatient (CLI) | payer MEDICARE, MEDICAID, SELFPAY ==
[2024-01-13 15:52] LABS: Absolute Lymphocyte Count 2.17 X10^3/uL (0.83-4.51); Absolute Neutrophil Count 5.7 X10^3/uL (2.0-7.7); Basophil# 0.06 X10^3/uL; Basophil% 0.7 % (0-1); Eosinophil# 0.25 X10^3/uL; Eosinophils% 2.8 % (0-5); Hematocrit 38.5 % (37-47); Hemoglobin 11.7 g/dL (12.0-15.0); Lymphocyte # 2.17 X10^3/ul (0.83-4.51); Lymphocyte % 24.4 % (19-41); Mean Corp Hgb Conc 30.4 g/dL (32-36); Mean Corpuscular Hgb 28.3 pg (27.0-32.0); Mean Corpuscular Volume 93.2 fL (81-99); Mean Platelet Vol. 8.5 fl (6.2-12.0); Monocyte# 0.66 X10^3/uL; Monocyte% 7.4 % (0-10); NRBC Flagged by Analyzer 0 % (0-5); Neutrophil # 5.72 X10^3/uL (2.7-7.7); Neutrophil % 64.4 % (47-70); Platelet Count 401 K/mm3 (150-450); RBC Distribution Width CV 17.2 % (11.6-14.6); RBC Distribution Width SD 57.2 fl (35.1-43.9); Red Blood Count 4.13 M/mm3 (4.2-5.4); White Blood Count 8.9 K/mm3 (4.4-11.0)
[2024-01-13 16:35] LABS: Anion Gap 5 (5-15); BUN 28 mg/dL (7-18); BUN/Creat Ratio 18.9 RATIO (10-20); Calcium,Total 9.4 mg/dL (8.5-10.1); Chloride 110 mmol/L (98-107); Creatinine, Serum 1.48 mg/dL (0.55-1.02); EST Glomerular Filtration Rate 37 mL/min (>60); Est Glom Filt Rate - Afr Amer 45 mL/min (>60); Ferritin 40 ng/mL (8-252); Glucose 79 mg/dL (74-106); Iron 41 ug/dL (50-170); Iron Binding Capacity,Total 366 ug/dL (250-450); Sodium Level 139 mmol/L (136-145)
== END | disposition home or self-care (01) ==
LOC: MFPLAB 12:09
PROVIDERS: PCP Family Medicine; Visit Provider Family Medicine
DX: D64.9 Anemia, unspecified (principal); N18.2 Chronic kidney disease, stage 2 (mild)
CPT/HCPCS: 36415; 80048; 82728; 83540; 83550; 85025

== ENCOUNTER → 2024-01-20 | Outpatient (CLI) | payer MEDICARE, MEDICAID, SELFPAY ==
[2024-01-20 13:01] LABS: Anion Gap 1 (5-15); BUN 24 mg/dL (7-18); BUN/Creat Ratio 18.2 RATIO (10-20); Calcium,Total 9.5 mg/dL (8.5-10.1); Chloride 113 mmol/L (98-107); Creatinine, Serum 1.32 mg/dL (0.55-1.02); EST Glomerular Filtration Rate 42 mL/min (>60); Est Glom Filt Rate - Afr Amer 51 mL/min (>60); Glucose 92 mg/dL (74-106); Potassium 5.1 mmol/L (3.5-5.1); Sodium Level 139 mmol/L (136-145)
== END | disposition home or self-care (01) ==
LOC: MFPLAB 10:15
PROVIDERS: PCP Family Medicine; Visit Provider Family Medicine
DX: N18.2 Chronic kidney disease, stage 2 (mild) (principal)
CPT/HCPCS: 36415; 80048

== ENCOUNTER → 2024-02-10 | Outpatient (CLI) | payer MEDICARE, MEDICAID, SELFPAY ==
[2024-02-10 10:03] LABS: Erythrocyte Sedimentation Rate 45 mm/hr (0-30)
[2024-02-10 10:05] LABS: Absolute Lymphocyte Count 1.81 X10^3/uL (0.83-4.51); Absolute Neutrophil Count 5.1 X10^3/uL (2.0-7.7); Basophil# 0.07 X10^3/uL; Basophil% 0.9 % (0-1); Eosinophil# 0.24 X10^3/uL; Eosinophils% 3.1 % (0-5); Hematocrit 38.6 % (37-47); Hemoglobin 11.8 g/dL (12.0-15.0); Lymphocyte # 1.81 X10^3/ul (0.83-4.51); Lymphocyte % 23.3 % (19-41); Mean Corp Hgb Conc 30.6 g/dL (32-36); Mean Corpuscular Hgb 28.6 pg (27.0-32.0); Mean Corpuscular Volume 93.5 fL (81-99); Mean Platelet Vol. 8.6 fl (6.2-12.0); Monocyte# 0.53 X10^3/uL; Monocyte% 6.8 % (0-10); NRBC Flagged by Analyzer 0 % (0-5); Neutrophil # 5.07 X10^3/uL (2.7-7.7); Neutrophil % 65.4 % (47-70); Platelet Count 358 K/mm3 (150-450); RBC Distribution Width CV 15.8 % (11.6-14.6); Red Blood Count 4.13 M/mm3 (4.2-5.4); White Blood Count 7.8 K/mm3 (4.4-11.0)
[2024-02-10 10:16] LABS: ALB/GLOB Ratio 0.9 RATIO (0.9-2.4); AST(SGOT) 10 U/L (15-37); Alanine Aminotransfer ALT/SGPT 21 U/L (13-56); Albumin, Serum 3.5 g/dL (3.2-5.0); Alkaline Phosphatase 112 U/L (45-117); Anion Gap 4 (5-15); BUN 23 mg/dL (7-18); BUN/Creat Ratio 16.4 RATIO (10-20); Calcium,Total 9.3 mg/dL (8.5-10.1); Chloride 110 mmol/L (98-107); EST Glomerular Filtration Rate 39 mL/min (>60); Est Glom Filt Rate - Afr Amer 47 mL/min (>60); Glucose 93 mg/dL (74-106); Potassium 5.2 mmol/L (3.5-5.1); Protein, Total 7.5 g/dL (6.4-8.2); Sodium Level 141 mmol/L (136-145)
== END | disposition home or self-care (01) ==
LOC: MTLAB 08:30
PROVIDERS: PCP Family Medicine
DX: M05.9 Rheumatoid arthritis with rheumatoid factor, unspecified (principal); Z51.81 Encounter for therapeutic drug level monitoring; Z79.631 Long term (current) use of antimetabolite agent
CPT/HCPCS: 36415; 80053; 85025; 85652; 86140

== ENCOUNTER → 2024-04-11 | Outpatient (CLI) | payer MEDICARE, MEDICAID, SELFPAY ==
[2024-04-11 12:17] LABS: Absolute Lymphocyte Count 1.36 X10^3/uL (0.83-4.51); Absolute Neutrophil Count 5.4 X10^3/uL (2.0-7.7); Basophil# 0.05 X10^3/uL; Basophil% 0.6 % (0-1); Eosinophils% 3.8 % (0-5); Hematocrit 38.9 % (37-47); Hemoglobin 12.1 g/dL (12.0-15.0); Lymphocyte # 1.36 X10^3/ul (0.83-4.51); Lymphocyte % 17.2 % (19-41); Mean Corp Hgb Conc 31.1 g/dL (32-36); Mean Corpuscular Hgb 29.2 pg (27.0-32.0); Mean Corpuscular Volume 93.7 fL (81-99); Mean Platelet Vol. 9.2 fl (6.2-12.0); Monocyte# 0.78 X10^3/uL; Monocyte% 9.8 % (0-10); NRBC Flagged by Analyzer 0 % (0-5); Neutrophil % 68.1 % (47-70); Platelet Count 309 K/mm3 (150-450); RBC Distribution Width CV 17.4 % (11.6-14.6); RBC Distribution Width SD 58.1 fl (35.1-43.9); Red Blood Count 4.15 M/mm3 (4.2-5.4); White Blood Count 7.9 K/mm3 (4.4-11.0)
[2024-04-11 13:29] LABS: ALB/GLOB Ratio 0.9 RATIO (0.9-2.4); AST(SGOT) 14 U/L (15-37); Alanine Aminotransfer ALT/SGPT 20 U/L (13-56); Albumin, Serum 3.6 g/dL (3.2-5.0); Alkaline Phosphatase 123 U/L (45-117); Anion Gap 7 (5-15); BUN 38 mg/dL (7-18); BUN/Creat Ratio 20.7 RATIO (10-20); Calcium,Total 9.3 mg/dL (8.5-10.1); Chloride 111 mmol/L (98-107); Creatinine, Serum 1.84 mg/dL (0.55-1.02); EST Glomerular Filtration Rate 29 mL/min (>60); Est Glom Filt Rate - Afr Amer 35 mL/min (>60); Ferritin 59 ng/mL (8-252); Globulin 3.9 g/dL (2.2-4.2); Glucose 97 mg/dL (74-106); Iron 32 ug/dL (50-170); Iron Binding Capacity,Total 347 ug/dL (250-450); Potassium 4.6 mmol/L (3.5-5.1); Protein, Total 7.5 g/dL (6.4-8.2); Sodium Level 136 mmol/L (136-145); T4 Free Direct 0.97 ng/dL (0.76-1.46); Thyroid Stim Hormone (TSH) 1.25 uIU/mL (0.358-3.74)
[2024-04-12 15:25] LABS: Vitamin B12 397 pg/mL (211-911); Vitamin D,25 Hydroxy 26.9 ng/mL
== END | disposition home or self-care (01) ==
LOC: MFPLAB 09:44
PROVIDERS: PCP Family Medicine; Visit Provider Family Medicine
DX: E55.9 Vitamin D deficiency, unspecified (principal); R53.83 Other fatigue; D64.9 Anemia, unspecified
CPT/HCPCS: 36415; 80053; 82306; 82607; 82728; 82746; 83540; 83550; 84439; 84443; 85025

== ENCOUNTER → 2024-07-27 | Outpatient (CLI) | payer MEDICARE, MEDICAID, SELFPAY ==
[2024-07-27 17:41] LABS: Absolute Lymphocyte Count 0.99 X10^3/uL (0.83-4.51); Absolute Neutrophil Count 6.8 X10^3/uL (2.0-7.7); Basophil# 0.09 X10^3/uL; Basophil% 1.1 % (0-1); Eosinophil# 0.06 X10^3/uL; Eosinophils% 0.7 % (0-5); Hematocrit 36.6 % (37-47); Hemoglobin 10.8 g/dL (12.0-15.0); Lymphocyte # 0.99 X10^3/ul (0.83-4.51); Lymphocyte % 11.7 % (19-41); Mean Corp Hgb Conc 29.5 g/dL (32-36); Mean Corpuscular Hgb 26.5 pg (27.0-32.0); Mean Corpuscular Volume 89.9 fL (81-99); Mean Platelet Vol. 9.3 fl (6.2-12.0); Monocyte# 0.55 X10^3/uL; Monocyte% 6.5 % (0-10); NRBC Flagged by Analyzer 0 % (0-5); Neutrophil # 6.75 X10^3/uL (2.7-7.7); Neutrophil % 79.6 % (47-70); Platelet Count 390 K/mm3 (150-450); RBC Distribution Width CV 15.5 % (11.6-14.6); RBC Distribution Width SD 51.2 fl (35.1-43.9); Red Blood Count 4.07 M/mm3 (4.2-5.4); White Blood Count 8.5 K/mm3 (4.4-11.0)
[2024-07-27 18:00] LABS: PTHIN 82.5 pg/mL (18.4-80.1)
[2024-07-27 18:07] LABS: Vitamin B12 > 2000 pg/mL (211-911); Vitamin D,25 Hydroxy 41.6 ng/mL
[2024-07-27 18:08] LABS: Protein, Urine (Random) 101.1 mg/dL (<11.9); Protein:Creat Ratio 722 mg/g CRE (0-200)
[2024-07-27 18:14] LABS: ALB/GLOB Ratio 0.7 RATIO (0.9-2.4); AST(SGOT) 10 U/L (15-37); Alanine Aminotransfer ALT/SGPT 7 U/L (13-56); Albumin, Serum 3.1 g/dL (3.2-5.0); Alkaline Phosphatase 118 U/L (45-117); Anion Gap 5 (5-15); BUN 16 mg/dL (7-18); BUN/Creat Ratio 13.9 RATIO (10-20); Calcium,Total 9.4 mg/dL (8.5-10.1); Chloride 113 mmol/L (98-107); Cholesterol 159 mg/dL (200); Creatinine, Serum 1.15 mg/dL (0.55-1.02); EST Glomerular Filtration Rate 49 mL/min (>60); Est Glom Filt Rate - Afr Amer 59 mL/min (>60); Ferritin 63 ng/mL (8-252); Globulin 4.2 g/dL (2.2-4.2); Glucose 94 mg/dL (74-106); High Density Lipoprotein 57 mg/dL; Iron 22 ug/dL (50-170); Iron Binding Capacity,Total 309 ug/dL (250-450); PERCENT IRON SATURATION 7.1 % (15.0-55.0); Potassium 3.5 mmol/L (3.5-5.1); Protein, Total 7.3 g/dL (6.4-8.2); Sodium Level 139 mmol/L (136-145); Thyroid Stim Hormone (TSH) 0.676 uIU/mL (0.358-3.740); Triglycerides 104 mg/dL; Very Low Density Lipoprotein 21 mg/dL (5-40)
== END | disposition home or self-care (01) ==
LOC: MTLAB 15:53
PROVIDERS: PCP Family Medicine; Referring Provider Family Medicine; Visit Provider Family Medicine
DX: I12.9 Hypertensive chronic kidney disease with stage 1 through stage 4 chronic kidney disease, or unspecified chronic kidney disease (principal); N18.2 Chronic kidney disease, stage 2 (mild); D64.9 Anemia, unspecified
CPT/HCPCS: 36415; 80053; 80061; 82306; 82570; 82607; 82728; 82746; 83540; 83550; 83970; 84156; 84443; 85025

== ENCOUNTER → 2024-11-23 | Outpatient (CLI) | payer MEDICARE, MEDICAID, SELFPAY ==
[2024-11-23 15:18] LABS: Hematocrit 37.4 % (37-47); Hemoglobin 11.1 g/dL (12.0-15.0); Mean Corp Hgb Conc 29.7 g/dL (32-36); Mean Corpuscular Hgb 25.6 pg (27.0-32.0); Mean Corpuscular Volume 86.4 fL (81-99); Mean Platelet Vol. 9.6 fl (6.2-12.0); POSITIVE MORPHOLOGY YES; Platelet Count 369 K/mm3 (150-450); RBC Distribution Width CV 21.5 % (11.6-14.6); RBC Distribution Width SD 67.8 fl (35.1-43.9); Red Blood Count 4.33 M/mm3 (4.2-5.4); White Blood Count 10.7 K/mm3 (4.4-11.0)
[2024-11-23 16:18] LABS: Scan Indicated on CBC? Y/N YES- FLAGS NOTED
[2024-11-23 16:38] LABS: ALB/GLOB Ratio 0.8 RATIO (0.9-2.4); AST(SGOT) 12 U/L (15-37); Alanine Aminotransfer ALT/SGPT 10 U/L (13-56); Albumin, Serum 3.3 g/dL (3.2-5.0); Alkaline Phosphatase 88 U/L (45-117); Anion Gap 8 (5-15); BUN 25 mg/dL (7-18); BUN/Creat Ratio 23.8 RATIO (10-20); Calcium,Total 9.3 mg/dL (8.5-10.1); Chloride 114 mmol/L (98-107); Creatinine, Serum 1.05 mg/dL (0.55-1.02); EST Glomerular Filtration Rate 55 mL/min (>60); Est Glom Filt Rate - Afr Amer 66 mL/min (>60); Globulin 3.9 g/dL (2.2-4.2); Glucose 94 mg/dL (74-106); Potassium 3.8 mmol/L (3.5-5.1); Protein, Total 7.2 g/dL (6.4-8.2); Sodium Level 141 mmol/L (136-145)
== END | disposition home or self-care (01) ==
LOC: MTLAB 11:34
PROVIDERS: PCP Family Medicine
DX: M05.9 Rheumatoid arthritis with rheumatoid factor, unspecified (principal)
CPT/HCPCS: 36415; 80053; 85027; 86140

== ENCOUNTER → 2025-07-26 | Outpatient (CLI) | payer MEDICARE, MEDICAID, SELFPAY ==
[2025-07-26 14:55] LABS: Hematocrit 37.9 % (37-47); Hemoglobin 11.6 g/dL (12.0-15.0); Immature Granulocytes Count 0.070 X10^3/uL (0.0-0.0); Mean Corp Hgb Conc 30.6 g/dL (32-36); Mean Corpuscular Volume 87.3 fL (81-99); Mean Platelet Vol. 10.7 fl (6.2-12.0); NRBC Flagged by Analyzer 0 % (0-5); Platelet Count 279 K/mm3 (150-450); RBC Distribution Width CV 19.9 % (11.6-14.6); RBC Distribution Width SD 63.0 fl (35.1-43.9); Red Blood Count 4.34 M/mm3 (4.2-5.4); White Blood Count 10.6 K/mm3 (4.4-11.0)
[2025-07-26 15:18] LABS: Creatinine, Urine (random) 11.00 mg/dL (28.00-217.00); Protein, Urine (Random) 43.7 mg/dL (0.0-12.0); Protein:Creat Ratio 3973 mg/g CRE (0-200)
[2025-07-26 15:24] LABS: PTHIN 49 pg/mL (11-61)
[2025-07-26 15:41] LABS: FOLATES,SERUM (FOLIC ACID) 11.60 ng/mL (4.60-34.80)
[2025-07-26 15:45] LABS: Iron 50 ug/dL (50-170); Iron Binding Capacity,Total 255 ug/dL (250-450); Iron Binding Capacity,Unsat 205 ug/dL (228-428)
[2025-07-26 15:48] LABS: AST(SGOT) 21 U/L (<=31); Alanine Aminotransfer ALT/SGPT 6 U/L (<=34); Albumin, Serum 3.6 g/dL (3.4-4.8); Alkaline Phosphatase 116 U/L (35-104); Anion Gap 11 (5-15); BUN 14 mg/dL (4-19); BUN/Creat Ratio 15.2 RATIO (10-20); Calcium,Total 9.4 mg/dL (7.6-11.0); Carbon Dioxide 19.2 mmol/L (21.0-32.0); Chloride 112 mmol/L (98-108); Cholesterol 147 mg/dL (<=200); Ferritin 103 ng/mL (22-378); Globulin 2.9 g/dL (2.2-4.2); Glucose 93 mg/dL (70-99); Low Density Lipoprotein Calc. 67 mg/dL; Potassium 3.5 mmol/L (3.3-5.1); Triglycerides 140 mg/dL; Very Low Density Lipoprotein 28 mg/dL (5-40); Vitamin B12 1195 pg/mL (180-914); Vitamin D,25 Hydroxy 43.0 ng/mL (30-100); cholesterol:hdl ratio screen 2.61
== END | disposition home or self-care (01) ==
LOC: MFPLAB 11:49
PROVIDERS: PCP Family Medicine; Visit Provider Family Medicine
DX: I12.9 Hypertensive chronic kidney disease with stage 1 through stage 4 chronic kidney disease, or unspecified chronic kidney disease (principal); N18.2 Chronic kidney disease, stage 2 (mild); D64.9 Anemia, unspecified
CPT/HCPCS: 36415; 80053; 80061; 82306; 82570; 82607; 82728; 82746; 83540; 83550; 83970; 84156; 84443; 85025